=== PATIENT | male | born 1955 | race Caucasian/White ===

== ENCOUNTER 2017-01-25 08:48 | Inpatient (IN) | payer MEDICAID, OTHER ==
[~2017-01-25] VITALS: Ht 177.8 cm; Wt 72.5 kg
[~2017-01-25 08:48] MED LIST: DIVA125T14 PO; OXCA150T3 PO
[2017-01-25] MEDS ORDERED: CEFTRIAXONE 1 GM/50 ML (PMX) 50 ML IVPB STA (09:02)
[2017-01-25] MEDS ORDERED: SOD CHLORIDE 0.9% 500 ML IV STA (09:02)
[2017-01-25] MEDS ORDERED: ALBUTEROL 0.5% (NEB) 2.5 MG/0.5 ML AMP INH STA (09:02)
[2017-01-25] MEDS ORDERED: AZITHROMYCIN 500MG/NS (PMX) 250 ML IV STA (09:02)
[2017-01-25] MEDS ORDERED: METHYLPREDNISOLONE 125 MG INJ IV ONE (09:30)
--- NOTE | 2017-01-25 09:36 | RADRPT ---
PROCEDURE: XR Chest. CLINICAL INDICATION: Shortness of breath TECHNIQUE: Single frontal view of the chest was obtained COMPARISON: None FINDINGS: The heart and mediastinum are within normal limits. There is elevation of the left diaphragm with left lower lobe atelectasis versus consolidation. There is no pleural effusion or pneumothorax. RPTAT: AA IMPRESSION: Moderate elevation of the left diaphragm with left lower lobe atelectasis versus consolidation. .Alex Adair MD, MD Date Time Electronically viewed and signed by .Alex Adair MD, on 01/25/2017 09:35 .S/
[2017-01-25] MEDS ORDERED: NICOTINE (21 MG/24 HR) PATCH TRANSDERM ONE (11:30)
[2017-01-25] MEDS ORDERED: SOD CHLORIDE 0.9% 1,000 ML IV SCH (12:34)
--- NOTE | 2017-01-25 12:39 | ERD ---
ER Documentation Chief Complaint Chief Complaint sob x 2 days, feels tired h/o copd HPI This is 62-year-old male with a history of COPD complaining of cough with productive sputum for 3 days subjective chills does not know if he has had a fever. He said gradually worsening shortness of breath is complaining of COPD exacerbation. No substernal chest pressure no back pain or nausea vomiting diarrhea ROS All systems reviewed and are negative except as per history of present illness. Medications Home Meds Reported Medications Oxcarbazepine* (Trileptal*) 150 Mg Tablet, PO BID, TAB 06/14/14 Divalproex Sodium* (Depakote*) 125 Mg Tablet., PO QID, TAB 06/14/14 Allergies Allergies: Coded Allergies: Unknown: Unable to obtain (Unverified , 06/14/14) PMhx/Soc Hx Respiratory Disorders: Yes (COPD) Hx Cardiac Disorders: Yes (HTN) Hx Miscellaneous Medical Probl: Yes (Schizophrenia, schizoaffective DO) Hx Alcohol Use: No Hx Substance Use: Yes (Marijuana) Hx Tobacco Use: Yes (Pack q day) Smoking Status: Current every day smoker FmHx Family History: No coronary disease Physical Exam Vitals Vital Signs Date Time Temp Pulse Resp B/P Pulse Ox O2 Delivery O2 Flow Rate FiO2 01/25/17 12:42 89 28 128/93 94 Nasal Cannula 3.0 01/25/17 09:37 Nasal Cannula 4.0 01/25/17 09:37 Nasal Cannula 4 01/25/17 09:37 99 20 128/93 94 Nasal Cannula 4.0 01/25/17 09:13 107 28 89 21 01/25/17 08:50 99.8 105 20 123/84 91 Physical Exam Const: Well-developed, well-nourished Head: Atraumatic, normocephalic Eyes: Normal Conjunctiva, PERRLA, EOMI, normal sclera, no nystagmus ENT: Normal External Ears, Nose and Mouth, moist mucus membranes. Neck: Full range of motion. No meningismus, no lymphadenopathy. Resp: Decreased breath sounds bilaterally with diffuse rhonchi Cardio: Regular rate and rhythm, no murmurs, S1 S2 present Abd: Soft, non tender x 4, non distended. Normal bowel sounds, no guarding or rebound, no pulsitile abdominal masses or bruits Skin: No petechiae or rashes, no ecchymosis , no maculopapular rash Back: No midline or flank tenderness Ext: No cyanosis, or edema, FROM x 4, normal inspection, neurovascularly intact x 4 Neur: Awake and alert, STR 5/5 x 4, sensation intact x 4, no focal findings, cerebellum intact Psych: Normal Mood and Affect Result Diagram: 01/25/1791901/25/17919 Results 24 hrs Laboratory Tests Test 01/25/17 09:20 White Blood Count 17.810^3/ul Red Blood Count 4.3510^6/ul Hemoglobin 13.9g/dl Hematocrit 39.3% Mean Corpuscular Volume 90.3fl Mean Corpuscular Hemoglobin 32.0pg Mean Corpuscular Hemoglobin Concent 35.4g/dl Red Cell Distribution Width 14.2% Platelet Count 18725^3/UL Mean Platelet Volume 11.2fl Neutrophils % 84.6% Lymphocytes % 5.4% Monocytes % 8.8% Eosinophils % 0.3% Basophils % 0.2% Nucleated Red Blood Cells % 0.0/100WBC Neutrophils # 15.110^3/ul Lymphocytes # 1.010^3/ul Monocytes # 1.610^3/ul Eosinophils # 0.110^3/ul Basophils # 0.010^3/ul Nucleated Red Blood Cells # 0.010^3/ul Sodium Level 137mmol/L Potassium Level 4.0mmol/L Chloride Level 98mmol/L Carbon Dioxide Level 31mmol/L Anion Gap 12 Blood Urea Nitrogen 14mg/dl Creatinine 0.63mg/dl Glucose Level 96mg/dl Calcium Level 9.0mg/dl Total Bilirubin 0.9mg/dl Direct Bilirubin 0.00mg/dl Indirect Bilirubin 0.9mg/dl Aspartate Amino Transf (AST/SGOT) 62IU/L Alanine Aminotransferase (ALT/SGPT) 34IU/L Alkaline Phosphatase 75IU/L Troponin I 0.031ng/ml Total Protein 7.7g/dl Albumin 3.9g/dl Globulin 3.80g/dl Albumin/Globulin Ratio 1.02 Current Medications Medications (Trade) Dose Ordered Sig/Jennifer Route PRN Reason Start Time Stop Time Status Last Admin Dose Admin Sodium Chloride (NS) 500 ml @ 500 mls/hr Q1H STAT IV 01/25/17 09:02 01/25/17 10:01 DC 01/25/17 09:30 Methylprednisolone Sodium Succinate 125 mg 125 mg ONCE ONCE IV 01/25/17 09:30 01/25/17 09:31 DC 01/25/17 09:29 Azithromycin 250 ml @ 250 mls/hr ONCE STAT IV 01/25/17 09:02 01/25/17 10:01 DC 01/25/17 09:29 Ceftriaxone Sodium (Rocephin) 50 ml @ 100 mls/hr ONCE STAT IVPB 01/25/17 09:02 01/25/17 09:31 DC 01/25/17 09:30 Albuterol (Proventil 0.5% (Neb)) 10 mg ONCE STAT INH 01/25/17 09:02 01/25/17 09:05 DC 01/25/17 09:08 Nicotine 1 patch 1 patch ONCE ONCE TRANSDERM 01/25/17 11:30 01/25/17 11:31 DC 01/25/17 11:55 Sodium Chloride (NS) 1,000 ml @ 80 mls/hr [id number] IV 01/25/17 12:34 01/26/17 01:03 Ondansetron HCl (Zofran Inj) 4 mg BRIDGE ORDER PRN IV NAUSEA AND/OR VOMITING 01/25/17 13:00 01/26/17 12:59 Acetaminophen (Tylenol Tab) 650 mg ER BRIDGE PRN PO MILD PAIN/FEVER 01/25/17 13:00 01/26/17 12:59 Procedures/MDM EKG: Rate/Rhythm: Sinus tachycardia QRS, ST, QT: NORMAL CA, QRS, QT] Impression: Sinus tachycardia PROCEDURE: XR Chest. CLINICAL INDICATION: Shortness of breath TECHNIQUE: Single frontal view of the chest was obtained COMPARISON: None FINDINGS: The heart and mediastinum are within normal limits. There is elevation of the left diaphragm with left lower lobe atelectasis versus consolidation. There is no pleural effusion or pneumothorax. RPTAT: AA IMPRESSION: Moderate elevation of the left diaphragm with left lower lobe atelectasis versus consolidation. .Alex Adair MD, MD Date Time Electronically viewed and signed by .Alex Adair MD, on 01/25/2017 09: 35 .S/ CC: DALILA GEORGES DO Patient received breathing treatments blood cultures and IV antibiotics. We will met the patient for pneumonia left lower lobe with COPD exacerbation Departure Diagnosis: Primary Impression: Left lower lobe pneumonia Pneumonia type: due to unspecified organism Qualified Code: J18.1 - Pneumonia of left lower lobe due to infectious organism Additional Impression: COPD exacerbation Condition: Stable DALILA GEORGES DO Jan 25, 2017 12:39
[2017-01-25] MEDS ORDERED: ACETAMINOPHEN 325 MG TAB PO PRN ×2 (13:00→22:30)
[2017-01-25] MEDS ORDERED: ONDANSETRON 4 MG INJ IV PRN ×2 (13:00→22:30)
[2017-01-25 14:23] VITALS: Ht 177.8 cm; Wt 72.5 kg
[2017-01-25 14:40] VITALS: BP 125/86; PULSE 89; RESP 18
[2017-01-25 20:00] VITALS: BP 138/87; RESP 18
--- NOTE | 2017-01-25 22:13 | HP ---
Date/Time of Note Date/Time of Note DATE: 01/25/17 TIME: 22:10 Assessment/Plan VTE Prophylaxis VTE Prophylaxis Intervention: SCD's Lines/Catheters Urinary Cath still in place: No Assessment/Plan Chief Complaint/Hosp Course Assessment and plan 1. COPD with exacerbation. Alcohol Law Enforcement Agent was consulted. Continue bronchodilators. Continue on O2 and titrate down as tolerated. 2. Sepsis and pneumonia. Patient does have chest radiograph consistent with possible pneumonia. Will place on antibiotics for now. Monitor for clinical improvement. 3. Reported history of myocardial infarction. Follow-up on echocardiogram. We will get spike machine feeder consultation pending her clinical course. 4. Reported psychiatric disorder. Patient does report following up with outpatient mental clinic. Patient to be resumed on his home medications once obtained. Admission process time greater than [address] Singh Problems: HPI/ROS Admit Date/Time Admit Date/Time Jan 25, 2017 at 12:36 Hx of Present Illness This is a 62-year-old male with history of COPD, bipolar disorder, reported psychotic tendencies, manic depression, hypertension, reported myocardial infarction, who came to [facility] due to reports of shortness of breath. Of note patient was recently released from senior living on January 22, 2017. He reportedly went to the street thereafter and started to have some cough with associated shortness of breath and congestion. He reports that this progressively got worse and as such was brought to [facility] for further evaluation. Upon examination patient did have initial chest x-ray did show him to have moderate elevation of left diaphragm with left lower lobe atelectasis versus consolidation. He was slightly tachycardic initially with respiratory rate as high as 28. His pulse ox on room air initially was 89% as well. On labs he had a white count of 17.8 I did have clinical picture of sepsis with pneumonia. He was noted with pneumonia normocytic normochromic. BMP was otherwise unremarkable and troponin I was negative. We will evaluate him for the aformentiond issues. ROS 12 point review of systems obtained and entirely negative except that mentioned in the history of present illness PMH/Family/Social Past Medical History f COPD, bipolar disorder, reported psychotic tendencies, manic depression, hypertension, reported myocardial infarction Past Surgical History Past Surgical Hx: no surgical history Family History Significant Family History: no pertinent family hx Social History Smoking Status: Current some day smoker Drug Use: marijuana Exam/Review of Systems Vital Signs Vitals Vital Signs Date Time Temp Pulse Resp B/P Pulse Ox O2 Delivery O2 Flow Rate FiO2 01/25/17 14:46 Nasal Cannula 3.0 01/25/17 14:40 98.2 89 18 125/86 94 01/25/17 09:13 21 Exam Constitutional: alert, oriented Psych: nl mood/affect Head: normocephalic Neck: non-tender, supple Respiratory: wheezing Cardiovascular: other (Regular rate) Gastrointestinal: non-tender, soft Musculoskeletal: nl extremities to inspection, nl gait and stance Neurological: BOND MANAGER II-XII intact, nl mental status, nl speech Skin: nl turgor Labs Result Diagram: 01/25/1791901/25/17919 Medications Medications Current Medications Influenza Virus Vaccine (Fluzone) 0.5 ml ONCE ONCE IM* ; Start 01/26/17 at 09:00 ; Stop 01/26/17 at 09:01 Ondansetron HCl (Zofran Inj) 4 mg Q6H PRN IV NAUSEA AND/OR VOMITING; Start 01/25/17 at 22:30; Status UNV Acetaminophen (Tylenol Tab) 650 mg Q6H PRN PO PAIN LEVEL 1-3 OR FEVER; Start 01/25/17 at 22:30; Status UNV Acetaminophen (Tylenol Supp) 650 mg Q6H PRN [place] PAIN LEVEL 1-3 OR FEVER; Start 01/25/17 at 22:30; Status UNV Acetaminophen/ Hydrocodone Bitart ([place] (5/325)) 1 tab Q6H PRN PO MODERATE PAIN LEVEL 4-6; Start 01/25/17 at 22:30; Status UNV Acetaminophen/ Hydrocodone Bitart ([place] (5/325)) 2 tab Q6H PRN PO SEVERE PAIN LEVEL 7-10; Start 01/25/17 at 22:30; Status UNV Morphine Sulfate (morphine) 2 mg Q4H PRN IV SEVERE PAIN LEVEL 7-10; Start 01/25 at 22:30; Status UNV Docusate Sodium (Colace) 100 mg Q12H PRN PO CONSTIPATION; Start 01/25/17 at 22: 30; Status UNV Magnesium Hydroxide (Milk Of Mag) 30 ml DAILY PRN PO CONSTIPATION; Start at 22:30; Status UNV Bisacodyl (Dulcolax Supp) 10 mg DAILY PRN [place] CONSTIPATION; Start 01/25/17 at 22 :30; Status UNV Pantoprazole 40 mg 40 mg DAILY@06 IV ; Start 01/26/17 at 06:00; Status UNV Azithromycin 250 ml @ 250 mls/hr Q24H IVPB ; Start 01/25/17 at 22:30; Status UNV Ceftriaxone Sodium (Rocephin) 50 ml @ 100 mls/hr Q24H IVPB ; Start 01/25/17 at 22:30; Status UNV TAL MOSES Jan 25, 2017 22:13
--- NOTE | 2017-01-25 22:13 | HP ---
Date/Time of Note Date/Time of Note DATE: 01/25/17 TIME: 22:10 Assessment/Plan VTE Prophylaxis VTE Prophylaxis Intervention: SCD's Lines/Catheters Urinary Cath still in place: No Assessment/Plan Chief Complaint/Hosp Course Assessment and plan 1. COPD with exacerbation. Vp Human Resources was consulted. Continue bronchodilators. Continue on O2 and titrate down as tolerated. 2. Sepsis and pneumonia. Patient does have chest radiograph consistent with possible pneumonia. Will place on antibiotics for now. Monitor for clinical improvement. 3. Reported history of myocardial infarction. Follow-up on echocardiogram. We will get road packer operator consultation pending her clinical course. 4. Reported psychiatric disorder. Patient does report following up with outpatient mental clinic. Patient to be resumed on his home medications once obtained. Admission process time greater than [address] Singh Problems: HPI/ROS Admit Date/Time Admit Date/Time Jan 25, 2017 at 12:36 Hx of Present Illness This is a 62-year-old male with history of COPD, bipolar disorder, reported psychotic tendencies, manic depression, hypertension, reported myocardial infarction, who came to [facility] due to reports of shortness of breath. Of note patient was recently released from senior care on January 22, 2017. He reportedly went to the street thereafter and started to have some cough with associated shortness of breath and congestion. He reports that this progressively got worse and as such was brought to [facility] for further evaluation. Upon examination patient did have initial chest x-ray did show him to have moderate elevation of left diaphragm with left lower lobe atelectasis versus consolidation. He was slightly tachycardic initially with respiratory rate as high as 28. His pulse ox on room air initially was 89% as well. On labs he had a white count of 17.8 I did have clinical picture of sepsis with pneumonia. He was noted with pneumonia normocytic normochromic. BMP was otherwise unremarkable and troponin I was negative. We will evaluate him for the aformentiond issues. ROS 12 point review of systems obtained and entirely negative except that mentioned in the history of present illness PMH/Family/Social Past Medical History f COPD, bipolar disorder, reported psychotic tendencies, manic depression, hypertension, reported myocardial infarction Past Surgical History Past Surgical Hx: no surgical history Family History Significant Family History: no pertinent family hx Social History Smoking Status: Current some day smoker Drug Use: marijuana Exam/Review of Systems Vital Signs Vitals Vital Signs Date Time Temp Pulse Resp B/P Pulse Ox O2 Delivery O2 Flow Rate FiO2 01/25/17 14:46 Nasal Cannula 3.0 01/25/17 14:40 98.2 89 18 125/86 94 01/25/17 09:13 21 Exam Constitutional: alert, oriented Psych: nl mood/affect Head: normocephalic Neck: non-tender, supple Respiratory: wheezing Cardiovascular: other (Regular rate) Gastrointestinal: non-tender, soft Musculoskeletal: nl extremities to inspection, nl gait and stance Neurological: PAINT SPRAYER SANDBLASTER II-XII intact, nl mental status, nl speech Skin: nl turgor Labs Result Diagram: 01/25/1791901/25/17919 Medications Medications Current Medications Influenza Virus Vaccine (Fluzone) 0.5 ml ONCE ONCE IM* ; Start 01/26/17 at 09:00 ; Stop 01/26/17 at 09:01 Ondansetron HCl (Zofran Inj) 4 mg Q6H PRN IV NAUSEA AND/OR VOMITING; Start 01/25/17 at 22:30; Status UNV Acetaminophen (Tylenol Tab) 650 mg Q6H PRN PO PAIN LEVEL 1-3 OR FEVER; Start 01/25/17 at 22:30; Status UNV Acetaminophen (Tylenol Supp) 650 mg Q6H PRN [place] PAIN LEVEL 1-3 OR FEVER; Start 01/25/17 at 22:30; Status UNV Acetaminophen/ Hydrocodone Bitart ([place] (5/325)) 1 tab Q6H PRN PO MODERATE PAIN LEVEL 4-6; Start 01/25/17 at 22:30; Status UNV Acetaminophen/ Hydrocodone Bitart ([place] (5/325)) 2 tab Q6H PRN PO SEVERE PAIN LEVEL 7-10; Start 01/25/17 at 22:30; Status UNV Morphine Sulfate (morphine) 2 mg Q4H PRN IV SEVERE PAIN LEVEL 7-10; Start 01/25 at 22:30; Status UNV Docusate Sodium (Colace) 100 mg Q12H PRN PO CONSTIPATION; Start 01/25/17 at 22: 30; Status UNV Magnesium Hydroxide (Milk Of Mag) 30 ml DAILY PRN PO CONSTIPATION; Start at 22:30; Status UNV Bisacodyl (Dulcolax Supp) 10 mg DAILY PRN [place] CONSTIPATION; Start 01/25/17 at 22 :30; Status UNV Pantoprazole 40 mg 40 mg DAILY@06 IV ; Start 01/26/17 at 06:00; Status UNV Azithromycin 250 ml @ 250 mls/hr Q24H IVPB ; Start 01/25/17 at 22:30; Status UNV Ceftriaxone Sodium (Rocephin) 50 ml @ 100 mls/hr Q24H IVPB ; Start 01/25/17 at 22:30; Status UNV TAL MOSES Jan 25, 2017 22:13
--- NOTE | 2017-01-25 22:13 | HP ---
Date/Time of Note Date/Time of Note DATE: 01/25/17 TIME: 22:10 Assessment/Plan VTE Prophylaxis VTE Prophylaxis Intervention: SCD's Lines/Catheters Urinary Cath still in place: No Assessment/Plan Chief Complaint/Hosp Course Assessment and plan 1. COPD with exacerbation. Surgical Processor was consulted. Continue bronchodilators. Continue on O2 and titrate down as tolerated. 2. Sepsis and pneumonia. Patient does have chest radiograph consistent with possible pneumonia. Will place on antibiotics for now. Monitor for clinical improvement. 3. Reported history of myocardial infarction. Follow-up on echocardiogram. We will get slag dumper consultation pending her clinical course. 4. Reported psychiatric disorder. Patient does report following up with outpatient mental clinic. Patient to be resumed on his home medications once obtained. Admission process time greater than [address] Singh Problems: HPI/ROS Admit Date/Time Admit Date/Time Jan 25, 2017 at 12:36 Hx of Present Illness This is a 62-year-old male with history of COPD, bipolar disorder, reported psychotic tendencies, manic depression, hypertension, reported myocardial infarction, who came to [facility] due to reports of shortness of breath. Of note patient was recently released from long-term on January 22, 2017. He reportedly went to the street thereafter and started to have some cough with associated shortness of breath and congestion. He reports that this progressively got worse and as such was brought to [facility] for further evaluation. Upon examination patient did have initial chest x-ray did show him to have moderate elevation of left diaphragm with left lower lobe atelectasis versus consolidation. He was slightly tachycardic initially with respiratory rate as high as 28. His pulse ox on room air initially was 89% as well. On labs he had a white count of 17.8 I did have clinical picture of sepsis with pneumonia. He was noted with pneumonia normocytic normochromic. BMP was otherwise unremarkable and troponin I was negative. We will evaluate him for the aformentiond issues. ROS 12 point review of systems obtained and entirely negative except that mentioned in the history of present illness PMH/Family/Social Past Medical History f COPD, bipolar disorder, reported psychotic tendencies, manic depression, hypertension, reported myocardial infarction Past Surgical History Past Surgical Hx: no surgical history Family History Significant Family History: no pertinent family hx Social History Smoking Status: Current some day smoker Drug Use: marijuana Exam/Review of Systems Vital Signs Vitals Vital Signs Date Time Temp Pulse Resp B/P Pulse Ox O2 Delivery O2 Flow Rate FiO2 01/25/17 14:46 Nasal Cannula 3.0 01/25/17 14:40 98.2 89 18 125/86 94 01/25/17 09:13 21 Exam Constitutional: alert, oriented Psych: nl mood/affect Head: normocephalic Neck: non-tender, supple Respiratory: wheezing Cardiovascular: other (Regular rate) Gastrointestinal: non-tender, soft Musculoskeletal: nl extremities to inspection, nl gait and stance Neurological: DROP HAMMER MECHANIC II-XII intact, nl mental status, nl speech Skin: nl turgor Labs Result Diagram: 01/25/1791901/25/17919 Medications Medications Current Medications Influenza Virus Vaccine (Fluzone) 0.5 ml ONCE ONCE IM* ; Start 01/26/17 at 09:00 ; Stop 01/26/17 at 09:01 Ondansetron HCl (Zofran Inj) 4 mg Q6H PRN IV NAUSEA AND/OR VOMITING; Start 01/25/17 at 22:30; Status UNV Acetaminophen (Tylenol Tab) 650 mg Q6H PRN PO PAIN LEVEL 1-3 OR FEVER; Start 01/25/17 at 22:30; Status UNV Acetaminophen (Tylenol Supp) 650 mg Q6H PRN [place] PAIN LEVEL 1-3 OR FEVER; Start 01/25/17 at 22:30; Status UNV Acetaminophen/ Hydrocodone Bitart ([place] (5/325)) 1 tab Q6H PRN PO MODERATE PAIN LEVEL 4-6; Start 01/25/17 at 22:30; Status UNV Acetaminophen/ Hydrocodone Bitart ([place] (5/325)) 2 tab Q6H PRN PO SEVERE PAIN LEVEL 7-10; Start 01/25/17 at 22:30; Status UNV Morphine Sulfate (morphine) 2 mg Q4H PRN IV SEVERE PAIN LEVEL 7-10; Start 01/25 at 22:30; Status UNV Docusate Sodium (Colace) 100 mg Q12H PRN PO CONSTIPATION; Start 01/25/17 at 22: 30; Status UNV Magnesium Hydroxide (Milk Of Mag) 30 ml DAILY PRN PO CONSTIPATION; Start at 22:30; Status UNV Bisacodyl (Dulcolax Supp) 10 mg DAILY PRN [place] CONSTIPATION; Start 01/25/17 at 22 :30; Status UNV Pantoprazole 40 mg 40 mg DAILY@06 IV ; Start 01/26/17 at 06:00; Status UNV Azithromycin 250 ml @ 250 mls/hr Q24H IVPB ; Start 01/25/17 at 22:30; Status UNV Ceftriaxone Sodium (Rocephin) 50 ml @ 100 mls/hr Q24H IVPB ; Start 01/25/17 at 22:30; Status UNV TAL MOSES Jan 25, 2017 22:13
[2017-01-25] MEDS ORDERED: morphine 2 MG INJ IV PRN (22:30)
[2017-01-25] MEDS ORDERED: DOCUSATE SODIUM 100 MG CAP PO PRN (22:30)
[2017-01-25] MEDS ORDERED: NACL 0.9% 3 ML SYG IV SCH (22:30)
[2017-01-25] MEDS ORDERED: HYDROCODONE/APAP (5/325) TAB PO PRN (22:30)
[2017-01-25] MEDS ORDERED: MAGNESIUM HYDROXIDE 30ML CUP PO PRN (22:30)
[2017-01-25] MEDS ORDERED: ACETAMINOPHEN 650 MG SUPP PR PRN (22:30)
[2017-01-25] MEDS ORDERED: BISACODYL 10 MG SUPP PR PRN (22:30)
[2017-01-25] MEDS: SOD CHLORIDE 0.9% 1,000 ML IV SCH (23:30)
--- NOTE | 2017-01-26 01:36 | CONS ---
DATE OF ADMISSION: 01/25/2017 DATE OF CONSULTATION: TYPE OF CONSULTATION: Pulmonary. REASON FOR CONSULTATION: Shortness of breath and cough. Thank you, Dr. Gmoez, for this consultation. HISTORY OF PRESENT ILLNESS: This is a 62-year-old patient with extensive tobacco history, smokes 1 pack per day, continues to smoke, admitted with several-day history of increasing cough, congestion, but no hemoptysis, hematemesis. No nausea, no vomiting. He states he has lost 10 to 15 pounds of weight in the last year or so. PAST MEDICAL HISTORY: Tobacco and marijuana use, essential hypertension and schizoaffective disorde r. MEDICATIONS: Per chart. ALLERGIES: NONE. SOCIAL HISTORY: Positive tobacco and marijuana history, alcohol p.r.n. PHYSICAL EXAMINATION: GENERAL: Thin gentleman, awake, alert, oriented, talking in full and complete sentences. VITAL SIGNS: Currently afebrile. Pulse is 89, blood pressure 125/86, O2 saturation 96% on 3 L nasa l cannula. NECK: Supple. No JVD or lymphadenopathy. CARDIAC: S1, S2, no added sounds or murmurs. CHEST: Diminished air entry bilaterally. ABDOMEN: Soft, nontender. No guarding or rebound. EXTREMITIES: No cyanosis, clubbing, or edema. NEUROLOGIC: Grossly intact. No focal deficits. LABORATORY DATA: White count 17.8, hemoglobin 13.9, platelets of 153. Chemistry within normal limi ts. DIAGNOSTIC DATA: Chest x-ray demonstrates elevation of left hemidiaphragm with left lower lobe atel ectasis versus consolidation. IMPRESSION AND PLAN: 1. Likely community-acquired pneumonia. 2. Probable chronic obstructive pulmonary disease with acute exacerbation. 3. Consent for possible underlying lung mass given extensive tobacco history. The patient will need: 1. Bronchodilators. 2. Antibiotics. 3. Supplemental O2. 4. CT chest, noncontrast. 5. DVT and GI prophylaxis. Dictated By: DENISA SCHMIDT/FOZIA Conf#: [id number] DID#: [id number]
[2017-01-26] MEDS: ALBUTEROL/IPRATROPIUM (NEB) 3 ML AMP HHN SCH ×4 (02:04→21:06)
[2017-01-26 02:54] VITALS: BP 156/94; RESP 24
[2017-01-26] MEDS: SOD CHLORIDE 0.9% 1,000 ML IV SCH (03:17)
--- NOTE | 2017-01-26 04:15 | RADRPT ---
PROCEDURE: CT Chest without contrast. CLINICAL INDICATION: COPD. Pneumonia. TECHNIQUE: CT scan of the chest without contrast was performed on a multidetector high-resolution CT scanner. Coronal and sagittal reformatted images were obtained from the axial source images. The total exam CTDI equals 10.16 mGy and the total exam DLP equals 415.72 mGy-cm. One or more of the following dose reduction techniques were utilized: 1.) Automated exposure control 2.) Adjustment of the mA +/- kV according to patient's size 3.) Use of iterative reconstruction technique. COMPARISON: Plain film chest dated today, earlier in the day. FINDINGS: Elevation left hemidiaphragm. Left lower lobe partial collapse versus dense pneumonia at the lower s egments. Bronchiolitis at the posterior mid segments of the left upper lobe. Fibrotic banding versus atelectasis in the region of the lingula. Mild atelectasis at the posterior right costophrenic angl e. Mild ground-glass opacities at the lingula and the anterior right middle lobe, perhaps representi ng early pneumonia versus bronchiolitis. No evident pleural effusion or pneumothorax. Superior mediastinum bilateral paratracheal lymph nodes are mildly prominent measuring up to about 2 1 x 8 mm on the left. Findings otherwise nonspecific. Small shoddy lymph nodes are seen in the regio n of the left mediastinal AP window. The azygos lymph node measuring 26 x 21 mm, and demonstrates a fatty hilum. Otherwise, the mediastinum is unremarkable without evidence for mass or lymphadenopathy . The vascular structures of the mediastinum are normal in course and caliber. Aortic vascular cindy cifications and coronary artery calcifications are present. The heart size is likely upper limits o f normal, without evidence for pericardial thickening or effusion. The axillary regions, subpectoral regions, and supraclavicular regions are all unremarkable. The harris rrounding chest wall is unremarkable. Imaging obtained through the upper abdomen reveals no acute a bnormality. The surrounding osseous structures are remarkable for likely osteoporotic fracture defo rmities at the T5-T9 levels, with loss of central and anterior height. 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 Disc space narrowing and disc vacuum eff ect seen throughout the thoracic and upper lumbar spine. No osteolytic or osteoblastic lesion is det ected. IMPRESSION: 1. Elevation of left hemidiaphragm with atelectasis versus airspace disease in the posterior lower s egments of the left lower lobe, and differential considerations include pneumonia. 2. Mild atelectasis at the right posterior costophrenic angle. 3. Bronchiolitis in the posterior left upper lobe. 4. Atelectasis versus early airspace disease in the lingula and anterior right middle lobe. 5. Anterior mediastinal mild bilateral paratracheal adenopathy, otherwise nonspecific. RPTAT: [facility]U Physician Kelsi Date Time Electronically viewed and signed by Malcolm Amaral Physician on 01/26/2017 04:14 RS/
[2017-01-26] MEDS: HYDROCODONE/APAP (5/325) TAB PO PRN ×2 (04:53→20:30)
[2017-01-26] MEDS ORDERED: PANTOPRAZOLE 40 MG INJ ONE (04:55)
[2017-01-26] MEDS ORDERED: PANTOPRAZOLE 40 MG INJ IV SCH (06:00)
[2017-01-26 07:57] VITALS: BP 120/82; RESP 18
[2017-01-26] MEDS ORDERED: INFLUENZA VIRUS VACCINE 0.5 ML (DISPENSING) IM* ONE (09:00)
--- NOTE | 2017-01-26 09:08 | PN ---
Date/Time of Note Date/Time of Note DATE: 01/26/17 TIME: 09:05 Assessment/Plan VTE Prophylaxis VTE Prophylaxis Intervention: SCD's Lines/Catheters [facility] ([facility] Peripheral IV Urinary Cath still in place: No Assessment/Plan Chief Complaint/Hosp Course Assessment and plan 1. COPD with exacerbation. 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 Continue bronchodilators. Continue on O2 and titrate down as tolerated. Slowly improving 2. Sepsis and pneumonia. Patient does have chest radiograph consistent with pneumonia. Continue antibiotics. Plan for follow-up radiograph of the chest 3. Reported history of myocardial infarction. Beta-ivana on hold for now due to wheezing. Echocardiogram pending. 4. Reported psychiatric disorder. Patient does report following up with outpatient mental clinic. Patient to be resumed on his home medications once obtained. Disposition plan: Slowly improving. 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 Continue with antibiotics and breathing treatments Discussed plan of care with Dr. Singh Problems: Subjective 24 Hr Interval Summary Free Text/Dictation Reports little better breathing today. Exam/Review of Systems Vital Signs Vitals Vital Signs Date Time Temp Pulse Resp B/P Pulse Ox O2 Delivery O2 Flow Rate FiO2 01/26/17 07:57 97.6 73 18 120/82 92 01/26/17 02:05 2.0 01/26/17 02:05 Nasal Cannula 01/25/17 09:13 21 Intake and Output 01/25/17 01/25/17 01/26/17 15:00 23:00 07:00 Intake Total 400 ml 1625 ml Balance 400 ml 1625 ml Exam Constitutional: alert, oriented Psych: nl mood/affect Head: normocephalic Neck: non-tender, supple Respiratory: wheezing Cardiovascular: other (Regular rate) Gastrointestinal: non-tender, soft Musculoskeletal: nl extremities to inspection, nl gait and stance Neurological: PULP DRIER II-XII intact, nl mental status, nl speech Skin: nl turgor Results Result Diagram: 01/26/17 0444 01/26/17 0448 Results 24 hrs Laboratory Tests Test 01/25/17 09:20 01/26/17 04:44 01/26/17 04:48 White Blood Count 17.8 #H 7.7 # Red Blood Count 4.35 L 4.23 L Hemoglobin 13.9 L 13.1 L Hematocrit 39.3 L 39.4 L Mean Corpuscular Volume 90.3 93.1 Mean Corpuscular Hemoglobin 32.0 31.0 Mean Corpuscular Hemoglobin Concent 35.4 33.2 Red Cell Distribution Width 14.2 14.8 H Platelet Count 153 144 Mean Platelet Volume 11.2 H 11.6 H Neutrophils % 84.6 H 85.0 H Lymphocytes % 5.4 L 9.2 L Monocytes % 8.8 5.2 Eosinophils % 0.3 0.0 Basophils % 0.2 0.1 Nucleated Red Blood Cells % 0.0 0.0 Neutrophils # 15.1 H 6.5 Lymphocytes # 1.0 0.7 L Monocytes # 1.6 H 0.4 Eosinophils # 0.1 0.0 Basophils # 0.0 0.0 Nucleated Red Blood Cells # 0.0 0.0 Sodium Level 137 147 H Potassium Level 4.0 4.3 Chloride Level 98 108 # Carbon Dioxide Level 31 32 H Anion Gap 12 11 Blood Urea Nitrogen 14 14 Creatinine 0.63 0.59 L Glucose Level 96 153 Calcium Level 9.0 9.1 Total Bilirubin 0.9 0.1 L Direct Bilirubin 0.00 0.00 Indirect Bilirubin 0.9 0.1 Aspartate Amino Transf (AST/SGOT) 62 H 39 Alanine Aminotransferase (ALT/SGPT) 34 32 Alkaline Phosphatase 75 72 Troponin I 0.031 Total Protein 7.7 6.9 Albumin 3.9 3.4 Globulin 3.80 H 3.50 H Albumin/Globulin Ratio 1.02 0.97 Hemoglobin A1c 5.4 Phosphorus Level 3.1 Magnesium Level 2.1 Triglycerides Level 52 Cholesterol Level 124 LDL Cholesterol, Calculated 66 HDL Cholesterol 48 Cholesterol/HDL Ratio 2.5 Thyroid Stimulating Hormone (TSH) 0.222 L Free Thyroxine Index 3.05 Thyroxine (T4) 8.1 Triiodothyronine (T3) Uptake 37.6 Medications Medications Current Medications Ondansetron HCl (Zofran Inj) 4 mg Q6H PRN IV NAUSEA AND/OR VOMITING; Start 01/25/17 at 22:30 Acetaminophen (Tylenol Tab) 650 mg Q6H PRN PO PAIN LEVEL 1-3 OR FEVER; Start 01/25/17 at 22:30 Acetaminophen (Tylenol Supp) 650 mg Q6H PRN [place] PAIN LEVEL 1-3 OR FEVER; Start 01/25/17 at 22:30 Acetaminophen/ Hydrocodone Bitart ([place] (5/325)) 1 tab Q6H PRN PO MODERATE PAIN LEVEL 4-6 Last administered on 01/26/17 04:53; Admin Dose 1 TAB; Start at 22:30 Acetaminophen/ Hydrocodone Bitart ([place] (5/325)) 2 tab Q6H PRN PO SEVERE PAIN LEVEL 7-10; Start 01/25/17 at 22:30 Morphine Sulfate (morphine) 2 mg Q4H PRN IV SEVERE PAIN LEVEL 7-10; Start 01/25 at 22:30 Docusate Sodium (Colace) 100 mg Q12H PRN PO CONSTIPATION; Start 01/25/17 at 22: 30 Magnesium Hydroxide (Milk Of Mag) 30 ml DAILY PRN PO CONSTIPATION; Start at 22:30 Bisacodyl (Dulcolax Supp) 10 mg DAILY PRN [place] CONSTIPATION; Start 01/25/17 at 22 :30 Pantoprazole 40 mg 40 mg DAILY@06 IV Last administered on 01/26/17 05:04; Admin Dose 40 MG; Start 01/26/17 at 06:00 Azithromycin 250 ml @ 250 mls/hr Q24H IVPB ; Start 01/26/17 at 09:00 Ceftriaxone Sodium (Rocephin) 50 ml @ 100 mls/hr Q24H IVPB ; Start 01/26/17 at 08:00 TAL MOSES Jan 26, 2017 09:08
--- NOTE | 2017-01-26 09:08 | PN ---
Date/Time of Note Date/Time of Note DATE: 01/26/17 TIME: 09:05 Assessment/Plan VTE Prophylaxis VTE Prophylaxis Intervention: SCD's Lines/C[facility]ters [facility] IV Urinary Cath still in place: No Assessment/Plan Chief Complaint/Hosp Course Assessment and plan 1. COPD with exacerbation. 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 Continue bronchodilators. Continue on O2 and titrate down as tolerated. Slowly improving 2. Sepsis and pneumonia. Patient does have chest radiograph consistent with pneumonia. Continue antibiotics. Plan for follow-up radiograph of the chest 3. Reported history of myocardial infarction. Beta-ivana on hold for now due to wheezing. Echocardiogram pending. 4. Reported psychiatric disorder. Patient does report following up with outpatient mental clinic. Patient to be resumed on his home medications once obtained. Disposition plan: Slowly improving. 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 Continue with antibiotics and breathing treatments Discussed plan of care with Dr. Singh Problems: Subjective 24 Hr Interval Summary Free Text/Dictation Reports little better breathing today. Exam/Review of Systems Vital Signs Vitals Vital Signs Date Time Temp Pulse Resp B/P Pulse Ox O2 Delivery O2 Flow Rate FiO2 01/26/17 07:57 97.6 73 18 120/82 92 01/26/17 02:05 2.0 01/26/17 02:05 Nasal Cannula 01/25/17 09:13 21 Intake and Output 01/25/17 01/25/17 01/26/17 15:00 23:00 07:00 Intake Total 400 ml 1625 ml Balance 400 ml 1625 ml Exam Constitutional: alert, oriented Psych: nl mood/affect Head: normocephalic Neck: non-tender, supple Respiratory: wheezing Cardiovascular: other (Regular rate) Gastrointestinal: non-tender, soft Musculoskeletal: nl extremities to inspection, nl gait and stance Neurological: PHYSICAL SCIENTIST II-XII intact, nl mental status, nl speech Skin: nl turgor Results Result Diagram: 01/26/17 0444 01/26/17 0448 Results 24 hrs Laboratory Tests Test 01/25/17 09:20 01/26/17 04:44 01/26/17 04:48 White Blood Count 17.8 #H 7.7 # Red Blood Count 4.35 L 4.23 L Hemoglobin 13.9 L 13.1 L Hematocrit 39.3 L 39.4 L Mean Corpuscular Volume 90.3 93.1 Mean Corpuscular Hemoglobin 32.0 31.0 Mean Corpuscular Hemoglobin Concent 35.4 33.2 Red Cell Distribution Width 14.2 14.8 H Platelet Count 153 144 Mean Platelet Volume 11.2 H 11.6 H Neutrophils % 84.6 H 85.0 H Lymphocytes % 5.4 L 9.2 L Monocytes % 8.8 5.2 Eosinophils % 0.3 0.0 Basophils % 0.2 0.1 Nucleated Red Blood Cells % 0.0 0.0 Neutrophils # 15.1 H 6.5 Lymphocytes # 1.0 0.7 L Monocytes # 1.6 H 0.4 Eosinophils # 0.1 0.0 Basophils # 0.0 0.0 Nucleated Red Blood Cells # 0.0 0.0 Sodium Level 137 147 H Potassium Level 4.0 4.3 Chloride Level 98 108 # Carbon Dioxide Level 31 32 H Anion Gap 12 11 Blood Urea Nitrogen 14 14 Creatinine 0.63 0.59 L Glucose Level 96 153 Calcium Level 9.0 9.1 Total Bilirubin 0.9 0.1 L Direct Bilirubin 0.00 0.00 Indirect Bilirubin 0.9 0.1 Aspartate Amino Transf (AST/SGOT) 62 H 39 Alanine Aminotransferase (ALT/SGPT) 34 32 Alkaline Phosphatase 75 72 Troponin I 0.031 Total Protein 7.7 6.9 Albumin 3.9 3.4 Globulin 3.80 H 3.50 H Albumin/Globulin Ratio 1.02 0.97 Hemoglobin A1c 5.4 Phosphorus Level 3.1 Magnesium Level 2.1 Triglycerides Level 52 Cholesterol Level 124 LDL Cholesterol, Calculated 66 HDL Cholesterol 48 Cholesterol/HDL Ratio 2.5 Thyroid Stimulating Hormone (TSH) 0.222 L Free Thyroxine Index 3.05 Thyroxine (T4) 8.1 Triiodothyronine (T3) Uptake 37.6 Medications Medications Current Medications Ondansetron HCl (Zofran Inj) 4 mg Q6H PRN IV NAUSEA AND/OR VOMITING; Start 01/25/17 at 22:30 Acetaminophen (Tylenol Tab) 650 mg Q6H PRN PO PAIN LEVEL 1-3 OR FEVER; Start 01/25/17 at 22:30 Acetaminophen (Tylenol Supp) 650 mg Q6H PRN [place] PAIN LEVEL 1-3 OR FEVER; Start 01/25/17 at 22:30 Acetaminophen/ Hydrocodone Bitart ([place] (5/325)) 1 tab Q6H PRN PO MODERATE PAIN LEVEL 4-6 Last administered on 01/26/17 04:53; Admin Dose 1 TAB; Start at 22:30 Acetaminophen/ Hydrocodone Bitart ([place] (5/325)) 2 tab Q6H PRN PO SEVERE PAIN LEVEL 7-10; Start 01/25/17 at 22:30 Morphine Sulfate (morphine) 2 mg Q4H PRN IV SEVERE PAIN LEVEL 7-10; Start 01/25 at 22:30 Docusate Sodium (Colace) 100 mg Q12H PRN PO CONSTIPATION; Start 01/25/17 at 22: 30 Magnesium Hydroxide (Milk Of Mag) 30 ml DAILY PRN PO CONSTIPATION; Start at 22:30 Bisacodyl (Dulcolax Supp) 10 mg DAILY PRN [place] CONSTIPATION; Start 01/25/17 at 22 :30 Pantoprazole 40 mg 40 mg DAILY@06 IV Last administered on 01/26/17 05:04; Admin Dose 40 MG; Start 01/26/17 at 06:00 Azithromycin 250 ml @ 250 mls/hr Q24H IVPB ; Start 01/26/17 at 09:00 Ceftriaxone Sodium (Rocephin) 50 ml @ 100 mls/hr Q24H IVPB ; Start 01/26/17 at 08:00 TAL MOSES Jan 26, 2017 09:08
--- NOTE | 2017-01-26 09:08 | PN ---
Date/Time of Note Date/Time of Note DATE: 01/26/17 TIME: 09:05 Assessment/Plan VTE Prophylaxis VTE Prophylaxis Intervention: SCD's Lines/Catheters [facility]from [facility] Peripheral IV Urinary Cath still in place: No Assessment/Plan Chief Complaint/Hosp Course Assessment and plan 1. COPD with exacerbation. Clinical Lab Scientist is following. Continue bronchodilators. Continue on O2 and titrate down as tolerated. Slowly improving 2. Sepsis and pneumonia. Patient does have chest radiograph consistent with pneumonia. Continue antibiotics. Plan for follow-up radiograph of the chest 3. Reported history of myocardial infarction. Beta-ivana on hold for now due to wheezing. Echocardiogram pending. 4. Reported psychiatric disorder. Patient does report following up with outpatient mental clinic. Patient to be resumed on his home medications once obtained. Disposition plan: Slowly improving. 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 Continue with antibiotics and breathing treatments Discussed plan of care with Dr. Singh Problems: Subjective 24 Hr Interval Summary Free Text/Dictation Reports little better breathing today. Exam/Review of Systems Vital Signs Vitals Vital Signs Date Time Temp Pulse Resp B/P Pulse Ox O2 Delivery O2 Flow Rate FiO2 01/26/17 07:57 97.6 73 18 120/82 92 01/26/17 02:05 2.0 01/26/17 02:05 Nasal Cannula 01/25/17 09:13 21 Intake and Output 01/25/17 01/25/17 01/26/17 15:00 23:00 07:00 Intake Total 400 ml 1625 ml Balance 400 ml 1625 ml Exam Constitutional: alert, oriented Psych: nl mood/affect Head: normocephalic Neck: non-tender, supple Respiratory: wheezing Cardiovascular: other (Regular rate) Gastrointestinal: non-tender, soft Musculoskeletal: nl extremities to inspection, nl gait and stance Neurological: SAS DEVELOPER II-XII intact, nl mental status, nl speech Skin: nl turgor Results Result Diagram: 01/26/17 0444 01/26/17 0448 Results 24 hrs Laboratory Tests Test 01/25/17 09:20 01/26/17 04:44 01/26/17 04:48 White Blood Count 17.8 #H 7.7 # Red Blood Count 4.35 L 4.23 L Hemoglobin 13.9 L 13.1 L Hematocrit 39.3 L 39.4 L Mean Corpuscular Volume 90.3 93.1 Mean Corpuscular Hemoglobin 32.0 31.0 Mean Corpuscular Hemoglobin Concent 35.4 33.2 Red Cell Distribution Width 14.2 14.8 H Platelet Count 153 144 Mean Platelet Volume 11.2 H 11.6 H Neutrophils % 84.6 H 85.0 H Lymphocytes % 5.4 L 9.2 L Monocytes % 8.8 5.2 Eosinophils % 0.3 0.0 Basophils % 0.2 0.1 Nucleated Red Blood Cells % 0.0 0.0 Neutrophils # 15.1 H 6.5 Lymphocytes # 1.0 0.7 L Monocytes # 1.6 H 0.4 Eosinophils # 0.1 0.0 Basophils # 0.0 0.0 Nucleated Red Blood Cells # 0.0 0.0 Sodium Level 137 147 H Potassium Level 4.0 4.3 Chloride Level 98 108 # Carbon Dioxide Level 31 32 H Anion Gap 12 11 Blood Urea Nitrogen 14 14 Creatinine 0.63 0.59 L Glucose Level 96 153 Calcium Level 9.0 9.1 Total Bilirubin 0.9 0.1 L Direct Bilirubin 0.00 0.00 Indirect Bilirubin 0.9 0.1 Aspartate Amino Transf (AST/SGOT) 62 H 39 Alanine Aminotransferase (ALT/SGPT) 34 32 Alkaline Phosphatase 75 72 Troponin I 0.031 Total Protein 7.7 6.9 Albumin 3.9 3.4 Globulin 3.80 H 3.50 H Albumin/Globulin Ratio 1.02 0.97 Hemoglobin A1c 5.4 Phosphorus Level 3.1 Magnesium Level 2.1 Triglycerides Level 52 Cholesterol Level 124 LDL Cholesterol, Calculated 66 HDL Cholesterol 48 Cholesterol/HDL Ratio 2.5 Thyroid Stimulating Hormone (TSH) 0.222 L Free Thyroxine Index 3.05 Thyroxine (T4) 8.1 Triiodothyronine (T3) Uptake 37.6 Medications Medications Current Medications Ondansetron HCl (Zofran Inj) 4 mg Q6H PRN IV NAUSEA AND/OR VOMITING; Start 01/25/17 at 22:30 Acetaminophen (Tylenol Tab) 650 mg Q6H PRN PO PAIN LEVEL 1-3 OR FEVER; Start 01/25/17 at 22:30 Acetaminophen (Tylenol Supp) 650 mg Q6H PRN [place] PAIN LEVEL 1-3 OR FEVER; Start 01/25/17 at 22:30 Acetaminophen/ Hydrocodone Bitart ([place] (5/325)) 1 tab Q6H PRN PO MODERATE PAIN LEVEL 4-6 Last administered on 01/26/17 04:53; Admin Dose 1 TAB; Start at 22:30 Acetaminophen/ Hydrocodone Bitart ([place] (5/325)) 2 tab Q6H PRN PO SEVERE PAIN LEVEL 7-10; Start 01/25/17 at 22:30 Morphine Sulfate (morphine) 2 mg Q4H PRN IV SEVERE PAIN LEVEL 7-10; Start 01/25 at 22:30 Docusate Sodium (Colace) 100 mg Q12H PRN PO CONSTIPATION; Start 01/25/17 at 22: 30 Magnesium Hydroxide (Milk Of Mag) 30 ml DAILY PRN PO CONSTIPATION; Start at 22:30 Bisacodyl (Dulcolax Supp) 10 mg DAILY PRN [place] CONSTIPATION; Start 01/25/17 at 22 :30 Pantoprazole 40 mg 40 mg DAILY@06 IV Last administered on 01/26/17 05:04; Admin Dose 40 MG; Start 01/26/17 at 06:00 Azithromycin 250 ml @ 250 mls/hr Q24H IVPB ; Start 01/26/17 at 09:00 Ceftriaxone Sodium (Rocephin) 50 ml @ 100 mls/hr Q24H IVPB ; Start 01/26/17 at 08:00 TAL MOSES Jan 26, 2017 09:08
[2017-01-26] MEDS: CEFTRIAXONE 2 GM/50 ML (PMX) 50 ML IVPB SCH (09:11)
[2017-01-26] MEDS: AZITHROMYCIN 500MG/NS (PMX) 250 ML IVPB SCH (09:50)
--- NOTE | 2017-01-26 10:57 | RADRPT ---
Echocardiogram Report Patient Name: KHOA KWONG Gender: Male Date: 1955 Study Date: 26-Jan-2017 Ad Setter: Adenike Marte [facility] Location: [facility] Ref. Physician: TAL MOSES Quality: Technically Difficult Study Procedures: Transthoracic echocardiogram with complete 2D, M-Mode, and doppler examination. Indications: Congestive Heart Failure. Dyspnea. 2D/M Mode Doppler Measurement Value Normal Ranges Measurement Value Normal Ranges LVIDd 2D 3.6 3.5 - 5.6 cm AV Peak Sach[place] 1.6 m/sec LVIDs 2D 2.1 2.1 - 4.1 cm AV Peak PG 9.7 mmHg LVPWd 2D 0.9 0.6 - 1.1 cm LVOT Peak Sachin 1.1 m/sec IVSd 2D 1.1 0.6 - 1.1 cm LVOT Peak PG 4.5 mmHg AoR Diam 2D 3.3 2.0 - 3.7 cm MV E Peak Sachin 0.8 m/sec EDV 2D 54.7 cm3 MV A Peak Sachin 0.9 m/sec ESV 2D 9.2 cm3 MV E/A 0.9 LA Dimen 2D 3.0 2.3 - 4.0 cm MV Decel Time 204 msec MV Decel [place] 4 MV E/A 0.9 Findings Left Ventricle: Lower limits of normal systolic function. Normal left ventricular cavity size. Normal left ventricular wall thickness. Ejection fraction is visually estimated at 50 %. Tissue Doppler/Mitral Doppler indices are consistent with impaired relaxation (Stage I diastolic dysfunction). Right Ventricle: Normal right ventricular size. Normal right ventricular systolic function. Left Atrium: The left atrium is normal in size. Right Atrium: The right atrium is normal in size. Mitral Valve: Mitral valve leaflets appear mildly thickened. Mild mitral annular calcification. Trace mitral regurgitation. Aortic Valve: No significant aortic stenosis or insufficiency. Aortic cusps appear mildly calcified. Tricuspid Valve: Normal appearance of the tricuspid valve. Unable to obtain RVSP due to minimal presence of tricuspid regurgitation. Pulmonic Valve: Pulmonic valve not well visualized. Pericardium: Normal pericardium with no significant pericardial effusion. Aorta: Normal aortic root. IVC: Dilated IVC with respiratory collapse consistent with elevated right atrial pressure. Conclusions 1.Lower limits of normal systolic function. Normal left ventricular cavity size. Normal left ventricular wall thickness. Ejection fraction is visually estimated at 50 %. Tissue Doppler/Mitral Doppler indices are consistent with impaired relaxation (Stage I diastolic dysfunction). 2.Mitral valve leaflets appear mildly thickened. Mild mitral annular calcification. Trace mitral regurgitation. 3.No significant aortic stenosis or insufficiency. Aortic cusps appear mildly calcified. 4.Normal appearance of the tricuspid valve. Unable to obtain RVSP due to minimal presence of tricuspid regurgitation. 5.suboptimal study. Electronically Signed By: Saturnino Chi 26-Jan-2017 10:56:54 -0800 Patient Name: KHOA KWONG Study Date: 26-Jan-[id number]
--- NOTE | 2017-01-26 10:57 | RADRPT ---
Echocardiogram Report Patient Name: KHOA KWONG Gender: Male Date: 1955 Study Date: 26-Jan-2017 Health And Safety Representative: Adenike Marte [facility] Location: [facility] Ref. Physician: TAL MOSES Quality: Technically Difficult Study Procedures: Transthoracic echocardiogram with complete 2D, M-Mode, and doppler examination. Indications: Congestive Heart Failure. Dyspnea. 2D/M Mode Doppler Measurement Value Normal Ranges Measurement Value Normal Ranges LVIDd 2D 3.6 3.5 - 5.6 cm AV Peak Sach[place] 1.6 m/sec LVIDs 2D 2.1 2.1 - 4.1 cm AV Peak PG 9.7 mmHg LVPWd 2D 0.9 0.6 - 1.1 cm LVOT Peak [place] 1.1 m/sec IVSd 2D 1.1 0.6 - 1.1 cm LVOT Peak PG 4.5 mmHg AoR Diam 2D 3.3 2.0 - 3.7 cm MV E Peak [place] 0.8 m/sec EDV 2D 54.7 cm3 MV A Peak [place] 0.9 m/sec ESV 2D 9.2 cm3 MV E/A 0.9 LA Dimen 2D 3.0 2.3 - 4.0 cm MV Decel Time 204 msec MV Decel [place] 4 MV E/A 0.9 Findings Left Ventricle: Lower limits of normal systolic function. Normal left ventricular cavity size. Normal left ventricular wall thickness. Ejection fraction is visually estimated at 50 %. Tissue Doppler/Mitral Doppler indices are consistent with impaired relaxation (Stage I diastolic dysfunction). Right Ventricle: Normal right ventricular size. Normal right ventricular systolic function. Left Atrium: The left atrium is normal in size. Right Atrium: The right atrium is normal in size. Mitral Valve: Mitral valve leaflets appear mildly thickened. Mild mitral annular calcification. Trace mitral regurgitation. Aortic Valve: No significant aortic stenosis or insufficiency. Aortic cusps appear mildly calcified. Tricuspid Valve: Normal appearance of the tricuspid valve. Unable to obtain RVSP due to minimal presence of tricuspid regurgitation. Pulmonic Valve: Pulmonic valve not well visualized. Pericardium: Normal pericardium with no significant pericardial effusion. Aorta: Normal aortic root. IVC: Dilated IVC with respiratory collapse consistent with elevated right atrial pressure. Conclusions 1.Lower limits of normal systolic function. Normal left ventricular cavity size. Normal left ventricular wall thickness. Ejection fraction is visually estimated at 50 %. Tissue Doppler/Mitral Doppler indices are consistent with impaired relaxation (Stage I diastolic dysfunction). 2.Mitral valve leaflets appear mildly thickened. Mild mitral annular calcification. Trace mitral regurgitation. 3.No significant aortic stenosis or insufficiency. Aortic cusps appear mildly calcified. 4.Normal appearance of the tricuspid valve. Unable to obtain RVSP due to minimal presence of tricuspid regurgitation. 5.suboptimal study. Electronically Signed By: Saturnino Chi 26-Jan-2017 10:56:54 -0800 Patient Name: KHOA KWONG Study Date: 26-Jan-[id number]
--- NOTE | 2017-01-26 10:57 | RADRPT ---
Echocardiogram Report Patient Name: KHOA KWONG Gender: Male Date: 1955 Study Date: 26-Jan-2017 Copy Worker: Adenike Marte [facility] Location: [facility] Ref. Physician: TAL MOSES Quality: Technically Difficult Study Procedures: Transthoracic echocardiogram with complete 2D, M-Mode, and doppler examination. Indications: Congestive Heart Failure. Dyspnea. 2D/M Mode Doppler Measurement Value Normal Ranges Measurement Value Normal Ranges LVIDd 2D 3.6 3.5 - 5.6 cm AV Peak Sach[place] 1.6 m/sec LVIDs 2D 2.1 2.1 - 4.1 cm AV Peak PG 9.7 mmHg LVPWd 2D 0.9 0.6 - 1.1 cm LVOT Peak Sach[place] 1.1 m/sec IVSd 2D 1.1 0.6 - 1.1 cm LVOT Peak PG 4.5 mmHg AoR Diam 2D 3.3 2.0 - 3.7 cm MV E Peak Sach[place] 0.8 m/sec EDV 2D 54.7 cm3 MV A Peak [place] 0.9 m/sec ESV 2D 9.2 cm3 MV E/A 0.9 LA Dimen 2D 3.0 2.3 - 4.0 cm MV Decel Time 204 msec MV Decel [place] 4 MV E/A 0.9 Findings Left Ventricle: Lower limits of normal systolic function. Normal left ventricular cavity size. Normal left ventricular wall thickness. Ejection fraction is visually estimated at 50 %. Tissue Doppler/Mitral Doppler indices are consistent with impaired relaxation (Stage I diastolic dysfunction). Right Ventricle: Normal right ventricular size. Normal right ventricular systolic function. Left Atrium: The left atrium is normal in size. Right Atrium: The right atrium is normal in size. Mitral Valve: Mitral valve leaflets appear mildly thickened. Mild mitral annular calcification. Trace mitral regurgitation. Aortic Valve: No significant aortic stenosis or insufficiency. Aortic cusps appear mildly calcified. Tricuspid Valve: Normal appearance of the tricuspid valve. Unable to obtain RVSP due to minimal presence of tricuspid regurgitation. Pulmonic Valve: Pulmonic valve not well visualized. Pericardium: Normal pericardium with no significant pericardial effusion. Aorta: Normal aortic root. IVC: Dilated IVC with respiratory collapse consistent with elevated right atrial pressure. Conclusions 1.Lower limits of normal systolic function. Normal left ventricular cavity size. Normal left ventricular wall thickness. Ejection fraction is visually estimated at 50 %. Tissue Doppler/Mitral Doppler indices are consistent with impaired relaxation (Stage I diastolic dysfunction). 2.Mitral valve leaflets appear mildly thickened. Mild mitral annular calcification. Trace mitral regurgitation. 3.No significant aortic stenosis or insufficiency. Aortic cusps appear mildly calcified. 4.Normal appearance of the tricuspid valve. Unable to obtain RVSP due to minimal presence of tricuspid regurgitation. 5.suboptimal study. Electronically Signed By: Saturnino Chi 26-Jan-2017 10:56:54 -0800 Patient Name: KHOA KWONG Study Date: 26-Jan-[id number]
--- NOTE | 2017-01-26 11:27 | CONS ---
Date/Time of Note Date/Time of Note DATE: 01/26/17 TIME: 11:26 Consult Date/Type/Reason Admit Date/Time Jan 25, 2017 at 12:36 Initial Consult Date Type of Consultation: Pulmonary Subjective Feels better today less shortness of breath. Objective Vital Signs Date Time Temp Pulse Resp B/P Pulse Ox O2 Delivery O2 Flow Rate FiO2 01/26/17 11:05 2.0 01/26/17 10:59 93 Room Air 01/26/17 08:55 82 28 28 01/26/17 07:57 97.6 120/82 Intake and Output 01/25/17 01/25/17 01/26/17 15:00 23:00 07:00 Intake Total 400 ml 1625 ml Balance 400 ml 1625 ml Exam PHYSICAL EXAMINATION: GENERAL: Thin gentleman, awake, alert, oriented, talking in full and complete sentences. VITAL SIGNS: As above. NECK: Supple. No JVD or lymphadenopathy. CARDIAC: S1, S2, no added sounds or murmurs. CHEST: Diminished air entry bilaterally. ABDOMEN: Soft, nontender. No guarding or rebound. EXTREMITIES: No cyanosis, clubbing, or edema. NEUROLOGIC: Grossly intact. No focal deficits. Results/Medications Result Diagram: 01/26/174 01/26/17 [address] chest IMPRESSION: 1. Elevation of left hemidiaphragm with atelectasis versus airspace disease in the posterior lower segments of the left lower lobe, and differential considerations include pneumonia. 2. Mild atelectasis at the right posterior costophrenic angle. 3. Bronchiolitis in the posterior left upper lobe. 4. Atelectasis versus early airspace disease in the lingula and anterior right middle lobe. 5. Anterior mediastinal mild bilateral paratracheal adenopathy, otherwise nonspecific. Laboratory Tests Test 01/26/17 04:44 01/26/17 04:48 White Blood Count 7.7 # Red Blood Count 4.23 L Hemoglobin 13.1 L Hematocrit 39.4 L Mean Corpuscular Volume 93.1 Mean Corpuscular Hemoglobin 31.0 Mean Corpuscular Hemoglobin Concent 33.2 Red Cell Distribution Width 14.8 H Platelet Count 144 Mean Platelet Volume 11.6 H Neutrophils % 85.0 H Lymphocytes % 9.2 L Monocytes % 5.2 Eosinophils % 0.0 Basophils % 0.1 Nucleated Red Blood Cells % 0.0 Neutrophils # 6.5 Lymphocytes # 0.7 L Monocytes # 0.4 Eosinophils # 0.0 Basophils # 0.0 Nucleated Red Blood Cells # 0.0 Hemoglobin A1c 5.4 Sodium Level 147 H Potassium Level 4.3 Chloride Level 108 # Carbon Dioxide Level 32 H Anion Gap 11 Blood Urea Nitrogen 14 Creatinine 0.59 L Glucose Level 153 Calcium Level 9.1 Phosphorus Level 3.1 Magnesium Level 2.1 Total Bilirubin 0.1 L Direct Bilirubin 0.00 Indirect Bilirubin 0.1 Aspartate Amino Transf (AST/SGOT) 39 Alanine Aminotransferase (ALT/SGPT) 32 Alkaline Phosphatase 72 Total Protein 6.9 Albumin 3.4 Globulin 3.50 H Albumin/Globulin Ratio 0.97 Triglycerides Level 52 Cholesterol Level 124 LDL Cholesterol, Calculated 66 HDL Cholesterol 48 Cholesterol/HDL Ratio 2.5 Thyroid Stimulating Hormone (TSH) 0.222 L Free Thyroxine Index 3.05 Thyroxine (T4) 8.1 Triiodothyronine (T3) Uptake 37.6 Medications Current Medications Ondansetron HCl (Zofran Inj) 4 mg Q6H PRN IV NAUSEA AND/OR VOMITING; Start 01/25/17 at 22:30 Acetaminophen (Tylenol Tab) 650 mg Q6H PRN PO PAIN LEVEL 1-3 OR FEVER; Start 01/25/17 at 22:30 Acetaminophen (Tylenol Supp) 650 mg Q6H PRN [place] PAIN LEVEL 1-3 OR FEVER; Start 01/25/17 at 22:30 Acetaminophen/ Hydrocodone Bitart ([place] (5/325)) 1 tab Q6H PRN PO MODERATE PAIN LEVEL 4-6 Last administered on 01/26/17t 04:53; Admin Dose 1 TAB; Start at 22:30 Acetaminophen/ Hydrocodone Bitart ([place] (5/325)) 2 tab Q6H PRN PO SEVERE PAIN LEVEL 7-10; Start 01/25/17 at 22:30 Morphine Sulfate (morphine) 2 mg Q4H PRN IV SEVERE PAIN LEVEL 7-10; Start 01/25 at 22:30 Docusate Sodium (Colace) 100 mg Q12H PRN PO CONSTIPATION; Start 01/25/17 at 22: 30 Magnesium Hydroxide (Milk Of Mag) 30 ml DAILY PRN PO CONSTIPATION; Start at 22:30 Bisacodyl (Dulcolax Supp) 10 mg DAILY PRN [place] CONSTIPATION; Start 01/25/17 at 22 :30 Pantoprazole 40 mg 40 mg DAILY@06 IV Last administered on 01/26/17 05:04; Admin Dose 40 MG; Start 01/26/17 at 06:00 Azithromycin 250 ml @ 250 mls/hr Q24H IVPB Last administered on 01/26/17 09: 50; Admin Dose 250 MLS/HR; Start 01/26/17 at 09:00 Ceftriaxone Sodium (Rocephin) 50 ml @ 100 mls/hr Q24H IVPB Last administered on 01/26/17 09:11; Admin Dose 100 MLS/HR; Start 01/26/17 at 08:00 Nicotine (Nicoderm 14 Mg/ 24hr) 1 patch DAILY TRANSDERM ; Start 01/26/17 at 11: 30; Status UNV Assessment/Plan Chief Complaint/Hosp Course IMPRESSION AND PLAN: 1. Likely community-acquired pneumonia. 2. Probable chronic obstructive pulmonary disease with acute exacerbation. 3. Consent for possible underlying lung mass given extensive tobacco history. Recommendations 1. Bronchodilators. 2. Antibiotics. 3. Supplemental O2. 4. CT chest, noncontrast. Findings noted. 5. DVT and GI prophylaxis. Problems: DENISA ARMANDO [facility], [facility] Jan 26, 2017 11:27
--- NOTE | 2017-01-26 11:27 | CONS ---
Date/Time of Note Date/Time of Note DATE: 01/26/17 TIME: 11:26 Consult Date/Type/Reason Admit Date/Time Jan 25, 2017 at 12:36 Initial Consult Date Type of Consultation: Pulmonary Subjective Feels better today less shortness of breath. Objective Vital Signs Date Time Temp Pulse Resp B/P Pulse Ox O2 Delivery O2 Flow Rate FiO2 01/26/17 11:05 2.0 01/26/17 10:59 93 Room Air 01/26/17 08:55 82 28 28 01/26/17 07:57 97.6 120/82 Intake and Output 01/25/17 01/25/17 01/26/17 15:00 23:00 07:00 Intake Total 400 ml 1625 ml Balance 400 ml 1625 ml Exam PHYSICAL EXAMINATION: GENERAL: Thin gentleman, awake, alert, oriented, talking in full and complete sentences. VITAL SIGNS: As above. NECK: Supple. No JVD or lymphadenopathy. CARDIAC: S1, S2, no added sounds or murmurs. CHEST: Diminished air entry bilaterally. ABDOMEN: Soft, nontender. No guarding or rebound. EXTREMITIES: No cyanosis, clubbing, or edema. NEUROLOGIC: Grossly intact. No focal deficits. Results/Medications Result Diagram: 01/26/174 01/26/17 [address] chest IMPRESSION: 1. Elevation of left hemidiaphragm with atelectasis versus airspace disease in the posterior lower segments of the left lower lobe, and differential considerations include pneumonia. 2. Mild atelectasis at the right posterior costophrenic angle. 3. Bronchiolitis in the posterior left upper lobe. 4. Atelectasis versus early airspace disease in the lingula and anterior right middle lobe. 5. Anterior mediastinal mild bilateral paratracheal adenopathy, otherwise nonspecific. Laboratory Tests Test 01/26/17 04:44 01/26/17 04:48 White Blood Count 7.7 # Red Blood Count 4.23 L Hemoglobin 13.1 L Hematocrit 39.4 L Mean Corpuscular Volume 93.1 Mean Corpuscular Hemoglobin 31.0 Mean Corpuscular Hemoglobin Concent 33.2 Red Cell Distribution Width 14.8 H Platelet Count 144 Mean Platelet Volume 11.6 H Neutrophils % 85.0 H Lymphocytes % 9.2 L Monocytes % 5.2 Eosinophils % 0.0 Basophils % 0.1 Nucleated Red Blood Cells % 0.0 Neutrophils # 6.5 Lymphocytes # 0.7 L Monocytes # 0.4 Eosinophils # 0.0 Basophils # 0.0 Nucleated Red Blood Cells # 0.0 Hemoglobin A1c 5.4 Sodium Level 147 H Potassium Level 4.3 Chloride Level 108 # Carbon Dioxide Level 32 H Anion Gap 11 Blood Urea Nitrogen 14 Creatinine 0.59 L Glucose Level 153 Calcium Level 9.1 Phosphorus Level 3.1 Magnesium Level 2.1 Total Bilirubin 0.1 L Direct Bilirubin 0.00 Indirect Bilirubin 0.1 Aspartate Amino Transf (AST/SGOT) 39 Alanine Aminotransferase (ALT/SGPT) 32 Alkaline Phosphatase 72 Total Protein 6.9 Albumin 3.4 Globulin 3.50 H Albumin/Globulin Ratio 0.97 Triglycerides Level 52 Cholesterol Level 124 LDL Cholesterol, Calculated 66 HDL Cholesterol 48 Cholesterol/HDL Ratio 2.5 Thyroid Stimulating Hormone (TSH) 0.222 L Free Thyroxine Index 3.05 Thyroxine (T4) 8.1 Triiodothyronine (T3) Uptake 37.6 Medications Current Medications Ondansetron HCl (Zofran Inj) 4 mg Q6H PRN IV NAUSEA AND/OR VOMITING; Start 01/25/17 at 22:30 Acetaminophen (Tylenol Tab) 650 mg Q6H PRN PO PAIN LEVEL 1-3 OR FEVER; Start 01/25/17 at 22:30 Acetaminophen (Tylenol Supp) 650 mg Q6H PRN [place] PAIN LEVEL 1-3 OR FEVER; Start 01/25/17 at 22:30 Acetaminophen/ Hydrocodone Bitart ([place] (5/325)) 1 tab Q6H PRN PO MODERATE PAIN LEVEL 4-6 Last administered on 01/26/17t 04:53; Admin Dose 1 TAB; Start at 22:30 Acetaminophen/ Hydrocodone Bitart ([place] (5/325)) 2 tab Q6H PRN PO SEVERE PAIN LEVEL 7-10; Start 01/25/17 at 22:30 Morphine Sulfate (morphine) 2 mg Q4H PRN IV SEVERE PAIN LEVEL 7-10; Start 01/25 at 22:30 Docusate Sodium (Colace) 100 mg Q12H PRN PO CONSTIPATION; Start 01/25/17 at 22: 30 Magnesium Hydroxide (Milk Of Mag) 30 ml DAILY PRN PO CONSTIPATION; Start at 22:30 Bisacodyl (Dulcolax Supp) 10 mg DAILY PRN [place] CONSTIPATION; Start 01/25/17 at 22 :30 Pantoprazole 40 mg 40 mg DAILY@06 IV Last administered on 01/26/17 05:04; Admin Dose 40 MG; Start 01/26/17 at 06:00 Azithromycin 250 ml @ 250 mls/hr Q24H IVPB Last administered on 01/26/17 09: 50; Admin Dose 250 MLS/HR; Start 01/26/17 at 09:00 Ceftriaxone Sodium (Rocephin) 50 ml @ 100 mls/hr Q24H IVPB Last administered on 01/26/17 09:11; Admin Dose 100 MLS/HR; Start 01/26/17 at 08:00 Nicotine (Nicoderm 14 Mg/ 24hr) 1 patch DAILY TRANSDERM ; Start 01/26/17 at 11: 30; Status UNV Assessment/Plan Chief Complaint/Hosp Course IMPRESSION AND PLAN: 1. Likely community-acquired pneumonia. 2. Probable chronic obstructive pulmonary disease with acute exacerbation. 3. Consent for possible underlying lung mass given extensive tobacco history. Recommendations 1. Bronchodilators. 2. Antibiotics. 3. Supplemental O2. 4. CT chest, noncontrast. Findings noted. 5. DVT and GI prophylaxis. Problems: DENISA ARMANDO MD, [facility] Jan 26, 2017 11:27
--- NOTE | 2017-01-26 11:27 | CONS ---
Date/Time of Note Date/Time of Note DATE: 01/26/17 TIME: 11:26 Consult Date/Type/Reason Admit Date/Time Jan 25, 2017 at 12:36 Initial Consult Date Type of Consultation: Pulmonary Subjective Feels better today less shortness of breath. Objective Vital Signs Date Time Temp Pulse Resp B/P Pulse Ox O2 Delivery O2 Flow Rate FiO2 01/26/17 11:05 2.0 01/26/17 10:59 93 Room Air 01/26/17 08:55 82 28 28 01/26/17 07:57 97.6 120/82 Intake and Output 01/25/17 01/25/17 01/26/17 15:00 23:00 07:00 Intake Total 400 ml 1625 ml Balance 400 ml 1625 ml Exam PHYSICAL EXAMINATION: GENERAL: Thin gentleman, awake, alert, oriented, talking in full and complete sentences. VITAL SIGNS: As above. NECK: Supple. No JVD or lymphadenopathy. CARDIAC: S1, S2, no added sounds or murmurs. CHEST: Diminished air entry bilaterally. ABDOMEN: Soft, nontender. No guarding or rebound. EXTREMITIES: No cyanosis, clubbing, or edema. NEUROLOGIC: Grossly intact. No focal deficits. Results/Medications Result Diagram: 01/26/174 01/26/[address] chest IMPRESSION: 1. Elevation of left hemidiaphragm with atelectasis versus airspace disease in the posterior lower segments of the left lower lobe, and differential considerations include pneumonia. 2. Mild atelectasis at the right posterior costophrenic angle. 3. Bronchiolitis in the posterior left upper lobe. 4. Atelectasis versus early airspace disease in the lingula and anterior right middle lobe. 5. Anterior mediastinal mild bilateral paratracheal adenopathy, otherwise nonspecific. Laboratory Tests Test 01/26/17 04:44 01/26/17 04:48 White Blood Count 7.7 # Red Blood Count 4.23 L Hemoglobin 13.1 L Hematocrit 39.4 L Mean Corpuscular Volume 93.1 Mean Corpuscular Hemoglobin 31.0 Mean Corpuscular Hemoglobin Concent 33.2 Red Cell Distribution Width 14.8 H Platelet Count 144 Mean Platelet Volume 11.6 H Neutrophils % 85.0 H Lymphocytes % 9.2 L Monocytes % 5.2 Eosinophils % 0.0 Basophils % 0.1 Nucleated Red Blood Cells % 0.0 Neutrophils # 6.5 Lymphocytes # 0.7 L Monocytes # 0.4 Eosinophils # 0.0 Basophils # 0.0 Nucleated Red Blood Cells # 0.0 Hemoglobin A1c 5.4 Sodium Level 147 H Potassium Level 4.3 Chloride Level 108 # Carbon Dioxide Level 32 H Anion Gap 11 Blood Urea Nitrogen 14 Creatinine 0.59 L Glucose Level 153 Calcium Level 9.1 Phosphorus Level 3.1 Magnesium Level 2.1 Total Bilirubin 0.1 L Direct Bilirubin 0.00 Indirect Bilirubin 0.1 Aspartate Amino Transf (AST/SGOT) 39 Alanine Aminotransferase (ALT/SGPT) 32 Alkaline Phosphatase 72 Total Protein 6.9 Albumin 3.4 Globulin 3.50 H Albumin/Globulin Ratio 0.97 Triglycerides Level 52 Cholesterol Level 124 LDL Cholesterol, Calculated 66 HDL Cholesterol 48 Cholesterol/HDL Ratio 2.5 Thyroid Stimulating Hormone (TSH) 0.222 L Free Thyroxine Index 3.05 Thyroxine (T4) 8.1 Triiodothyronine (T3) Uptake 37.6 Medications Current Medications Ondansetron HCl (Zofran Inj) 4 mg Q6H PRN IV NAUSEA AND/OR VOMITING; Start 01/25/17 at 22:30 Acetaminophen (Tylenol Tab) 650 mg Q6H PRN PO PAIN LEVEL 1-3 OR FEVER; Start 01/25/17 at 22:30 Acetaminophen (Tylenol Supp) 650 mg Q6H PRN [place] PAIN LEVEL 1-3 OR FEVER; Start 01/25/17 at 22:30 Acetaminophen/ Hydrocodone Bitart ([place] (5/325)) 1 tab Q6H PRN PO MODERATE PAIN LEVEL 4-6 Last administered on 01/26/17t 04:53; Admin Dose 1 TAB; Start at 22:30 Acetaminophen/ Hydrocodone Bitart ([place] (5/325)) 2 tab Q6H PRN PO SEVERE PAIN LEVEL 7-10; Start 01/25/17 at 22:30 Morphine Sulfate (morphine) 2 mg Q4H PRN IV SEVERE PAIN LEVEL 7-10; Start 01/25 at 22:30 Docusate Sodium (Colace) 100 mg Q12H PRN PO CONSTIPATION; Start 01/25/17 at 22: 30 Magnesium Hydroxide (Milk Of Mag) 30 ml DAILY PRN PO CONSTIPATION; Start at 22:30 Bisacodyl (Dulcolax Supp) 10 mg DAILY PRN [place] CONSTIPATION; Start 01/25/17 at 22 :30 Pantoprazole 40 mg 40 mg DAILY@06 IV Last administered on 01/26/17 05:04; Admin Dose 40 MG; Start 01/26/17 at 06:00 Azithromycin 250 ml @ 250 mls/hr Q24H IVPB Last administered on 01/26/17 09: 50; Admin Dose 250 MLS/HR; Start 01/26/17 at 09:00 Ceftriaxone Sodium (Rocephin) 50 ml @ 100 mls/hr Q24H IVPB Last administered on 01/26/17 09:11; Admin Dose 100 MLS/HR; Start 01/26/17 at 08:00 Nicotine (Nicoderm 14 Mg/ 24hr) 1 patch DAILY TRANSDERM ; Start 01/26/17 at 11: 30; Status UNV Assessment/Plan Chief Complaint/Hosp Course IMPRESSION AND PLAN: 1. Likely community-acquired pneumonia. 2. Probable chronic obstructive pulmonary disease with acute exacerbation. 3. Consent for possible underlying lung mass given extensive tobacco history. Recommendations 1. Bronchodilators. 2. Antibiotics. 3. Supplemental O2. 4. CT chest, noncontrast. Findings noted. 5. DVT and GI prophylaxis. Problems: DENISA ARMANDO MD, [facility] Jan 26, 2017 11:27
[2017-01-26] MEDS: NICOTINE (14 MG/24 HR) PATCH TRANSDERM SCH (11:55)
[2017-01-26 14:17] VITALS: BP 118/72; RESP 20
[2017-01-26 21:10] VITALS: BP 132/85; RESP 16
[2017-01-27] MEDS: ALBUTEROL/IPRATROPIUM (NEB) 3 ML AMP HHN SCH ×3 (02:00→14:00)
[2017-01-27 02:09] VITALS: BP 130/83; RESP 18
[2017-01-27] MEDS ORDERED: PANTOPRAZOLE (EC) 40 MG TAB PO SCH (06:00)
[2017-01-27 07:54] VITALS: BP 132/87; RESP 24
[2017-01-27] MEDS: CEFTRIAXONE 2 GM/50 ML (PMX) 50 ML IVPB SCH (08:30)
[2017-01-27] MEDS: NICOTINE (14 MG/24 HR) PATCH TRANSDERM SCH (08:35)
[2017-01-27] MEDS: AZITHROMYCIN 500MG/NS (PMX) 250 ML IVPB SCH (09:27)
--- NOTE | 2017-01-27 09:33 | PN ---
Date/Time of Note Date/Time of Note DATE: 01/27/17 TIME: 09:31 Assessment/Plan VTE Prophylaxis VTE Prophylaxis Intervention: SCD's Lines/Catheters IV [facility] [place] Urinary Cath still in place: No Assessment/Plan Chief Complaint/Hosp Course Assessment and plan 1. COPD with exacerbation. [employer]iffs is following. Continue bronchodilators. Continue on O2 and titrate down as tolerated. Improving 2. Sepsis and pneumonia. Continue antibiotics. X-ray pending 3. Reported history of myocardial infarction. EF 50% per echocardiogram with stage I diastolic dysfunction. Continue on low-dose beta-ivana 4. Reported psychiatric disorder. Patient does report following up with outpatient mental clinic. Patient to be resumed on his home medications once obtained. Disposition plan: Follow-up on x-ray. Appears to be improving. Titrate off O2 as tolerated. Discharge when medically stable and cleared by consultants Discussed plan of care with Dr. Singh Problems: Subjective 24 Hr Interval Summary Free Text/Dictation Still has notable dyspnea on exertion. Better today however Exam/Review of Systems Vital Signs Vitals Vital Signs Date Time Temp Pulse Resp B/P Pulse Ox O2 Delivery O2 Flow Rate FiO2 01/27/17 07:54 98.5 65 24 132/87 92 01/27/17 07:45 2.0 01/27/17 07:45 Nasal Cannula 01/26/17 14:30 28 Intake and Output 01/26/17 01/26/17 01/27/17 15:00 23:00 07:00 Intake Total 300 ml 1380 ml 500 ml Balance 300 ml 1380 ml 500 ml Exam Constitutional: alert, oriented Psych: nl mood/affect Head: normocephalic Neck: non-tender, supple Respiratory: Very minimal wheezing Cardiovascular: other (Regular rate) Gastrointestinal: non-tender, soft Musculoskeletal: nl extremities to inspection, nl gait and stance Neurological: [employer] II-XII intact, nl mental status, nl speech Skin: nl turgor Results Result Diagram: 01/27/17 0501 01/27/17 0501 Results 24 hrs Laboratory Tests Test 01/27/17 05:01 White Blood Count 10.5 # Red Blood Count 3.79 L Hemoglobin 11.7 L Hematocrit 35.5 L Mean Corpuscular Volume 93.7 Mean Corpuscular Hemoglobin 30.9 Mean Corpuscular Hemoglobin Concent 33.0 Red Cell Distribution Width 14.9 H Platelet Count 165 Mean Platelet Volume 11.8 H Neutrophils % 68.1 Lymphocytes % 21.4 Monocytes % 8.8 Eosinophils % 0.4 Basophils % 0.3 Nucleated Red Blood Cells % 0.0 Neutrophils # 7.2 Lymphocytes # 2.3 Monocytes # 0.9 Eosinophils # 0.0 Basophils # 0.0 Nucleated Red Blood Cells # 0.0 Sodium Level 146 H Potassium Level 3.8 Chloride Level 110 Carbon Dioxide Level 33 H Anion Gap 7 L Blood Urea Nitrogen 18 Creatinine 0.70 Glucose Level 99 # Calcium Level 8.7 Medications Medications Current Medications Ondansetron HCl (Zofran Inj) 4 mg Q6H PRN IV NAUSEA AND/OR VOMITING; Start 01/25/17 at 22:30 Acetaminophen (Tylenol Tab) 650 mg Q6H PRN PO PAIN LEVEL 1-3 OR FEVER; Start 01/25/17 at 22:30 Acetaminophen (Tylenol Supp) 650 mg Q6H PRN [place] PAIN LEVEL 1-3 OR FEVER; Start 01/25/17 at 22:30 Acetaminophen/ Hydrocodone Bitart ([place] (5/325)) 1 tab Q6H PRN PO MODERATE PAIN LEVEL 4-6 Last administered on 01/26/17 20:30; Admin Dose 1 TAB; Start at 22:30 Acetaminophen/ Hydrocodone Bitart ([place] (5/325)) 2 tab Q6H PRN PO SEVERE PAIN LEVEL 7-10; Start 01/25/17 at 22:30 Morphine Sulfate (morphine) 2 mg Q4H PRN IV SEVERE PAIN LEVEL 7-10; Start 01/25 at 22:30 Docusate Sodium (Colace) 100 mg Q12H PRN PO CONSTIPATION; Start 01/25/17 at 22: 30 Magnesium Hydroxide (Milk Of Mag) 30 ml DAILY PRN PO CONSTIPATION; Start at 22:30 Bisacodyl 10 mg 10 mg DAILY PRN [place] CONSTIPATION; Start 01/25/17 at 22:30 Azithromycin 250 ml @ 250 mls/hr Q24H IVPB Last administered on 01/27/17 09: 27; Admin Dose 250 MLS/HR; Start 01/26/17 at 09:00 Ceftriaxone Sodium (Rocephin) 50 ml @ 100 mls/hr Q24H IVPB Last administered on 01/27/17 08:30; Admin Dose 100 MLS/HR; Start 01/26/17 at 08:00 Nicotine (Nicoderm 14 Mg/ 24hr) 1 patch DAILY TRANSDERM Last administered on 08:35; Admin Dose 1 PATCH; Start 01/26/17 at 11:30 Pantoprazole (Protonix Tab) 40 mg DAILY@06 PO Last administered on 01/27/17 05 :18; Admin Dose 40 MG; Start 01/27/17 at 06:00 TAL MOSES Jan 27, 2017 09:33
--- NOTE | 2017-01-27 09:33 | PN ---
Date/Time of Note Date/Time of Note DATE: 01/27/17 TIME: 09:31 Assessment/Plan VTE Prophylaxis VTE Prophylaxis Intervention: SCD's Lines/Catheters IV Catheter Type (from [facility]): Saline Lock Urinary Cath still in place: No Assessment/Plan Chief Complaint/Hosp Course Assessment and plan 1. COPD with exacerbation. Telecommunication Lines Repairer is following. Continue bronchodilators. Continue on O2 and titrate down as tolerated. Improving 2. Sepsis and pneumonia. Continue antibiotics. X-ray pending 3. Reported history of myocardial infarction. EF 50% per echocardiogram with stage I diastolic dysfunction. Continue on low-dose beta-ivana 4. Reported psychiatric disorder. Patient does report following up with outpatient mental clinic. Patient to be resumed on his home medications once obtained. Disposition plan: Follow-up on x-ray. Appears to be improving. Titrate off O2 as tolerated. Discharge when medically stable and cleared by consultants Discussed plan of care with Dr. Singh Problems: Subjective 24 Hr Interval Summary Free Text/Dictation Still has notable dyspnea on exertion. Better today however Exam/Review of Systems Vital Signs Vitals Vital Signs Date Time Temp Pulse Resp B/P Pulse Ox O2 Delivery O2 Flow Rate FiO2 01/27/17 07:54 98.5 65 24 132/87 92 01/27/17 07:45 2.0 01/27/17 07:45 Nasal Cannula 01/26/17 14:30 28 Intake and Output 01/26/17 01/26/17 01/27/17 15:00 23:00 07:00 Intake Total 300 ml 1380 ml 500 ml Balance 300 ml 1380 ml 500 ml Exam Constitutional: alert, oriented Psych: nl mood/affect Head: normocephalic Neck: non-tender, supple Respiratory: Very minimal wheezing Cardiovascular: other (Regular rate) Gastrointestinal: non-tender, soft Musculoskeletal: nl extremities to inspection, nl gait and stance Neurological: LICENSED NUCLEAR CONTROL ROOM OPERATOR II-XII intact, nl mental status, nl speech Skin: nl turgor Results Result Diagram: 01/27/17 0501 01/27/17 0501 Results 24 hrs Laboratory Tests Test 01/27/17 05:01 White Blood Count 10.5 # Red Blood Count 3.79 L Hemoglobin 11.7 L Hematocrit 35.5 L Mean Corpuscular Volume 93.7 Mean Corpuscular Hemoglobin 30.9 Mean Corpuscular Hemoglobin Concent 33.0 Red Cell Distribution Width 14.9 H Platelet Count 165 Mean Platelet Volume 11.8 H Neutrophils % 68.1 Lymphocytes % 21.4 Monocytes % 8.8 Eosinophils % 0.4 Basophils % 0.3 Nucleated Red Blood Cells % 0.0 Neutrophils # 7.2 Lymphocytes # 2.3 Monocytes # 0.9 Eosinophils # 0.0 Basophils # 0.0 Nucleated Red Blood Cells # 0.0 Sodium Level 146 H Potassium Level 3.8 Chloride Level 110 Carbon Dioxide Level 33 H Anion Gap 7 L Blood Urea Nitrogen 18 Creatinine 0.70 Glucose Level 99 # Calcium Level 8.7 Medications Medications Current Medications Ondansetron HCl (Zofran Inj) 4 mg Q6H PRN IV NAUSEA AND/OR VOMITING; Start 01/25/17 at 22:30 Acetaminophen (Tylenol Tab) 650 mg Q6H PRN PO PAIN LEVEL 1-3 OR FEVER; Start 01/25/17 at 22:30 Acetaminophen (Tylenol Supp) 650 mg Q6H PRN [place] PAIN LEVEL 1-3 OR FEVER; Start 01/25/17 at 22:30 Acetaminophen/ Hydrocodone Bitart ([place] (5/325)) 1 tab Q6H PRN PO MODERATE PAIN LEVEL 4-6 Last administered on 01/26/17 20:30; Admin Dose 1 TAB; Start at 22:30 Acetaminophen/ Hydrocodone Bitart ([place] (5/325)) 2 tab Q6H PRN PO SEVERE PAIN LEVEL 7-10; Start 01/25/17 at 22:30 Morphine Sulfate (morphine) 2 mg Q4H PRN IV SEVERE PAIN LEVEL 7-10; Start 01/25 at 22:30 Docusate Sodium (Colace) 100 mg Q12H PRN PO CONSTIPATION; Start 01/25/17 at 22: 30 Magnesium Hydroxide (Milk Of Mag) 30 ml DAILY PRN PO CONSTIPATION; Start at 22:30 Bisacodyl 10 mg 10 mg DAILY PRN [place] CONSTIPATION; Start 01/25/17 at 22:30 Azithromycin 250 ml @ 250 mls/hr Q24H IVPB Last administered on 01/27/17 09: 27; Admin Dose 250 MLS/HR; Start 01/26/17 at 09:00 Ceftriaxone Sodium (Rocephin) 50 ml @ 100 mls/hr Q24H IVPB Last administered on 01/27/17 08:30; Admin Dose 100 MLS/HR; Start 01/26/17 at 08:00 Nicotine (Nicoderm 14 Mg/ 24hr) 1 patch DAILY TRANSDERM Last administered on 08:35; Admin Dose 1 PATCH; Start 01/26/17 at 11:30 Pantoprazole (Protonix Tab) 40 mg DAILY@06 PO Last administered on 01/27/17 05 :18; Admin Dose 40 MG; Start 01/27/17 at 06:00 TAL MOSES Jan 27, 2017 09:33
--- NOTE | 2017-01-27 09:33 | PN ---
Date/Time of Note Date/Time of Note DATE: 01/27/17 TIME: 09:31 Assessment/Plan VTE Prophylaxis VTE Prophylaxis Intervention: SCD's Lines/Catheters IV [facility] Type (from [facility] Saline Lock Urinary Cath still in place: No Assessment/Plan Chief Complaint/Hosp Course Assessment and plan 1. COPD with exacerbation. 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 Continue bronchodilators. Continue on O2 and titrate down as tolerated. Improving 2. Sepsis and pneumonia. Continue antibiotics. X-ray pending 3. Reported history of myocardial infarction. EF 50% per echocardiogram with stage I diastolic dysfunction. Continue on low-dose beta-ivana 4. Reported psychiatric disorder. Patient does report following up with outpatient mental clinic. Patient to be resumed on his home medications once obtained. Disposition plan: Follow-up on x-ray. Appears to be improving. Titrate off O2 as tolerated. Discharge when medically stable and cleared by consultants Discussed plan of care with Dr. Singh Problems: Subjective 24 Hr Interval Summary Free Text/Dictation Still has notable dyspnea on exertion. Better today however Exam/Review of Systems Vital Signs Vitals Vital Signs Date Time Temp Pulse Resp B/P Pulse Ox O2 Delivery O2 Flow Rate FiO2 01/27/17 07:54 98.5 65 24 132/87 92 01/27/17 07:45 2.0 01/27/17 07:45 Nasal Cannula 01/26/17 14:30 28 Intake and Output 01/26/17 01/26/17 01/27/17 15:00 23:00 07:00 Intake Total 300 ml 1380 ml 500 ml Balance 300 ml 1380 ml 500 ml Exam Constitutional: alert, oriented Psych: nl mood/affect Head: normocephalic Neck: non-tender, supple Respiratory: Very minimal wheezing Cardiovascular: other (Regular rate) Gastrointestinal: non-tender, soft Musculoskeletal: nl extremities to inspection, nl gait and stance Neurological: HAND BOOTMAKER II-XII intact, nl mental status, nl speech Skin: nl turgor Results Result Diagram: 01/27/17 0501 01/27/17 0501 Results 24 hrs Laboratory Tests Test 01/27/17 05:01 White Blood Count 10.5 # Red Blood Count 3.79 L Hemoglobin 11.7 L Hematocrit 35.5 L Mean Corpuscular Volume 93.7 Mean Corpuscular Hemoglobin 30.9 Mean Corpuscular Hemoglobin Concent 33.0 Red Cell Distribution Width 14.9 H Platelet Count 165 Mean Platelet Volume 11.8 H Neutrophils % 68.1 Lymphocytes % 21.4 Monocytes % 8.8 Eosinophils % 0.4 Basophils % 0.3 Nucleated Red Blood Cells % 0.0 Neutrophils # 7.2 Lymphocytes # 2.3 Monocytes # 0.9 Eosinophils # 0.0 Basophils # 0.0 Nucleated Red Blood Cells # 0.0 Sodium Level 146 H Potassium Level 3.8 Chloride Level 110 Carbon Dioxide Level 33 H Anion Gap 7 L Blood Urea Nitrogen 18 Creatinine 0.70 Glucose Level 99 # Calcium Level 8.7 Medications Medications Current Medications Ondansetron HCl (Zofran Inj) 4 mg Q6H PRN IV NAUSEA AND/OR VOMITING; Start 01/25/17 at 22:30 Acetaminophen (Tylenol Tab) 650 mg Q6H PRN PO PAIN LEVEL 1-3 OR FEVER; Start 01/25/17 at 22:30 Acetaminophen (Tylenol Supp) 650 mg Q6H PRN [place] PAIN LEVEL 1-3 OR FEVER; Start 01/25/17 at 22:30 Acetaminophen/ Hydrocodone Bitart ([place] (5/325)) 1 tab Q6H PRN PO MODERATE PAIN LEVEL 4-6 Last administered on 01/26/17 20:30; Admin Dose 1 TAB; Start at 22:30 Acetaminophen/ Hydrocodone Bitart ([place] (5/325)) 2 tab Q6H PRN PO SEVERE PAIN LEVEL 7-10; Start 01/25/17 at 22:30 Morphine Sulfate (morphine) 2 mg Q4H PRN IV SEVERE PAIN LEVEL 7-10; Start 01/25 at 22:30 Docusate Sodium (Colace) 100 mg Q12H PRN PO CONSTIPATION; Start 01/25/17 at 22: 30 Magnesium Hydroxide (Milk Of Mag) 30 ml DAILY PRN PO CONSTIPATION; Start at 22:30 Bisacodyl 10 mg 10 mg DAILY PRN OR CONSTIPATION; Start 01/25/17 at 22:30 Azithromycin 250 ml @ 250 mls/hr Q24H IVPB Last administered on 01/27/17 09: 27; Admin Dose 250 MLS/HR; Start 01/26/17 at 09:00 Ceftriaxone Sodium (Rocephin) 50 ml @ 100 mls/hr Q24H IVPB Last administered on 01/27/17 08:30; Admin Dose 100 MLS/HR; Start 01/26/17 at 08:00 Nicotine (Nicoderm 14 Mg/ 24hr) 1 patch DAILY TRANSDERM Last administered on 08:35; Admin Dose 1 PATCH; Start 01/26/17 at 11:30 Pantoprazole (Protonix Tab) 40 mg DAILY@06 PO Last administered on 01/27/17 05 :18; Admin Dose 40 MG; Start 01/27/17 at 06:00 TAL MOSES Jan 27, 2017 09:33
[2017-01-27 14:00] VITALS: BP 130/88; RESP 22
--- NOTE | 2017-01-27 15:23 | CONS ---
Date/Time of Note Date/Time of Note DATE: 01/27/17 TIME: 15:19 Consult Date/Type/Reason Admit Date/Time Jan 25, 2017 at 12:36 Type of Consultation: Pulmonary Subjective Patient comfortable this morning. Mild exertional dyspnea but adequate saturations when ambulating on room air. Objective Vital Signs Date Time Temp Pulse Resp B/P Pulse Ox O2 Delivery O2 Flow Rate FiO2 01/27/17 14:00 98.4 68 22 130/88 95 01/27/17 07:45 2.0 01/27/17 07:45 Nasal Cannula 01/26/17 14:30 28 Intake and Output 01/26/17 01/26/17 01/27/17 15:00 23:00 07:00 Intake Total 300 ml 1380 ml 500 ml Balance 300 ml 1380 ml 500 ml Exam PHYSICAL EXAMINATION: GENERAL: Thin gentleman, awake, alert, oriented, talking in full and complete sentences. VITAL SIGNS: As above. NECK: Supple. No JVD or lymphadenopathy. CARDIAC: S1, S2, no added sounds or murmurs. CHEST: Diminished air entry bilaterally. ABDOMEN: Soft, nontender. No guarding or rebound. EXTREMITIES: No cyanosis, clubbing, or edema. NEUROLOGIC: Grossly intact. No focal deficits. Results/Medications Result Diagram: 01/27/17 0501 01/27/17 0501 Results 24 hrs Laboratory Tests Test 01/27/17 05:01 White Blood Count 10.5 # Red Blood Count 3.79 L Hemoglobin 11.7 L Hematocrit 35.5 L Mean Corpuscular Volume 93.7 Mean Corpuscular Hemoglobin 30.9 Mean Corpuscular Hemoglobin Concent 33.0 Red Cell Distribution Width 14.9 H Platelet Count 165 Mean Platelet Volume 11.8 H Neutrophils % 68.1 Lymphocytes % 21.4 Monocytes % 8.8 Eosinophils % 0.4 Basophils % 0.3 Nucleated Red Blood Cells % 0.0 Neutrophils # 7.2 Lymphocytes # 2.3 Monocytes # 0.9 Eosinophils # 0.0 Basophils # 0.0 Nucleated Red Blood Cells # 0.0 Sodium Level 146 H Potassium Level 3.8 Chloride Level 110 Carbon Dioxide Level 33 H Anion Gap 7 L Blood Urea Nitrogen 18 Creatinine 0.70 Glucose Level 99 # Calcium Level 8.7 Medications Current Medications Ondansetron HCl (Zofran Inj) 4 mg Q6H PRN IV NAUSEA AND/OR VOMITING; Start 01/25/17 at 22:30 Acetaminophen (Tylenol Tab) 650 mg Q6H PRN PO PAIN LEVEL 1-3 OR FEVER; Start 01/25/17 at 22:30 Acetaminophen (Tylenol Supp) 650 mg Q6H PRN [place] PAIN LEVEL 1-3 OR FEVER; Start 01/25/17 at 22:30 Acetaminophen/ Hydrocodone Bitart ([place] (5/325)) 1 tab Q6H PRN PO MODERATE PAIN LEVEL 4-6 Last administered on 01/26/17 20:30; Admin Dose 1 TAB; Start at 22:30 Acetaminophen/ Hydrocodone Bitart ([place] (5/325)) 2 tab Q6H PRN PO SEVERE PAIN LEVEL 7-10; Start 01/25/17 at 22:30 Morphine Sulfate (morphine) 2 mg Q4H PRN IV SEVERE PAIN LEVEL 7-10; Start 01/25 at 22:30 Docusate Sodium (Colace) 100 mg Q12H PRN PO CONSTIPATION; Start 01/25/17 at 22: 30 Magnesium Hydroxide (Milk Of Mag) 30 ml DAILY PRN PO CONSTIPATION; Start at 22:30 Bisacodyl 10 mg 10 mg DAILY PRN [place] CONSTIPATION; Start 01/25/17 at 22:30 Azithromycin 250 ml @ 250 mls/hr Q24H IVPB Last administered on 01/27/17 09: 27; Admin Dose 250 MLS/HR; Start 01/26/17 at 09:00 Ceftriaxone Sodium (Rocephin) 50 ml @ 100 mls/hr Q24H IVPB Last administered on 01/27/17 08:30; Admin Dose 100 MLS/HR; Start 01/26/17 at 08:00 Nicotine (Nicoderm 14 Mg/ 24hr) 1 patch DAILY TRANSDERM Last administered on 08:35; Admin Dose 1 PATCH; Start 01/26/17 at 11:30 Pantoprazole (Protonix Tab) 40 mg DAILY@06 PO Last administered on 01/27/17 05 :18; Admin Dose 40 MG; Start 01/27/17 at 06:00 Carvedilol (Coreg) 3.125 mg BID PO Last administered on 01/27/17 10:58; Admin Dose 3.125 MG; Start 01/27/17 at 10:00 Assessment/Plan Chief Complaint/Hosp Course IMPRESSION AND PLAN: 1. Likely community-acquired pneumonia. 2. Probable chronic obstructive pulmonary disease with acute exacerbation. Recommendations 1. Bronchodilators. 2. Antibiotics. 3. Supplemental O2. 4. CT chest, noncontrast. Findings noted. 5. DVT and GI prophylaxis. demian bryan from pul standpoint, Problems: DENISA ARMANDO MD, [facility] Jan 27, 2017 15:23
--- NOTE | 2017-01-27 15:23 | CONS ---
Date/Time of Note Date/Time of Note DATE: 01/27/17 TIME: 15:19 Consult Date/Type/Reason Admit Date/Time Jan 25, 2017 at 12:36 Type of Consultation: Pulmonary Subjective Patient comfortable this morning. Mild exertional dyspnea but adequate saturations when ambulating on room air. Objective Vital Signs Date Time Temp Pulse Resp B/P Pulse Ox O2 Delivery O2 Flow Rate FiO2 01/27/17 14:00 98.4 68 22 130/88 95 01/27/17 07:45 2.0 01/27/17 07:45 Nasal Cannula 01/26/17 14:30 28 Intake and Output 01/26/17 01/26/17 01/27/17 15:00 23:00 07:00 Intake Total 300 ml 1380 ml 500 ml Balance 300 ml 1380 ml 500 ml Exam PHYSICAL EXAMINATION: GENERAL: Thin gentleman, awake, alert, oriented, talking in full and complete sentences. VITAL SIGNS: As above. NECK: Supple. No JVD or lymphadenopathy. CARDIAC: S1, S2, no added sounds or murmurs. CHEST: Diminished air entry bilaterally. ABDOMEN: Soft, nontender. No guarding or rebound. EXTREMITIES: No cyanosis, clubbing, or edema. NEUROLOGIC: Grossly intact. No focal deficits. Results/Medications Result Diagram: 01/27/17 0501 01/27/17 0501 Results 24 hrs Laboratory Tests Test 01/27/17 05:01 White Blood Count 10.5 # Red Blood Count 3.79 L Hemoglobin 11.7 L Hematocrit 35.5 L Mean Corpuscular Volume 93.7 Mean Corpuscular Hemoglobin 30.9 Mean Corpuscular Hemoglobin Concent 33.0 Red Cell Distribution Width 14.9 H Platelet Count 165 Mean Platelet Volume 11.8 H Neutrophils % 68.1 Lymphocytes % 21.4 Monocytes % 8.8 Eosinophils % 0.4 Basophils % 0.3 Nucleated Red Blood Cells % 0.0 Neutrophils # 7.2 Lymphocytes # 2.3 Monocytes # 0.9 Eosinophils # 0.0 Basophils # 0.0 Nucleated Red Blood Cells # 0.0 Sodium Level 146 H Potassium Level 3.8 Chloride Level 110 Carbon Dioxide Level 33 H Anion Gap 7 L Blood Urea Nitrogen 18 Creatinine 0.70 Glucose Level 99 # Calcium Level 8.7 Medications Current Medications Ondansetron HCl (Zofran Inj) 4 mg Q6H PRN IV NAUSEA AND/OR VOMITING; Start 01/25/17 at 22:30 Acetaminophen (Tylenol Tab) 650 mg Q6H PRN PO PAIN LEVEL 1-3 OR FEVER; Start 01/25/17 at 22:30 Acetaminophen (Tylenol Supp) 650 mg Q6H PRN [place] PAIN LEVEL 1-3 OR FEVER; Start 01/25/17 at 22:30 Acetaminophen/ Hydrocodone Bitart ([place] (5/325)) 1 tab Q6H PRN PO MODERATE PAIN LEVEL 4-6 Last administered on 01/26/17 20:30; Admin Dose 1 TAB; Start at 22:30 Acetaminophen/ Hydrocodone Bitart ([place] (5/325)) 2 tab Q6H PRN PO SEVERE PAIN LEVEL 7-10; Start 01/25/17 at 22:30 Morphine Sulfate (morphine) 2 mg Q4H PRN IV SEVERE PAIN LEVEL 7-10; Start 01/25 at 22:30 Docusate Sodium (Colace) 100 mg Q12H PRN PO CONSTIPATION; Start 01/25/17 at 22: 30 Magnesium Hydroxide (Milk Of Mag) 30 ml DAILY PRN PO CONSTIPATION; Start at 22:30 Bisacodyl 10 mg 10 mg DAILY PRN [place] CONSTIPATION; Start 01/25/17 at 22:30 Azithromycin 250 ml @ 250 mls/hr Q24H IVPB Last administered on 01/27/17 09: 27; Admin Dose 250 MLS/HR; Start 01/26/17 at 09:00 Ceftriaxone Sodium (Rocephin) 50 ml @ 100 mls/hr Q24H IVPB Last administered on 01/27/17 08:30; Admin Dose 100 MLS/HR; Start 01/26/17 at 08:00 Nicotine (Nicoderm 14 Mg/ 24hr) 1 patch DAILY TRANSDERM Last administered on 08:35; Admin Dose 1 PATCH; Start 01/26/17 at 11:30 Pantoprazole (Protonix Tab) 40 mg DAILY@06 PO Last administered on 01/27/17 05 :18; Admin Dose 40 MG; Start 01/27/17 at 06:00 Carvedilol (Coreg) 3.125 mg BID PO Last administered on 01/27/17 10:58; Admin Dose 3.125 MG; Start 01/27/17 at 10:00 Assessment/Plan Chief Complaint/Hosp Course IMPRESSION AND PLAN: 1. Likely community-acquired pneumonia. 2. Probable chronic obstructive pulmonary disease with acute exacerbation. Recommendations 1. Bronchodilators. 2. Antibiotics. 3. Supplemental O2. 4. CT chest, noncontrast. Findings noted. 5. DVT and GI prophylaxis. demian bryan from pul standpoint, Problems: DENISA ARMANDO MD, [facility] Jan 27, 2017 15:23
--- NOTE | 2017-01-27 15:23 | CONS ---
Date/Time of Note Date/Time of Note DATE: 01/27/17 TIME: 15:19 Consult Date/Type/Reason Admit Date/Time Jan 25, 2017 at 12:36 Type of Consultation: Pulmonary Subjective Patient comfortable this morning. Mild exertional dyspnea but adequate saturations when ambulating on room air. Objective Vital Signs Date Time Temp Pulse Resp B/P Pulse Ox O2 Delivery O2 Flow Rate FiO2 01/27/17 14:00 98.4 68 22 130/88 95 01/27/17 07:45 2.0 01/27/17 07:45 Nasal Cannula 01/26/17 14:30 28 Intake and Output 01/26/17 01/26/17 01/27/17 15:00 23:00 07:00 Intake Total 300 ml 1380 ml 500 ml Balance 300 ml 1380 ml 500 ml Exam PHYSICAL EXAMINATION: GENERAL: Thin gentleman, awake, alert, oriented, talking in full and complete sentences. VITAL SIGNS: As above. NECK: Supple. No JVD or lymphadenopathy. CARDIAC: S1, S2, no added sounds or murmurs. CHEST: Diminished air entry bilaterally. ABDOMEN: Soft, nontender. No guarding or rebound. EXTREMITIES: No cyanosis, clubbing, or edema. NEUROLOGIC: Grossly intact. No focal deficits. Results/Medications Result Diagram: 01/27/17 0501 01/27/17 0501 Results 24 hrs Laboratory Tests Test 01/27/17 05:01 White Blood Count 10.5 # Red Blood Count 3.79 L Hemoglobin 11.7 L Hematocrit 35.5 L Mean Corpuscular Volume 93.7 Mean Corpuscular Hemoglobin 30.9 Mean Corpuscular Hemoglobin Concent 33.0 Red Cell Distribution Width 14.9 H Platelet Count 165 Mean Platelet Volume 11.8 H Neutrophils % 68.1 Lymphocytes % 21.4 Monocytes % 8.8 Eosinophils % 0.4 Basophils % 0.3 Nucleated Red Blood Cells % 0.0 Neutrophils # 7.2 Lymphocytes # 2.3 Monocytes # 0.9 Eosinophils # 0.0 Basophils # 0.0 Nucleated Red Blood Cells # 0.0 Sodium Level 146 H Potassium Level 3.8 Chloride Level 110 Carbon Dioxide Level 33 H Anion Gap 7 L Blood Urea Nitrogen 18 Creatinine 0.70 Glucose Level 99 # Calcium Level 8.7 Medications Current Medications Ondansetron HCl (Zofran Inj) 4 mg Q6H PRN IV NAUSEA AND/OR VOMITING; Start 01/25/17 at 22:30 Acetaminophen (Tylenol Tab) 650 mg Q6H PRN PO PAIN LEVEL 1-3 OR FEVER; Start 01/25/17 at 22:30 Acetaminophen (Tylenol Supp) 650 mg Q6H PRN [place] PAIN LEVEL 1-3 OR FEVER; Start 01/25/17 at 22:30 Acetaminophen/ Hydrocodone Bitart ([place] (5/325)) 1 tab Q6H PRN PO MODERATE PAIN LEVEL 4-6 Last administered on 01/26/17 20:30; Admin Dose 1 TAB; Start at 22:30 Acetaminophen/ Hydrocodone Bitart ([place] (5/325)) 2 tab Q6H PRN PO SEVERE PAIN LEVEL 7-10; Start 01/25/17 at 22:30 Morphine Sulfate (morphine) 2 mg Q4H PRN IV SEVERE PAIN LEVEL 7-10; Start 01/25 at 22:30 Docusate Sodium (Colace) 100 mg Q12H PRN PO CONSTIPATION; Start 01/25/17 at 22: 30 Magnesium Hydroxide (Milk Of Mag) 30 ml DAILY PRN PO CONSTIPATION; Start at 22:30 Bisacodyl 10 mg 10 mg DAILY PRN [place] CONSTIPATION; Start 01/25/17 at 22:30 Azithromycin 250 ml @ 250 mls/hr Q24H IVPB Last administered on 01/27/17 09: 27; Admin Dose 250 MLS/HR; Start 01/26/17 at 09:00 Ceftriaxone Sodium (Rocephin) 50 ml @ 100 mls/hr Q24H IVPB Last administered on 01/27/17 08:30; Admin Dose 100 MLS/HR; Start 01/26/17 at 08:00 Nicotine (Nicoderm 14 Mg/ 24hr) 1 patch DAILY TRANSDERM Last administered on 08:35; Admin Dose 1 PATCH; Start 01/26/17 at 11:30 Pantoprazole (Protonix Tab) 40 mg DAILY@06 PO Last administered on 01/27/17 05 :18; Admin Dose 40 MG; Start 01/27/17 at 06:00 Carvedilol (Coreg) 3.125 mg BID PO Last administered on 01/27/17 10:58; Admin Dose 3.125 MG; Start 01/27/17 at 10:00 Assessment/Plan Chief Complaint/Hosp Course IMPRESSION AND PLAN: 1. Likely community-acquired pneumonia. 2. Probable chronic obstructive pulmonary disease with acute exacerbation. Recommendations 1. Bronchodilators. 2. Antibiotics. 3. Supplemental O2. 4. CT chest, noncontrast. Findings noted. 5. DVT and GI prophylaxis. demian bryan from pul standpoint, Problems: DENISA ARMANDO MD, [facility] Jan 27, 2017 15:23
[2017-01-27] MEDS ORDERED: CARV3.1260 PO (15:36)
[2017-01-27] MEDS ORDERED: LEVO500T72 PO (15:36)
[2017-01-27] MEDS ORDERED: ALBU18HF INHALATION (15:36)
--- NOTE | 2017-01-27 15:39 | PDOCDIS ---
Discharge Instructions DIAGNOSIS Discharge Diagnosis 1. COPD with exacerbation. 2. Sepsis and pneumonia. 3. Reported history of myocardial infarction. EF 50% per echocardiogram with stage I diastolic dysfunction. 4. Reported psychiatric disorder. HOME CARE INSTRUCTIONS: Diet Instructions: Regular FOLLOW UP/APPOINTMENTS Follow-up Plan 1. Follow up with your primary care provider in one week TAL MOSES Jan 27, 2017 15:39
== END 2017-01-27 13:30 | disposition home or self-care (01) | DRG 871 ==
LOC: E/R 08:48 → MS3 12:36 → PP2 17:15
PROVIDERS: ADMIT Hospitalist; ATTEND Hospitalist
DX: A41.9 Sepsis, unspecified organism (principal); J18.9 Pneumonia, unspecified organism; J44.1 Chronic obstructive pulmonary disease with (acute) exacerbation; F17.210 Nicotine dependence, cigarettes, uncomplicated; F25.0 Schizoaffective disorder, bipolar type; I10 Essential (primary) hypertension; F12.90 Cannabis use, unspecified, uncomplicated; I25.2 Old myocardial infarction
CPT/HCPCS: 36415; 71010; 71250; 80048; 80053; 80061; 83036; 83735; 84100; 84436; 84443; 84479; 84484; 85025; 87040; 87070; 87081; 90686; 93005; 93306; 94640; 94644; 94664; 96374; 96375; C9113; J0456; J0696; J2930; J7030; J7040

== ENCOUNTER 2017-01-30 14:22 | Inpatient (IN) | payer MEDICAID ==
[~2017-01-30] VITALS: Ht 177.8 cm; Wt 75.0 kg
[~2017-01-30 14:22] MED LIST changes: +ALBU18HF INHALATION; +CARV3.1260 PO; +LEVO500T72 PO
[2017-01-30] MEDS ORDERED: METHYLPREDNISOLONE 125 MG INJ IV STA (14:46)
[2017-01-30] MEDS ORDERED: ALBUTEROL 0.5% (NEB) 2.5 MG/0.5 ML AMP INH STA (14:46)
[2017-01-30] MEDS ORDERED: NITROGLYCERIN (SL) 0.4 MG TAB SL ONE (15:00)
[2017-01-30] MEDS ORDERED: FUROSEMIDE 40 MG INJ IV ONE (15:00)
[2017-01-30] MEDS ORDERED: ASPIRIN 81 MG TAB PO ONE (15:00)
[2017-01-30 15:21] VITALS: TEMP 98.4
[2017-01-30 15:24] LABS: ABNORMAL IP MESSAGE 1; HEMATOCRIT 39.5 % (42.0-52.0); HEMOGLOBIN 13.7 g/dl (14.0-18.0); MEAN CORPUSCULAR HEMOGLOBIN 31.4 pg (29.0-33.0); MEAN CORPUSCULAR HGB CONC 34.7 g/dl (32.0-37.0); MEAN CORPUSCULAR VOLUME 90.6 fl (82.0-101.0); MEAN PLATELET VOLUME 10.8 fl (7.4-10.4); PLATELET COUNT 310 10^3/UL (140-415); POSITIVE DIFF @See below; RED BLOOD COUNT 4.36 10^6/ul (4.70-6.10); RED CELL DISTRIBUTION WIDTH 14.6 % (11.5-14.5); WHITE BLOOD COUNT 10.7 10^3/ul (4.8-10.8)
--- NOTE | 2017-01-30 15:36 | RADRPT ---
PROCEDURE: XR Chest. CLINICAL INDICATION: 62-year-old male with abdominal pain. TECHNIQUE: Single frontal view of the chest was obtained. COMPARISON: Chest x-ray 01/25/2017 09:[address] scan of the chest 01/25/2017. FINDINGS: The left diaphragm is elevated and this is believed secondary to a eventration in the dorsal dome of the left diaphragm. Monitoring electrodes project across the chest. Degenerative osteophytes are p resent in the thoracic spine. The heart is shifted slightly to the right. The cardiomediastinal madeline houette and hilar structures are otherwise normal. The pulmonary vasculature is normal. There is a left-sided aorta. The left pulmonary artery is prominent. There is compressive atelectasis in the li ngula and left lower lobe. The costophrenic angles are poorly visualized in this may be the result of atelectasis. IMPRESSION: 1. Persistent elevation of the left hemidiaphragm with compressive atelectasis in the lingula and le ft lower lobe. 2. Plate-like atelectasis in the medial aspect of the right lower lobe. 3. Spondylosis of the thoracic spine. 4. Old fracture deformity of the lateral left clavicle. RPTAT:AAJJ Physician Ming Date Time Electronically viewed and signed by Alex Medina Physician on 01/30/2017 15:35 RODDY/
--- NOTE | 2017-01-30 15:37 | ERD ---
ER Documentation Chief Complaint Chief Complaint Complains of SOB Hx of Bronchitis HPI 62-year-old man complains of shortness of breath 1 day, he states he was recently treated for pneumonia and finishes antibiotics yesterday. He states he does have a history of COPD as well as CHF. He states his lower extremities have become swollen over the last few days, but denies chest pain, no fevers or chills, no vomiting or diarrhea. ROS All systems reviewed and are negative except as per history of present illness. Medications Home Meds Active Scripts Albuterol Sulfate* (Ventolin HFA*) 18 Gm Hfa.aer.ad, 2 PUFF INHALATION Q4H, #1 INHALER Prov:TAL MOSES 01/27/17 Levofloxacin* (Levaquin*) 500 Mg Tablet, 500 MG PO DAILY, #7 TAB Prov:TAL MOSES 01/27/17 Carvedilol* (Carvedilol*) 3.125 Mg Tablet, 3.125 MG PO BID for 30 Days, #60 TAB Prov:TAL MOSES 01/27/17 Reported Medications Oxcarbazepine* (Trileptal*) 150 Mg Tablet, PO BID, TAB 06/14/14 Divalproex Sodium* (Depakote*) 125 Mg Tablet., PO QID, TAB 06/14/14 Allergies Allergies: Coded Allergies: No Known Allergy (Unverified , 01/30/17) PMhx/Soc Hypertension, COPD/asthma, CHF, previous [place], seizure disorder History of Surgery: Yes (HERNIA 09/2015) Anesthesia Reaction: No Hx Neurological Disorder: No Hx Respiratory Disorders: Yes (COPD, PNA, PLEURACY) Hx Cardiac Disorders: Yes (HTN, HX OF AZ) Hx Psychiatric Problems: Yes (BIPOLAR, PSYCOTIC TENDANCY) Hx Miscellaneous Medical Probl: No Hx Alcohol Use: No (12 YEARS SOBER) Hx Substance Use: Yes (HASNT USED IN 12 YEARS) Hx Tobacco Use: Yes (TRYING TO QUIT) FmHx Family History: No diabetes Physical Exam Vitals Vital Signs Date Time Temp Pulse Resp B/P Pulse Ox O2 Delivery O2 Flow Rate FiO2 01/30/17 15:21 98.4 104 22 120/92 98 High Flow 01/30/17 14:59 98 20 95 21 01/30/17 14:24 113 20 120/78 97 Physical Exam GENERAL: Well-developed, dehydrated, afebrile, dyspneic HEENT: Dry mucous membranes, pink conjunctiva, no cervical spine tenderness or step-off deformities, no goiter, no jaundice or icterus, extraocular movements intact without pain. No submandibular induration, and no pharyngeal erythema NEURO: Alert and oriented 3, cranial nerves II through XII intact bilaterally, pupils equal round reactive to light, no focal deficits or facial asymmetry, sensation intact distally Strength 5/5 in upper and lower extremities bilaterally CARDIAC: Tachycardic and regular, no murmurs rubs or gallops LUNGS: Wheezes and crackles bilaterally, no stridor ABDOMEN: Soft nontender, no guarding, no rigidity, no rebound, no psoas sign no obturator sign. Normoactive bowel sounds SKIN: Warm and dry to touch, no abrasions, contusions, or hematomas, no lacerations, no ecchymosis, no target lesions, and without ulcers EXTREMITIES: No clubbing cyanosis, 2+ pitting edema in the lower extremities bilaterally, calves are bilaterally symmetrical, no Homans sign, no popliteal cord sign. Distal pulses equal and bilateral PSYCH: Normal affect without agitation or irritability Result Diagram: 01/30/17 1500 01/30/17 1500 Results 24 hrs Laboratory Tests Test 01/30/17 15:00 White Blood Count 10.710^3/ul Red Blood Count 4.3610^6/ul Hemoglobin 13.7g/dl Hematocrit 39.5% Mean Corpuscular Volume 90.6fl Mean Corpuscular Hemoglobin 31.4pg Mean Corpuscular Hemoglobin Concent 34.7g/dl Red Cell Distribution Width 14.6% Platelet Count 40178^3/UL Mean Platelet Volume 10.8fl Neutrophils % % Segmented Neutrophils % (Manual) 54% Band Neutrophils % (Manual) 5% Lymphocytes % % Lymphocytes % (Manual) 22% Reactive Lymphocytes % (Manual) 2% Monocytes % % Monocytes % (Manual) 14% Eosinophils % % Eosinophils % (Manual) 1% Basophils % % Metamyelocytes % (manual) 1% Myelocytes % (Manual) 1% Nucleated Red Blood Cells % 0.0/100WBC Neutrophils # 10^3/ul Neutrophils # (Manual) 5.810^3/ul Band Neutrophils # 0.510^3/ul Absolute Lymphocytes (Manual) 2.310^3/ul Lymphocytes # 10^3/ul Reactive Lymphocytes # 0.210^3/ul Monocytes # 10^3/ul Absolute Monocytes (Manual) 1.410^3/ul Eosinophils # 10^3/ul Basophils # 10^3/ul Metamyelocytes # 0.110^3/ul Myelocytes # 0.110^3/ul Nucleated Red Blood Cells # 10^3/ul Platelet Estimate NORMAL Polychromasia 1+ Anisocytosis 1+ Sodium Level 142mmol/L Potassium Level 3.7mmol/L Chloride Level 101mmol/L Carbon Dioxide Level 28mmol/L Anion Gap 17 Blood Urea Nitrogen 17mg/dl Creatinine 0.75mg/dl Glucose Level 103mg/dl Calcium Level 9.0mg/dl Total Bilirubin 0.5mg/dl Direct Bilirubin 0.00mg/dl Indirect Bilirubin 0.5mg/dl Aspartate Amino Transf (AST/SGOT) 31IU/L Alanine Aminotransferase (ALT/SGPT) 29IU/L Alkaline Phosphatase 71IU/L Troponin I 0.041ng/ml B-Type Natriuretic Peptide 7020PG/ML Total Protein 7.7g/dl Albumin 3.9g/dl Globulin 3.80g/dl Albumin/Globulin Ratio 1.02 Lipase 69U/L Free Thyroxine 2.43ng/dl Current Medications Medications (Trade) Dose Ordered Sig/Jennifer Route PRN Reason Start Time Stop Time Status Last Admin Dose Admin Albuterol (Proventil 0.5% (Neb)) 10 mg ONCE STAT INH 01/30/17 14:46 01/30/17 14:49 DC 01/30/17 14:58 Methylprednisolone Sodium Succinate (Solu-Medrol) 125 mg ONCE STAT IV 01/30/17 14:46 01/30/17 14:49 DC 01/30/17 15:15 Aspirin (Aspirin) 324 mg ONCE ONCE PO 01/30/17 15:00 01/30/17 15:01 DC 01/30/17 15:16 Furosemide (Lasix) 60 mg ONCE ONCE IV 01/30/17 15:00 01/30/17 15:01 DC 01/30/17 15:15 Nitroglycerin (Nitroglycerin (Sl Tab) 0.4 Mg) 1 tab ONCE ONCE SL 01/30/17 15:00 01/30/17 15:01 DC 01/30/17 15:14 Procedures/MDM IV line was established patient was placed on cardiac monitor technician rhythm strip revealed a sinus tachycardia at 110 bpm with upright P and T waves. Patient was afebrile EKG performed, read by me revealed a sinus tachycardia at 102 bpm, normal axis, narrow QRS complex, no concerning ST elevations or depressions noted. One view chest x-ray performed, read by me there is atelectatic changes bilaterally and elevation of left hemidiaphragm, no acute infiltrate, no pneumothorax. I administered aspirin 324 mg p.o. for cardioprotective measures, furosemide 60 mg IV 1, nitroglycerin 0.4 mg sublingual, albuterol 10 mg via nebulizer, methylprednisolone 125 mg IV 1. CBC and electrolytes are normal, liver function tests were normal, troponin was negative. Critical Care: Time: 43 minutes, this was time separate from other billable procedures. Treatments/Evaluations: Close monitoring and treatment of unstable vital signs, cardiorespiratory, and neurologic status, while maintaining tight balance of fluid, respiratory, and cardiac interventions. Patient will be admitted to telemetry setting for continued medical management and cardiology consultation. Departure Diagnosis: Primary Impression: CHF (congestive heart failure) Congestive heart failure type: systolic Congestive heart failure chronicity: acute Qualified Code: I50.21 - Acute systolic congestive heart failure Additional Impressions: COPD (chronic obstructive pulmonary disease) COPD type: COPD with acute exacerbation Qualified Code: J44.1 - Chronic obstructive pulmonary disease with acute exacerbation Hypertension Hypertension type: essential hypertension Qualified Code: I10 - Essential hypertension Condition: Good ADRIANA COLON MD Jan 30, 2017 15:37
[2017-01-30 15:47] LABS: ALBUMIN 3.9 g/dl (3.3-4.9); ALBUMIN/GLOBULIN RATIO 1.02; BILIRUBIN,INDIRECT 0.5 mg/dl (0-1.1); BILIRUBIN,TOTAL 0.5 mg/dl (0.2-1.3); CREATININE 0.75 mg/dl (0.61-1.24); POTASSIUM 3.7 mmol/L (3.5-5.1); TOTAL PROTEIN 7.7 g/dl (6.1-8.1)
[2017-01-30 15:59] LABS: TROPONIN-I 0.041 ng/ml (0.00-0.12)
[2017-01-30 16:22] LABS: ANISOCYTOSIS 1+ (0-0); EOSINOPHILS % (M) 1 % (0-7); METAMYELOCYTES %M 1 % (0-0); MONOCYTES % (M) 14 % (0-11); MYELOCYTES % (M) 1 % (0-0); PLATELET ESTIMATE NORMAL; POLYCHROMASIA 1+ (0-0); REACTIVE LYMPHOCYTES% (M) 2 % (0-0)
[2017-01-30] MEDS ORDERED: NICOTINE (21 MG/24 HR) PATCH TRANSDERM ONE (17:30)
[2017-01-30] MEDS ORDERED: ACETAMINOPHEN 325 MG TAB PO PRN (18:00)
[2017-01-30] MEDS ORDERED: hydrALAzine 20 MG INJ IV PRN (18:00)
[2017-01-30] MEDS ORDERED: NA PHOSPHATE/BIPHOS 133 ML ENEMA PR PRN (18:00)
[2017-01-30] MEDS ORDERED: morphine 2 MG INJ IV PRN (18:00)
[2017-01-30] MEDS ORDERED: HYDROCODONE/APAP (5/325) TAB PO PRN (18:00)
[2017-01-30] MEDS ORDERED: LORAZEPAM 2 MG INJ IV PRN (18:00)
[2017-01-30] MEDS ORDERED: DOCUSATE SODIUM 100 MG CAP PO PRN (18:00)
[2017-01-30] MEDS ORDERED: ALBUTEROL/IPRATROPIUM (NEB) 3 ML AMP HHN PRN (18:00)
[2017-01-30] MEDS ORDERED: NITROGLYCERIN (SL) 0.4 MG TAB SL PRN (18:00)
[2017-01-30] MEDS ORDERED: ONDANSETRON 4 MG INJ IV PRN (18:00)
[2017-01-30] MEDS ORDERED: MAGNESIUM HYDROXIDE 30ML CUP PO PRN (18:00)
[2017-01-30] MEDS ORDERED: NACL 0.9% 3 ML SYG IV SCH (18:00)
[2017-01-30 18:47] VITALS: PULSE 102
[2017-01-30 19:07] VITALS: BP 110/82; PULSE 105; RESP 22; Ht 177.8 cm; Wt 75.0 kg
[2017-01-30 19:33] LABS: TROPONIN-I 0.039 ng/ml (0.00-0.12)
[2017-01-30] MEDS: FUROSEMIDE 40 MG INJ IV SCH (19:58)
[2017-01-30] MEDS ORDERED: LEVOFLOXACIN 750MG/D5W (PMX) 150 ML IVPB SCH (20:00)
[2017-01-30 20:05] VITALS: BP 104/77; RESP 18
[2017-01-30 20:07] VITALS: PULSE 100
[2017-01-30] MEDS: OXCARBAZEPINE 150 MG TAB PO SCH (21:06)
[2017-01-30] MEDS: DIVALPROEX (EC) 125 MG TAB PO SCH (21:06)
[2017-01-30] MEDS: HEPARIN 5,000 UNIT/0.5 ML VIAL SC SCH (21:08)
[2017-01-30] MEDS: ALBUTEROL/IPRATROPIUM (NEB) 3 ML AMP HHN SCH (21:17)
--- NOTE | 2017-01-30 21:38 | HP ---
DATE OF ADMISSION: 01/30/2017 CHIEF COMPLAINT: Shortness of breath. HISTORY OF PRESENT ILLNESS: A 62-year-old male with past medical history of bipolar disorder, COPD, pneumonia, prior heart attack, seizure disorder, essential hypertension, former alcohol use, current smoker, who says he has been having shortness of breath for the last 1 to 2 days. He also says he has had some issue after being discharged from the hospital recently 2 days ago finding a place to call home. His friend was supposed to let him live with him, but he was not able to find residence at his friend's place. In any event, he has noticed some more lower extremity swelling, increased shortness of breath symptoms, but no cough or chest pain. No fevers or chills. No diarrhea or constipation. No nausea or vomiting. No headaches or dizziness or loss of consciousness. PAST MEDICAL HISTORY: As stated above. ALLERGIES: NO KNOWN DRUG ALLERGIES. MEDICATIONS: Home medications, Levaquin 500 mg daily, Ventolin HFA 2 puffs inhaled every 4 hours, Coreg 3.125 mg b.i.d., Depakote 125 mg q.i.d. Trileptal 150 mg b.i.d. PAST SURGICAL HISTORY: Hernia repair. SOCIAL HISTORY: Half a pack smoker a day for the last 40 years. Former alcohol use, quit many years ago. Denies any IV drug abuse. PHYSICAL EXAMINATION: VITAL SIGNS: Today, T-max 98.4, pulse 98 to 113, respirations 20, blood pressure 120/78, sating at 95 to 97 percent on 2 L nasal cannula. GENERAL: Patient is lying in bed, answers question appropriately, no acute distress. HEENT: Pupils equal, round, react to light. Extraocular muscles intact. NECK: Supple. No thyromegaly. LUNGS: Positive mild wheezes heard bilateral bases and mild crackles bilaterally. No rhonchi. CARDIOVASCULAR: S1, S2 heard. No rubs, gallops. ABDOMEN: Soft, nontender, nondistended. Normal bowel sounds. There is no rebound or guarding. MUSCULOSKELETAL: Has 2 plus pitting edema bilateral lower extremities to the mid calves. NEUROLOGIC: No focal deficits. LABORATORY DATA: The comprehensive metabolic panel is normal, BNP is 7020, so it is elevated. CBC essentially normal. Chest x-ray shows persistent elevation of left hemidiaphragm with compressive atelectasis in the lingula and left lower lobe, light atelectasis in the medial aspect of the right lower lobe, spondylosis of the thoracic spine, old fracture deformity of the left lateral clavicle. ASSESSMENT AND PLAN: A 62-year-old male coming in with shortness of breath symptoms with a prior history of myocardial infarction, chronic obstructive pulmonary disease, recent pneumonia and questionable congestive heart failure. 1. Shortness of breath, again likely secondary combination of chronic obstructive pulmonary disease and congestive heart failure exacerbation. Will admit the patient, consider breathing treatments around the clock and IV steroids, low dose beta ivana for now, put him on IV Lasix as well, will diurese and keep head of bed greater than 30 degrees, check TSH, A1c, lipid panel, put him on broad spectrum antibiotics as well. 2. Bipolar disorder. Continue to monitor for now, he is on Ativan p.r.n. 3. History of seizure disorder. Continue Depakote and Trileptal. 4. History of prior pneumonia, see number 1. 5. History of prior myocardial infarction. Again, he is on Coreg, continue to monitor for now. 6. Deep vein thrombosis prophylaxis. Heparin subcu. Dictated By: Gómez Singh MD /danis/[email or web address] /Document#: [id number]
[2017-01-31] VITALS (12 sets, daily range): BP systolic 108–123; BP diastolic 73–80; PULSE 82–95; RESP 16–20
[2017-01-31] MEDS: ALBUTEROL/IPRATROPIUM (NEB) 3 ML AMP HHN SCH ×6 (01:07→20:09)
[2017-01-31 01:49] LABS: CK-MB 3.77 ng/ml (0.0-2.4); TROPONIN-I 0.039 ng/ml (0.00-0.12)
[2017-01-31] MEDS: FUROSEMIDE 40 MG INJ IV SCH ×2 (05:36→17:53)
[2017-01-31 06:32] LABS: ABNORMAL IP MESSAGE 1; BASOPHILS % 0.6 % (0.0-2.0); HEMATOCRIT 38.4 % (42.0-52.0); LYMPHOCYTES # 0.9 10^3/ul (0.8-2.9); LYMPHOCYTES % 17.7 % (15.0-51.0); MEAN CORPUSCULAR HEMOGLOBIN 30.4 pg (29.0-33.0); MEAN CORPUSCULAR HGB CONC 33.9 g/dl (32.0-37.0); MEAN CORPUSCULAR VOLUME 89.9 fl (82.0-101.0); MEAN PLATELET VOLUME 10.9 fl (7.4-10.4); MONOCYTE # 0.5 10^3/ul (0.3-0.9); MONOCYTES % 9.6 % (0.0-11.0); NEUTROPHIL # 3.6 10^3/ul (1.6-7.5); PLATELET COUNT 294 10^3/UL (140-415); POSITIVE DIFF @See below; RED BLOOD COUNT 4.27 10^6/ul (4.70-6.10); RED CELL DISTRIBUTION WIDTH 14.7 % (11.5-14.5); WHITE BLOOD COUNT 5.3 10^3/ul (4.8-10.8)
[2017-01-31 07:10] LABS: CALCIUM 8.9 mg/dl (8.4-10.2); CREATININE 0.85 mg/dl (0.61-1.24); MAGNESIUM 1.8 mg/dl (1.7-2.5); PHOSPHORUS 3.8 mg/dl (2.5-4.9); POTASSIUM 3.4 mmol/L (3.5-5.1)
[2017-01-31 07:47] LABS: CHOL/HDL RATIO 3.7 RATIO
[2017-01-31 07:53] LABS: THYROID STIMULATING HORMONE 0.27 MIU/L (0.465-4.680)
[2017-01-31] MEDS ORDERED: LEVOFLOXACIN 750MG/D5W (PMX) 150 ML IVPB SCH (09:00)
[2017-01-31] MEDS: OXCARBAZEPINE 150 MG TAB PO SCH ×2 (09:06→20:31)
[2017-01-31] MEDS: DIVALPROEX (EC) 125 MG TAB PO SCH ×4 (09:06→20:31)
[2017-01-31] MEDS: HEPARIN 5,000 UNIT/0.5 ML VIAL SC SCH ×2 (09:17→20:32)
[2017-01-31] MEDS ORDERED: POTASSIUM CHLORIDE (SR) 20 MEQ TAB PO STA (12:13)
--- NOTE | 2017-01-31 12:23 | PN ---
Date/Time of Note Date/Time of Note DATE: 01/31/17 TIME: 12:19 Assessment/Plan VTE Prophylaxis VTE Prophylaxis Intervention: heparin Lines/Catheters IV [facility] Urinary Cath still in place: No Assessment/Plan Chief Complaint/Hosp Course ASSESSMENT AND PLAN: 62-year-old male coming in with shortness of breath symptoms with a prior history of myocardial infarction, chronic obstructive pulmonary disease, recent pneumonia and questionable congestive heart failure. 1. Shortness of breath- again likely secondary combination of chronic obstructive pulmonary disease and congestive heart failure exacerbation, symptoms slowly improving - breathing treatments, and IV steroids, low dose beta ivana for now, IV Lasix as well, will diurese and keep head of bed greater than 30 degrees, -Follow-up TSH, A1c, lipid - broad spectrum antibiotics as well. 2. Bipolar disorder. Continue to monitor for now, he is on Ativan p.r.n. 3. History of seizure disorder. Continue Depakote and Trileptal. 4. History of prior pneumonia, see number 1. 5. History of prior myocardial infarction. Again, he is on Coreg, continue to monitor for now. 6. Deep vein thrombosis prophylaxis. Heparin subcu. Problems: Subjective 24 Hr Interval Summary Free Text/Dictation Patient has less shortness of breath now. No acute events overnight. Exam/Review of Systems Vital Signs Vitals Vital Signs Date Time Temp Pulse Resp B/P Pulse Ox O2 Delivery O2 Flow Rate FiO2 01/31/17 12:13 94 01/31/17 08:36 92 2.0 01/31/17 08:35 22 Nasal Cannula 01/31/17 07:56 98.0 110/74 01/30/17 14:59 21 Intake and Output 01/30/17 01/30/17 01/31/17 15:00 23:00 07:00 Intake Total 300 ml Output Total 800 ml Balance -500 ml Exam GENERAL: Patient is lying in bed, answers question appropriately, no acute distress. HEENT: Pupils equal, round, react to light. Extraocular muscles intact. NECK: Supple. No thyromegaly. LUNGS: Positive mild wheezes heard bilateral bases and mild crackles bilaterally. No rhonchi. CARDIOVASCULAR: S1, S2 heard. No rubs, gallops. ABDOMEN: Soft, nontender, nondistended. Normal bowel sounds. There is no rebound or guarding. MUSCULOSKELETAL: Has 2 plus pitting edema bilateral lower extremities to the mid calves. NEUROLOGIC: No focal deficits. Results Result Diagram: 01/31/1758 01/31/17 0558 Results 24 hrs Laboratory Tests Test 01/30/17 15:00 01/30/17 19:00 01/31/17 00:23 01/31/17 05:57 White Blood Count 10.7 Red Blood Count 4.36 L Hemoglobin 13.7 L Hematocrit 39.5 L Mean Corpuscular Volume 90.6 Mean Corpuscular Hemoglobin 31.4 Mean Corpuscular Hemoglobin Concent 34.7 Red Cell Distribution Width 14.6 H Platelet Count 310 # Mean Platelet Volume 10.8 H Neutrophils % Segmented Neutrophils % (Manual) 54 Band Neutrophils % (Manual) 5 H Lymphocytes % Lymphocytes % (Manual) 22 Reactive Lymphocytes % (Manual) 2 H Monocytes % Monocytes % (Manual) 14 H Eosinophils % Eosinophils % (Manual) 1 Basophils % Metamyelocytes % (manual) 1 H Myelocytes % (Manual) 1 H Nucleated Red Blood Cells % 0.0 Neutrophils # Neutrophils # (Manual) 5.8 Band Neutrophils # 0.5 Absolute Lymphocytes (Manual) 2.3 Lymphocytes # Reactive Lymphocytes # 0.2 H Monocytes # Absolute Monocytes (Manual) 1.4 H Eosinophils # Basophils # Metamyelocytes # 0.1 H Myelocytes # 0.1 H Nucleated Red Blood Cells # Platelet Estimate NORMAL Polychromasia 1+ Anisocytosis 1+ Sodium Level 142 Potassium Level 3.7 Chloride Level 101 Carbon Dioxide Level 28 Anion Gap 17 H Blood Urea Nitrogen 17 Creatinine 0.75 Glucose Level 103 Calcium Level 9.0 Total Bilirubin 0.5 Direct Bilirubin 0.00 Indirect Bilirubin 0.5 Aspartate Amino Transf (AST/SGOT) 31 Alanine Aminotransferase (ALT/SGPT) 29 Alkaline Phosphatase 71 Troponin I 0.041 0.039 0.039 B-Type Natriuretic Peptide 7020 H Total Protein 7.7 Albumin 3.9 Globulin 3.80 H Albumin/Globulin Ratio 1.02 Lipase 69 Free Thyroxine 2.43 Creatine Kinase 93 80 Creatine Kinase Index 4.3 4.7 Creatinine Kinase MB (Mass) 4.00 H 3.77 H Hemoglobin A1c 5.5 Test 01/31/17 05:58 White Blood Count 5.3 # Red Blood Count 4.27 L Hemoglobin 13.0 L Hematocrit 38.4 L Mean Corpuscular Volume 89.9 Mean Corpuscular Hemoglobin 30.4 Mean Corpuscular Hemoglobin Concent 33.9 Red Cell Distribution Width 14.7 H Platelet Count 294 Mean Platelet Volume 10.9 H Neutrophils % 67.0 Lymphocytes % 17.7 Monocytes % 9.6 Eosinophils % 0.0 Basophils % 0.6 Nucleated Red Blood Cells % 0.0 Neutrophils # 3.6 Lymphocytes # 0.9 Monocytes # 0.5 Eosinophils # 0.0 Basophils # 0.0 Nucleated Red Blood Cells # 0.0 Sodium Level 141 Potassium Level 3.4 L Chloride Level 101 Carbon Dioxide Level 31 Anion Gap 12 Blood Urea Nitrogen 24 H Creatinine 0.85 Glucose Level 199 Calcium Level 8.9 Phosphorus Level 3.8 Magnesium Level 1.8 Triglycerides Level 74 Cholesterol Level 135 LDL Cholesterol, Calculated 84 HDL Cholesterol 36 Cholesterol/HDL Ratio 3.7 Thyroid Stimulating Hormone (TSH) 0.270 L Medications Medications Current Medications Ondansetron HCl (Zofran Inj) 4 mg Q6H PRN IV NAUSEA AND/OR VOMITING; Start 02/05 at 18:00 Acetaminophen (Tylenol Tab) 650 mg Q6H PRN PO PAIN LEVEL 1-3 OR FEVER; Start 01/30/17 at 18:00 Acetaminophen/ Hydrocodone Bitart (Humble (5/325)) 1 tab Q6H PRN PO MODERATE PAIN LEVEL 4-6; Start 01/30/17 at 18:00 Morphine Sulfate (morphine) 2 mg Q4H PRN IV SEVERE PAIN LEVEL 7-10; Start 02/05 at 18:00 Docusate Sodium (Colace) 100 mg Q12H PRN PO CONSTIPATION; Start 01/30/17 at 18 :00 Magnesium Hydroxide (Milk Of Mag) 30 ml DAILY PRN PO CONSTIPATION; Start 01/30 at 18:00 Sodium Biphosphate/ Sodium Phosphate (Fleet Enema) 133 ml DAILY PRN [place] CONSTIPATION; Start 01/30/17 at 18:00 Heparin Sodium (Porcine) (Heparin (5000 Units/0.5 ml)) 5,000 unit Q12 SC Last administered on 01/31/17t 09:17; Admin Dose 5,000 UNIT; Start 01/30/17 at 21: 00 Lorazepam (Ativan) 0.5 mg Q6H PRN IV ANXIETY; Start 01/30/17 at 18:00 Hydralazine HCl (Apresoline) 10 mg Q6H PRN IV SBP GREATER THAN 180; Start 02/05 at 18:00 Clonidine (Catapres) 0.1 mg Q6H PRN PO SBP GREATER THAN 160; Start 01/30/17 at 18:00 Nitroglycerin (Nitroglycerin (Sl Tab) 0.4 Mg) 1 tab Q5M PRN SL ANGINA; Start 01/30/17 at 18:00 Carvedilol (Coreg) 3.125 mg BID PO Last administered on 01/31/17 09:06; Admin Dose 3.125 MG; Start 01/30/17 at 21:00 Oxcarbazepine (Trileptal) 150 mg BID PO Last administered on 01/31/17 09:06; Admin Dose 150 MG; Start 01/30/17 at 21:00 Divalproex Sodium 125 mg 125 mg QID PO Last administered on 01/31/17 09:06; Admin Dose 125 MG; Start 01/30/17 at 21:00 Levofloxacin/ Dextrose (Levaquin 750 Mg/ D5W 150 ml (Pmx)) 150 ml @ 100 mls/hr Q24H IVPB Last administered on 01/31/17 09:07; Admin Dose 100 MLS/HR; Start 01/31/17 at 09:00 Miscellaneous Information (Flu Vaccine Previously Dispensed) FLU VACCINE PREVIOU... NOTE PRN XX NOTE; Start 01/30/17 at 21:00 VENESSA LOMAS 12, 2017 12:23
[2017-01-31] MEDS: NICOTINE (21 MG/24 HR) PATCH TRANSDERM SCH (21:18)
[2017-02-01] MEDS: ALBUTEROL/IPRATROPIUM (NEB) 3 ML AMP HHN SCH ×4 (01:33→13:16)
[2017-02-01] MEDS: FUROSEMIDE 40 MG INJ IV SCH (06:43)
[2017-02-01 07:45] VITALS: BP 118/75; RESP 19
[2017-02-01] MEDS: NICOTINE (21 MG/24 HR) PATCH TRANSDERM SCH (08:37)
[2017-02-01 08:38] LABS: BASOPHILS % 0.4 % (0.0-2.0); EOSINOPHILS # 0.1 10^3/ul (0.0-0.5); EOSINOPHILS % 1.1 % (0.0-7.0); HEMATOCRIT 41.6 % (42.0-52.0); HEMOGLOBIN 13.9 g/dl (14.0-18.0); LYMPHOCYTES # 2.8 10^3/ul (0.8-2.9); MEAN CORPUSCULAR HEMOGLOBIN 30.8 pg (29.0-33.0); MEAN CORPUSCULAR HGB CONC 33.4 g/dl (32.0-37.0); MEAN CORPUSCULAR VOLUME 92.2 fl (82.0-101.0); MEAN PLATELET VOLUME 10.8 fl (7.4-10.4); MONOCYTE # 1.1 10^3/ul (0.3-0.9); MONOCYTES % 11.2 % (0.0-11.0); NEUTROPHIL # 5.2 10^3/ul (1.6-7.5); PLATELET COUNT 340 10^3/UL (140-415); RED BLOOD COUNT 4.51 10^6/ul (4.70-6.10); RED CELL DISTRIBUTION WIDTH 15.2 % (11.5-14.5); WHITE BLOOD COUNT 9.7 10^3/ul (4.8-10.8)
[2017-02-01] MEDS: OXCARBAZEPINE 150 MG TAB PO SCH (08:38)
[2017-02-01] MEDS: HEPARIN 5,000 UNIT/0.5 ML VIAL SC SCH (08:47)
[2017-02-01 08:52] LABS: CALCIUM 9.1 mg/dl (8.4-10.2); CREATININE 0.92 mg/dl (0.61-1.24); POTASSIUM 3.5 mmol/L (3.5-5.1)
[2017-02-01] MEDS: DIVALPROEX (EC) 125 MG TAB PO SCH ×2 (10:25→13:08)
[2017-02-01 15:00] VITALS: BP 121/69; RESP 19
[2017-02-01] MEDS ORDERED: NICO1PAT6 TRANSDERM (15:39)
--- NOTE | 2017-02-01 15:40 | PDOCDIS ---
Discharge Instructions CONDITION Patient Condition: Stable FOLLOW UP/APPOINTMENTS Follow-up Plan Follow up with the [facility] primary care clinic within 7 days [id number] [place] [address] CHAD DRUMMOND MD Feb 01, 2017 15:40
--- NOTE | 2017-02-01 15:43 | DS ---
Date/Time of Note Date/Time of Note DATE: 02/01/17 TIME: 15:42 Discharge Summary Admission/Discharge Info Admit Date/Time Jan 30, 2017 at 16:43 Discharge Date/Time Discharge Diagnosis homelessness, shortness of breath Patient Condition: Stable Consults none Procedures CXR 11. IMPRESSION: 1. Persistent elevation of the left hemidiaphragm with compressive atelectasis in the lingula and left lower lobe. 2. Plate-like atelectasis in the medial aspect of the right lower lobe. 3. Spondylosis of the thoracic spine. 4. Old fracture deformity of the lateral left clavicle. Hx of Present Illness A 62-year-old male with past medical history of bipolar disorder, COPD, pneumonia, prior heart attack, seizure disorder, essential hypertension, former alcohol use, current smoker, who says he has been having shortness of breath for the last 1 to 2 days. He also says he has had some issue after being discharged from the hospital recently 2 days ago finding a place to call home. His friend was supposed to let him live with him, but he was not able to find residence at his friend's place. In any event, he has noticed some more lower extremity swelling, increased shortness of breath symptoms, but no cough or chest pain. No fevers or chills. No diarrhea or constipation. No nausea or vomiting. No headaches or dizziness or loss of consciousness. Hospital Course Pt recently admitted 11.6-11.8 for SOB 2/2 CAP. TTE during that admission with EF low normal (50%). Pt discharged with PO abx which he states he completed. However the friend with whom patient had planned on staying changed his mind and patient returned to the hospital as he did not have a place to stay. CXR without evidence of new lesion/infiltrate. TTE from last week without significant EF depression. Patient is discharged to [facility] and advised to follow up with Sobeida Schmitz within 1 week No changes made from admit meds except that pt completed his levoflox for CAP. Home Meds Active Scripts Nicotine* (Nicotine* Patch) 21 mg/day Patch, 1 PATCH TRANSDERM DAILY for 30 Days , #30 PATCH Prov:CHAD DRUMMOND MD 02/01/17 Albuterol Sulfate* (Ventolin HFA*) 18 Gm Hfa.aer.ad, 2 PUFF INHALATION Q4H, #1 INHALER Prov:TAL MOSES 01/27/17 Levofloxacin* (Levaquin*) 500 Mg Tablet, 500 MG PO DAILY, #7 TAB Prov:TAL MOSES 01/27/17 Carvedilol* (Carvedilol*) 3.125 Mg Tablet, 3.125 MG PO BID for 30 Days, #60 TAB Prov:TAL MOSES 01/27/17 Reported Medications Oxcarbazepine* (Trileptal*) 150 Mg Tablet, PO BID, TAB 06/14/14 Divalproex Sodium* (Depakote*) 125 Mg Tablet., JULIETA QID, TAB 06/14/14 Follow-up Plan Follow up with the [facility] primary care clinic within 7 days [id number] [place] [address] Primary Care Provider Not On Staff Doctor Time spent on discharge: > 30 minutes Pending Labs Laboratory Tests Test 02/01/17 07:57 White Blood Count 9.710^3/ul (4.8-10.8) Red Blood Count 4.5110^6/ul (4.70-6.10) Hemoglobin 13.9g/dl (14.0-18.0) Hematocrit 41.6% (42.0-52.0) Mean Corpuscular Volume 92.2fl (82.0-101.0) Mean Corpuscular Hemoglobin 30.8pg (29.0-33.0) Mean Corpuscular Hemoglobin Concent 33.4g/dl (32.0-37.0) Red Cell Distribution Width 15.2% (11.5-14.5) Platelet Count 53436^3/UL (140-415) Mean Platelet Volume 10.8fl (7.4-10.4) Neutrophils % 54.0% (39.0-77.0) Lymphocytes % 29.0% (15.0-51.0) Monocytes % 11.2% (0.0-11.0) Eosinophils % 1.1% (0.0-7.0) Basophils % 0.4% (0.0-2.0) Nucleated Red Blood Cells % 0.0/100WBC (0.0-0.0) Neutrophils # 5.210^3/ul (1.6-7.5) Lymphocytes # 2.810^3/ul (0.8-2.9) Monocytes # 1.110^3/ul (0.3-0.9) Eosinophils # 0.110^3/ul (0.0-0.5) Basophils # 0.010^3/ul (0.0-0.1) Nucleated Red Blood Cells # 0.010^3/ul (0.0-0.0) Sodium Level 142mmol/L (135-144) Potassium Level 3.5mmol/L (3.5-5.1) Chloride Level 101mmol/L (97-110) Carbon Dioxide Level 33mmol/L (21-31) Anion Gap 12 (8-16) Blood Urea Nitrogen 32mg/dl (7-20) Creatinine 0.92mg/dl (0.61-1.24) Glucose Level 95mg/dl (70-220) Calcium Level 9.1mg/dl (8.4-10.2) CHAD DRUMMOND MD Feb 01, 2017 15:43 Glucose Level 95mg/dl (70-220) Calcium Level 9.1mg/dl (8.4-10.2) CHAD DRUMMOND MD Feb 01, 2017 15:43
== END 2017-02-01 16:30 | disposition home or self-care (01) | DRG 292 ==
LOC: E/R 14:22 → TEL 16:43 → MS1 01-31 23:40
PROVIDERS: ADMIT Hospitalist; ATTEND Hospitalist
DX: I11.0 Hypertensive heart disease with heart failure (principal); J44.1 Chronic obstructive pulmonary disease with (acute) exacerbation; I50.33 Acute on chronic diastolic (congestive) heart failure; I25.2 Old myocardial infarction; G40.909 Epilepsy, unspecified, not intractable, without status epilepticus; F31.9 Bipolar disorder, unspecified; F17.210 Nicotine dependence, cigarettes, uncomplicated; Z59.0 Homelessness; Z87.01 Personal history of pneumonia (recurrent)
CPT/HCPCS: 36415; 71010; 80048; 80053; 80061; 82550; 82553; 83036; 83690; 83735; 83880; 84100; 84439; 84443; 84484; 85025; 87040; 93005; 94640; 94644; 94664; 96374; 96375; J1644; J1940; J1956; J2930

== ENCOUNTER 2017-02-13 20:55 | Inpatient (IN) | payer MEDICAID ==
[~2017-02-13] VITALS: Ht 172.7 cm; Wt 77.0 kg
[~2017-02-13 20:55] MED LIST changes: -LEVO500T72 PO; +NICO1PAT6 TRANSDERM
[2017-02-13 20:57] VITALS: Ht 172.7 cm; Wt 77.0 kg
[2017-02-13] MEDS ORDERED: ALBUTEROL 0.083% (NEB) 2.5 MG/3 ML AMP HHN STA ×2 (20:59→23:49)
[2017-02-13] MEDS ORDERED: IPRATROPIUM (NEB) 0.5 MG/2.5 ML AMP HHN ONE (21:00)
[2017-02-13] MEDS ORDERED: METHYLPREDNISOLONE 125 MG INJ IV ONE (21:30)
[2017-02-13 21:39] LABS: BASOPHIL # 0.1 10^3/ul (0.0-0.1); BASOPHILS % 0.8 % (0.0-2.0); EOSINOPHILS # 0.2 10^3/ul (0.0-0.5); EOSINOPHILS % 1.6 % (0.0-7.0); HEMATOCRIT 35.9 % (42.0-52.0); HEMOGLOBIN 12.1 g/dl (14.0-18.0); LYMPHOCYTES # 1.5 10^3/ul (0.8-2.9); LYMPHOCYTES % 13.6 % (15.0-51.0); MEAN CORPUSCULAR HEMOGLOBIN 31.6 pg (29.0-33.0); MEAN CORPUSCULAR HGB CONC 33.7 g/dl (32.0-37.0); MEAN CORPUSCULAR VOLUME 93.7 fl (82.0-101.0); MEAN PLATELET VOLUME 11.2 fl (7.4-10.4); MONOCYTE # 1.5 10^3/ul (0.3-0.9); MONOCYTES % 13.6 % (0.0-11.0); NEUTROPHIL # 7.6 10^3/ul (1.6-7.5); NEUTROPHILS % 70.1 % (39.0-77.0); PLATELET COUNT 258 10^3/UL (140-415); RED BLOOD COUNT 3.83 10^6/ul (4.70-6.10); RED CELL DISTRIBUTION WIDTH 16.2 % (11.5-14.5); WHITE BLOOD COUNT 10.9 10^3/ul (4.8-10.8)
--- NOTE | 2017-02-13 21:54 | RADRPT ---
PROCEDURE: Chest xray. CLINICAL INDICATION: Chest pain TECHNIQUE: A portable semiupright AP view of the chest was obtained. COMPARISON: 01/30/2017 FINDINGS: The cardiomediastinal silhouette is within normal limits. There is persistent elevation of the left hemidiaphragm. Pulmonary vascularity is within normal limits. No focal consolidation, pleural effusi on, or pneumothorax is identified. The skeletal structures and soft tissues are unremarkable. IMPRESSION: No acute intrathoracic abnormality. Stable elevation of the left hemidiaphragm. RPTAT:HKMK .Cindi Marroquin MD, MD Date Time Electronically viewed and signed by .Cindi Marroquin MD, on 02/13/2017 21:54 .K/
[2017-02-13 21:57] LABS: ANION GAP 9 (8-16); BLOOD UREA NITROGEN 14 mg/dl (7-20); CALCIUM 9.3 mg/dl (8.4-10.2); CARBON DIOXIDE 35 mmol/L (21-31); CHLORIDE 100 mmol/L (97-110); CREATININE 0.77 mg/dl (0.61-1.24); GLUCOSE 121 mg/dl (70-220); POTASSIUM 3.9 mmol/L (3.5-5.1); SODIUM 140 mmol/L (135-144)
[2017-02-13 22:00] VITALS: TEMP 98.1
[2017-02-13 22:10] LABS: B-TYPE NATRIURETIC PEPTIDE 496 PG/ML (0-125)
[2017-02-13 22:13] LABS: TROPONIN-I < 0.012 ng/ml (0.00-0.12)
[2017-02-13 23:45] LABS: AADO2 Arterial 68.7 mmHg (7.0-24.0); Arterial Base Excess 4.7 mmol/L (-3.0-3); Arterial COHb 4.1 % (0.0-3.0); Arterial Fraction of Oxyhgb 91.4 % (93.0-99.0); Arterial HCO3 31.7 mmol/L (22.0-26.0); Arterial MetHb 0.1 % (0.0-1.5); Arterial Total Hemglobin 13.7 g/dl (12.0-18.0); Blood Gas IEPAP 15 / 5; Blood Gas PS 10; MODE BCPAP
[2017-02-14] VITALS (14 sets, daily range): BP systolic 119–161; BP diastolic 79–158; PULSE 72–100; RESP 18; BMI 25.8
[2017-02-14] MEDS ORDERED: LACTATED RINGER'S 500 ML IV ONE
--- NOTE | 2017-02-14 00:03 | ERD ---
ER Documentation Chief Complaint Chief Complaint shortness of breath, sharp pain mid back pain 8 HPI This 62-year-old male presents with increasing shortness of breath for the last day. He has sharp pain in the middle of his back as well as chest tightness with no chest pain. Is also had a cough. States he was recently discharged for pneumonia a week and a half ago. Denies any fevers or chills currently. Have a history of COPD and smoking. ROS All systems reviewed and are negative except as per history of present illness. Medications Home Meds Active Scripts Nicotine* (Nicotine* Patch) 21 mg/day Patch, 1 PATCH TRANSDERM DAILY for 30 Days , #30 PATCH Prov:CHAD DRUMMOND MD 02/01/17 Albuterol Sulfate* (Ventolin HFA*) 18 Gm Hfa.aer.ad, 2 PUFF INHALATION Q4H, #1 INHALER Prov:TAL MOSES 01/27/17 Carvedilol* (Carvedilol*) 3.125 Mg Tablet, 3.125 MG PO BID for 30 Days, #60 TAB Prov:TAL MOSES 01/27/17 Reported Medications Oxcarbazepine* (Trileptal*) 150 Mg Tablet, PO BID, TAB 06/14/14 Divalproex Sodium* (Depakote*) 125 Mg Tablet., JULIETA ESTRELLA, TAB 06/14/14 Allergies Allergies: Coded Allergies: No Known Allergy (Unverified , 01/30/17) PMhx/Soc History of Surgery: Yes (hernia surgery 2016) Anesthesia Reaction: No Hx Neurological Disorder: No Hx Respiratory Disorders: Yes (COPD, PNA, Pleurisy) Hx Cardiac Disorders: Yes (LA (90's), HTN, CHF) Hx Psychiatric Problems: Yes (bipolar, psychotic tendencies) Hx Miscellaneous Medical Probl: No 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 Neck: Full range of motion..~ No meningismus. Resp: Rounds bilateral inspiratory and expiratory wheezes with decreased breath sounds. Cardio: Regular rate and rhythm, no murmurs Abd: Soft, non tender, non distended. Normal bowel sounds Skin: No petechiae or rashes Back: No midline or flank tenderness Ext: No cyanosis, or edema Neur: Awake and alert and oriented 3, no focal deficits Psych: Anxious Result Diagram: 02/13/17212502/13/172125 Results 24 hrs Laboratory Tests Test 02/13/17 21:26 02/13/17 23:11 White Blood Count 10.910^3/ul Red Blood Count 3.8310^6/ul Hemoglobin 12.1g/dl Hematocrit 35.9% Mean Corpuscular Volume 93.7fl Mean Corpuscular Hemoglobin 31.6pg Mean Corpuscular Hemoglobin Concent 33.7g/dl Red Cell Distribution Width 16.2% Platelet Count 02529^3/UL Mean Platelet Volume 11.2fl Neutrophils % 70.1% Lymphocytes % 13.6% Monocytes % 13.6% Eosinophils % 1.6% Basophils % 0.8% Nucleated Red Blood Cells % 0.0/100WBC Neutrophils # 7.610^3/ul Lymphocytes # 1.510^3/ul Monocytes # 1.510^3/ul Eosinophils # 0.210^3/ul Basophils # 0.110^3/ul Nucleated Red Blood Cells # 0.010^3/ul Sodium Level 140mmol/L Potassium Level 3.9mmol/L Chloride Level 100mmol/L Carbon Dioxide Level 35mmol/L Anion Gap 9 Blood Urea Nitrogen 14mg/dl Creatinine 0.77mg/dl Glucose Level 121mg/dl Calcium Level 9.3mg/dl Troponin I < 0.012ng/ml B-Type Natriuretic Peptide 496PG/ML Blood Gas Specimen Source Blood arterial Arterial Blood Date Drawn 02/13/2017 11:35:21 PM Arterial Blood pH (Temp corrected) 7.360 Arterial Blood pCO2 (Temp correct) 57.4mmhg Arterial Blood pO2 (Temp corrected) 77.8mmHG Arterial Blood HCO3 31.7mmol/L Arterial Blood Base Excess 4.7mmol/L Arterial Blood Oxygen Saturation 95.4mmHG Matthew Test N/A Arterial Blood Gas Puncture Site Right Brachial Arterial Blood Carboxyhemoglobin 4.1% Arterial Blood Methemoglobin 0.1% Blood Gas A-a O2 Differential 68.7mmHg Oxyhemoglobin Percent 91.4% Total Hemoglobin 13.7g/dl Blood Gas Temperature 37.0C Blood Gas Respiration Rate 20.0 Blood Gas Actual Respiration Rate 24 Blood Gas Modality BCPAP FiO2 30.0% Blood Gas Pressure Support 10 Blood Gas IPAP/EPAP Ratio 15 / 5 Blood Gas Critical Value Read Back Melody CEDENO Blood Gas Notified Whom BL Blood Gas Notified Time 02/13/2017 11:44:57 PM Current Medications Medications (Trade) Dose Ordered Sig/Jennifer Route PRN Reason Start Time Stop Time Status Last Admin Dose Admin Albuterol (Proventil 0.083% (Neb)) 15 mg ONCE STAT N 02/13/17 20:59 02/13/17 21:00 DC 02/13/17 21:08 Ipratropium [place] (Atrovent 0.02% (Neb)) 1 mg ONCE ONCE HHN 02/13/17 21:00 02/13/17 21:01 DC 02/13/17 21:08 Methylprednisolone Sodium Succinate (Solu-Medrol) 125 mg ONCE ONCE IV 02/13/17 21:30 02/13/17 21:31 DC 02/13/17 21:22 Albuterol (Proventil 0.083% (Neb)) 7.5 mg ONCE STAT N 02/13/17 23:49 02/13/17 23:51 DC Ondansetron HCl (Zofran Inj) 4 mg ER BRIDGE PRN IV NAUSEA AND/OR VOMITING 02/14/17 00:00 02/14/17 23:59 Acetaminophen (Tylenol Tab) 650 mg ER BRIDGE PRN PO MILD PAIN/FEVER 02/14/17 00:00 02/14/17 23:59 Procedures/MDM Severe COPD exacerbation. Patient been given a breathing treatment in the ambulance was significantly wheezing and working hard to breathe in the emergency room. He was given 15 mg albuterol and 1 mg Atrovent breathing treatment after which the aeration his lungs improved but he still had significant wheezing was still tachypneic. He was placed on BiPAP which he said he had had before and would welcome. This led to feeling less short of breath however he is still tachypneic. Another breathing treatment 7.5 mg was given. Is also given Solu-Medrol. ABG after 2 hours on BiPAP showed some CO2 retention with low pulmonary aeration. No signs of pneumonia on chest x-ray currently. EKG is nonischemic and he has a negative troponin and I have low suspicion for acute coronary syndrome while his troponins will be trended.. Although he had back pain have low suspicion for aortic dissection given the amount of wheezing with his COPD history. Stable blood pressure. Troponins will be trended nearly closely monitored. Patient has improved to the point I do not think he needs ICU admission he is being admitted by Dr. Michaels Chest x-ray interpretation: I see no acute process. I see no pulmonary edema, no pneumothorax, no infiltrates, no fractures EKG interpretation: Normal sinus rhythm rate of 94, normal axis, no ST or T- wave changes concerning for acute ischemia. Abnormal QRS angle is nonspecific, normal intervals. Normal EKG charge out clerk interpretation: Initial sinus tachycardia followed by normal sinus rhythm. Care time greater than 35 minutes: This includes treatment of severe respiratory distress, use of noninvasive positive pressure ventilation, multiple visits patient's bedside to reassess status, chart reviewed, use of multiple nebulized treatments, treatment of unstable vital signs, discussion with patient and admitting doctor. This does not include any billable procedures. Departure Diagnosis: Primary Impression: Hypercapnic respiratory failure Additional Impression: COPD, severe Condition: Serious SENDYMARYCRUZNATI DO Feb 14, 2017 00:03
[2017-02-14] MEDS ORDERED: ONDANSETRON 4 MG INJ IV PRN ×2 (05:00)
[2017-02-14] MEDS ORDERED: ACETAMINOPHEN 325 MG TAB PO PRN ×2 (05:00)
[2017-02-14] MEDS ORDERED: LORAZEPAM 2 MG INJ IV PRN (05:00)
[2017-02-14] MEDS ORDERED: NACL 0.9% 3 ML SYG IV SCH (05:00)
[2017-02-14] MEDS ORDERED: ALBUTEROL/IPRATROPIUM (NEB) 3 ML AMP HHN PRN (05:00)
[2017-02-14] MEDS: NICOTINE (21 MG/24 HR) PATCH TRANSDERM SCH (08:09)
[2017-02-14] MEDS: ENOXAPARIN 40 MG/0.4 ML SYG SC SCH (08:10)
[2017-02-14 08:31] LABS: ABNORMAL IP MESSAGE 1; HEMATOCRIT 35.6 % (42.0-52.0); HEMOGLOBIN 11.8 g/dl (14.0-18.0); LYMPHOCYTES # 0.4 10^3/ul (0.8-2.9); LYMPHOCYTES % 8.3 % (15.0-51.0); MEAN CORPUSCULAR HEMOGLOBIN 31.1 pg (29.0-33.0); MEAN CORPUSCULAR HGB CONC 33.1 g/dl (32.0-37.0); MEAN CORPUSCULAR VOLUME 93.7 fl (82.0-101.0); MEAN PLATELET VOLUME 11.1 fl (7.4-10.4); MONOCYTE # 0.1 10^3/ul (0.3-0.9); MONOCYTES % 1.2 % (0.0-11.0); NEUTROPHIL # 3.8 10^3/ul (1.6-7.5); NEUTROPHILS % 90.3 % (39.0-77.0); PLATELET COUNT 259 10^3/UL (140-415); POSITIVE DIFF @See below; RED CELL DISTRIBUTION WIDTH 16.1 % (11.5-14.5); WHITE BLOOD COUNT 4.2 10^3/ul (4.8-10.8)
[2017-02-14 08:52] LABS: ALBUMIN 3.4 g/dl (3.3-4.9); ALBUMIN/GLOBULIN RATIO 1.17; BILIRUBIN,INDIRECT 0.5 mg/dl (0-1.1); BILIRUBIN,TOTAL 0.5 mg/dl (0.2-1.3); CALCIUM 8.9 mg/dl (8.4-10.2); CREATININE 0.51 mg/dl (0.61-1.24); MAGNESIUM 1.8 mg/dl (1.7-2.5); POTASSIUM 4.2 mmol/L (3.5-5.1); TOTAL PROTEIN 6.3 g/dl (6.1-8.1)
[2017-02-14 08:54] LABS: CREATINE KINASE 45 IU/L (23-200)
[2017-02-14] MEDS ORDERED: METHYLPREDNISOLONE 40 MG INJ IV SCH (09:00)
[2017-02-14 09:05] LABS: CK-MB 2.24 ng/ml (0.0-2.4); TROPONIN-I < 0.012 ng/ml (0.00-0.12)
--- NOTE | 2017-02-14 09:15 | HP ---
Date/Time of Note Date/Time of Note DATE: 02/14/17 TIME: 09:06 Assessment/Plan VTE Prophylaxis VTE Prophylaxis Intervention: heparin Lines/Catheters IV Catheter Type (from Nrs): Saline Lock Assessment/Plan Assessment/Plan 1. COPD exacerbation -Supplemental oxygen, breathing treatments, steroid -Positive pressure ventilation as needed 2. History of bipolar -Continue medications 3. History of seizure Continue outpatient medication HPI/ROS Admit Date/Time Admit Date/Time Feb 13, 2017 at 23:51 Hx of Present Illness This is a 62-year-old male with a history of COPD, bipolar, seizure, CT and recent pneumonia who was sent from [facility] for shortness of breath and wheezing. Patient was admitted here and treated for a COPD exacerbation and pneumonia and actually was just discharged about 3 weeks ago. Symptoms started a few days ago and has been progressively getting worse. He said he has been compliant with his medications. When he presented to the ER, ABG showed a PCO2 of 57 and PO2 of 77 on 30% FiO2. He was placed on BiPAP with improvement of his symptoms. Chest x-ray showed stable elevation of the left hemidiaphragm. On physical exam patient has a significant diffuse wheezing. PMH/Family/Social Past Surgical History Past Surgical Hx: no surgical history Social History Smoking Status: Current every day smoker Exam/Review of Systems Vital Signs Vitals Vital Signs Date Time Temp Pulse Resp B/P Pulse Ox O2 Delivery O2 Flow Rate FiO2 02/14/17 08:34 81 94 30 02/14/17 08:01 98.0 18 119/83 02/14/17 03:00 BIPAP Intake and Output 02/13/17 02/13/17 02/14/17 15:00 23:00 07:00 Intake Total 0 ml Balance 0 ml Exam Constitutional: alert, oriented, other (Appears a slightly uncomfortable when taken off of the BiPAP.) Head: atraumatic, normocephalic Eyes: EOMI, PERRL Respiratory: diminished breath sounds, other (Significant diffuse wheezing) Cardiovascular: nl pulses, regular rate and rhythm Gastrointestinal: non-tender, soft Extremities: normal pulses Labs Result Diagram: 02/14/17 0758 02/14/17 0758 Medications Medications Current Medications Lorazepam (Ativan) 0.5 mg Q6H PRN IV ANXIETY; Start 02/14/17 at 05:00 Ondansetron HCl (Zofran Inj) 4 mg Q6H PRN IV NAUSEA AND/OR VOMITING; Start at 05:00 Acetaminophen (Tylenol Tab) 650 mg Q6H PRN PO PAIN LEVEL 1-3 OR FEVER; Start 02/14/17 at 05:00 Morphine Sulfate (morphine) 2 mg Q4H PRN IV PAIN LEVEL 7-10; Start 02/14/17 at 05:00 Enoxaparin Sodium (Lovenox) 40 mg DAILY SC Last administered on 02/14/17 08: 10; Admin Dose 40 MG; Start 02/14/17 at 09:00 Methylprednisolone Sodium Succinate (Solu-Medrol) 40 mg Q12 IV Last administered on 02/14/17 08:09; Admin Dose 40 MG; Start 02/14/17 at 09:00 Nicotine (Nicoderm 21 Mg/ 24hr) 1 patch DAILY TRANSDERM Last administered on 08:09; Admin Dose 1 PATCH; Start 02/14/17 at 09:00 Influenza Virus Vaccine (Fluzone) 0.5 ml ONCE ONCE IM* ; Start 02/15/17 at 09: 00; Stop 02/15/17 at 09:01 MARISABEL RIVERS MD Feb 14, 2017 09:15
[2017-02-14 10:22] LABS: Allen Test ACCEPTAB; Arterial Base Excess 4.4 mmol/L (-3.0-3); Arterial COHb 1.4 % (0.0-3.0); Arterial Fraction of Oxyhgb 94.3 % (93.0-99.0); Arterial HCO3 29.6 mmol/L (22.0-26.0); Arterial MetHb 0.2 % (0.0-1.5); Arterial Total Hemglobin 13.7 g/dl (12.0-18.0); MODE NASAL CANNULA
[2017-02-14 10:44] LABS: CREATINE KINASE 46 IU/L (23-200)
[2017-02-14 10:59] LABS: CK-MB 2.24 ng/ml (0.0-2.4); TROPONIN-I < 0.012 ng/ml (0.00-0.12)
[2017-02-14] MEDS: SALMETEROL/FLUTICASONE 250/50 INHA INH SCH ×2 (12:28→21:18)
[2017-02-14] MEDS: AZITHROMYCIN 500MG/NS (PMX) 250 ML IVPB SCH (12:29)
--- NOTE | 2017-02-14 13:18 | PN ---
Date/Time of Note Date/Time of Note DATE: 02/14/17 TIME: 13:17 Assessment/Plan VTE Prophylaxis VTE Prophylaxis Intervention: SCD's Lines/Catheters IV [facility] Saline Lock Assessment/Plan Chief Complaint/Hosp Course Assessment and plan 1. COPD exacerbation. Continue bronchodilators. Continue with IV steroid. Will place on Advair as well. Titrate off O2 as tolerated. BiPAP as needed. 2. History of bipolar. Continue home antipsychotic medications. 3. History of seizures. No active issues noted at this time. We will follow- up with patient's on medication and resume 4. Suspect bronchitis. Chest x-ray with no evidence of possible pneumonia. Patient with congested cough. With sputum culture. Continue with antibiotic now. Disposition plan: Continue bronchodilators and pulmonary treatment. Monitor for clinical improvement. Continue in-house monitoring for now. Discussed plan of care with Dr. Singh Problems: Subjective 24 Hr Interval Summary Free Text/Dictation Reports better breathing at this time. Exam/Review of Systems Vital Signs Vitals Vital Signs Date Time Temp Pulse Resp B/P Pulse Ox O2 Delivery O2 Flow Rate FiO2 02/14/17 12:35 93 02/14/17 12:00 3.0 02/14/17 11:58 98.0 18 161/92 98 02/14/17 08:34 30 02/14/17 03:00 BIPAP Intake and Output 02/13/17 02/13/17 02/14/17 15:00 23:00 07:00 Intake Total 0 ml Balance 0 ml Exam Constitutional: alert, oriented Psych: nl mood/affect Head: normocephalic Eyes: nl conjunctiva Neck: non-tender, supple Respiratory: congested cough, wheezing Cardiovascular: other (Regular rate) Gastrointestinal: non-tender, soft Extremities: normal pulses Neurological: BICYCLE RACER II-XII intact, nl mental status, nl speech Skin: nl turgor Results Result Diagram: 02/14/17 0758 02/14/17 0758 Results 24 hrs Laboratory Tests Test 02/13/17 21:26 02/13/17 23:11 02/14/17 07:58 02/14/17 09:55 White Blood Count 10.9 H 4.2 #L Red Blood Count 3.83 L 3.80 L Hemoglobin 12.1 L 11.8 L Hematocrit 35.9 L 35.6 L Mean Corpuscular Volume 93.7 93.7 Mean Corpuscular Hemoglobin 31.6 31.1 Mean Corpuscular Hemoglobin Concent 33.7 33.1 Red Cell Distribution Width 16.2 H 16.1 H Platelet Count 258 # 259 Mean Platelet Volume 11.2 H 11.1 H Neutrophils % 70.1 90.3 H Lymphocytes % 13.6 L 8.3 L Monocytes % 13.6 H 1.2 Eosinophils % 1.6 0.0 Basophils % 0.8 0.0 Nucleated Red Blood Cells % 0.0 0.0 Neutrophils # 7.6 H 3.8 Lymphocytes # 1.5 0.4 L Monocytes # 1.5 H 0.1 L Eosinophils # 0.2 0.0 Basophils # 0.1 0.0 Nucleated Red Blood Cells # 0.0 0.0 Sodium Level 140 140 Potassium Level 3.9 4.2 Chloride Level 100 101 Carbon Dioxide Level 35 H 30 Anion Gap 9 13 Blood Urea Nitrogen 14 9 Creatinine 0.77 0.51 L Glucose Level 121 153 Calcium Level 9.3 8.9 Troponin I < 0.012 < 0.012 B-Type Natriuretic Peptide 496 H Blood Gas Specimen Source Blood arterial Blood arterial Arterial Blood Date Drawn 02/13/2017 11:35:21 PM 02/14/2017 10:09:18 AM Arterial Blood pH (Temp corrected) 7.360 7.421 Arterial Blood pCO2 (Temp correct) 57.4 H 46.6 H Arterial Blood pO2 (Temp corrected) 77.8 L 76.1 L Arterial Blood HCO3 31.7 H 29.6 H Arterial Blood Base Excess 4.7 H 4.4 H Arterial Blood Oxygen Saturation 95.4 95.8 Matthew Test N/A ACCEPTAB Arterial Blood Gas Puncture Site Right Brachial Right Radial Arterial Blood Carboxyhemoglobin 4.1 H 1.4 Arterial Blood Methemoglobin 0.1 0.2 Blood Gas A-a O2 Differential 68.7 H 83.0 H Oxyhemoglobin Percent 91.4 L 94.3 Total Hemoglobin 13.7 13.7 Blood Gas Temperature 37.0 37.0 Blood Gas Respiration Rate 20.0 Blood Gas Actual Respiration Rate 24 24 Blood Gas Modality BCPAP NASAL CANNULA FiO2 30.0 30.0 Blood Gas Pressure Support 10 Blood Gas IPAP/EPAP Ratio 15 / 5 Blood Gas Critical Value Read Back Melody CEDENO Blood Gas Notified Whom TIERA MANRIQUEZ RT Blood Gas Notified Time 02/13/2017 11:44:57 PM 02/14/2017 10:22:35 AM Magnesium Level 1.8 Total Bilirubin 0.5 Direct Bilirubin 0.00 Indirect Bilirubin 0.5 Aspartate Amino Transf (AST/SGOT) 21 Alanine Aminotransferase (ALT/SGPT) 28 Alkaline Phosphatase 72 Creatine Kinase 45 Creatine Kinase Index 5.0 Creatinine Kinase MB (Mass) 2.24 Total Protein 6.3 Albumin 3.4 Globulin 2.90 Albumin/Globulin Ratio 1.17 Test 02/14/17 10:13 Creatine Kinase 46 Creatine Kinase Index 4.9 Creatinine Kinase MB (Mass) 2.24 Troponin I < 0.012 Medications Medications Current Medications Lorazepam (Ativan) 0.5 mg Q6H PRN IV ANXIETY; Start 02/14/17 at 05:00 Ondansetron HCl (Zofran Inj) 4 mg Q6H PRN IV NAUSEA AND/OR VOMITING; Start at 05:00 Acetaminophen (Tylenol Tab) 650 mg Q6H PRN PO PAIN LEVEL 1-3 OR FEVER; Start 02/14/17 at 05:00 Morphine Sulfate (morphine) 2 mg Q4H PRN IV PAIN LEVEL 7-10; Start 02/14/17 at 05:00 Enoxaparin Sodium (Lovenox) 40 mg DAILY SC Last administered on 02/14/17 08: 10; Admin Dose 40 MG; Start 02/14/17 at 09:00 Nicotine (Nicoderm 21 Mg/ 24hr) 1 patch DAILY TRANSDERM Last administered on 08:09; Admin Dose 1 PATCH; Start 02/14/17 at 09:00 Influenza Virus Vaccine (Fluzone) 0.5 ml ONCE ONCE IM* ; Start 02/15/17 at 09: 00; Stop 02/15/17 at 09:01 Methylprednisolone Sodium Succinate (Solu-Medrol) 60 mg Q12 IV ; Start at 21:00 Salmeterol Xinafoate/ Fluticasone 1 inh 1 inh BID INH Last administered on 12:28; Admin Dose 1 INH; Start 02/14/17 at 13:00 Azithromycin (Zithromax 500mg/ NS (Pmx)) 250 ml @ 250 mls/hr Q24H IVPB Last administered on 02/14/17t 12:29; Admin Dose 250 MLS/HR; Start 02/14/17 at 13: 00 TAL MOSES Feb 14, 2017 13:18
[2017-02-14] MEDS: ALBUTEROL/IPRATROPIUM (NEB) 3 ML AMP HHN SCH ×3 (14:21→20:17)
[2017-02-14] MEDS: METHYLPREDNISOLONE 125 MG INJ IV SCH (21:18)
[2017-02-15] VITALS (12 sets, daily range): BP systolic 121–160; BP diastolic 78–96; PULSE 75–107; RESP 16–20
[2017-02-15 07:27] LABS: ABNORMAL IP MESSAGE 1; HEMATOCRIT 34.7 % (42.0-52.0); HEMOGLOBIN 11.5 g/dl (14.0-18.0); LYMPHOCYTES # 0.5 10^3/ul (0.8-2.9); LYMPHOCYTES % 5.3 % (15.0-51.0); MEAN CORPUSCULAR HEMOGLOBIN 31.2 pg (29.0-33.0); MEAN CORPUSCULAR HGB CONC 33.1 g/dl (32.0-37.0); MEAN PLATELET VOLUME 11.3 fl (7.4-10.4); MONOCYTE # 0.3 10^3/ul (0.3-0.9); MONOCYTES % 3.3 % (0.0-11.0); NEUTROPHILS % 90.8 % (39.0-77.0); PLATELET COUNT 230 10^3/UL (140-415); POSITIVE DIFF @See below; RED BLOOD COUNT 3.69 10^6/ul (4.70-6.10); RED CELL DISTRIBUTION WIDTH 16.4 % (11.5-14.5); WHITE BLOOD COUNT 9.9 10^3/ul (4.8-10.8)
[2017-02-15] MEDS: ALBUTEROL/IPRATROPIUM (NEB) 3 ML AMP HHN SCH ×4 (07:40→20:01)
[2017-02-15 07:56] LABS: CALCIUM 9.1 mg/dl (8.4-10.2); CREATININE 0.56 mg/dl (0.61-1.24); MAGNESIUM 1.9 mg/dl (1.7-2.5); PHOSPHORUS 3.3 mg/dl (2.5-4.9); POTASSIUM 4.3 mmol/L (3.5-5.1)
[2017-02-15] MEDS ORDERED: INFLUENZA VIRUS VACCINE 0.5 ML (DISPENSING) IM* ONE (09:00)
[2017-02-15] MEDS: SALMETEROL/FLUTICASONE 250/50 INHA INH SCH ×2 (09:06→20:57)
[2017-02-15] MEDS: NICOTINE (21 MG/24 HR) PATCH TRANSDERM SCH (09:07)
[2017-02-15] MEDS: METHYLPREDNISOLONE 125 MG INJ IV SCH ×2 (09:07→20:57)
[2017-02-15] MEDS: ENOXAPARIN 40 MG/0.4 ML SYG SC SCH (09:18)
--- NOTE | 2017-02-15 10:57 | PN ---
Date/Time of Note Date/Time of Note DATE: 02/15/17 TIME: 10:54 Assessment/Plan VTE Prophylaxis VTE Prophylaxis Intervention: LMWH Lines/Catheters IV [facility] ([facility] Saline Lock Assessment/Plan Chief Complaint/Hosp Course 1. Acute hypoxic and hypercapnic respiratory failure. Secondary to COPD exacerbation. Continue inhaled bronchodilators. Continue supplemental oxygen. 2. COPD exacerbation. Continue inhaled bronchodilators. Continue tapering dose of steroids. 3. Nicotine use. Cessation advised. Continue nicotine patch. 4. Normocytic, normochromic anemia. Etiology unclear. Will obtain an iron panel. 5. Fluids, electrolytes, and nutrition. Regular diet. 6. DVT prophylaxis with subcutaneous Lovenox. 7. Gastrointestinal prophylaxis. Histamine 2 receptor ivana since the patient is getting IV steroids. 8. Plan. Continue tapering dose of steroids. Continue inhaled bronchodilators. Case discussed with Dr. Barnes. Problems: Subjective 24 Hr Interval Summary Free Text/Dictation Continues to have dyspnea. Exam/Review of Systems Vital Signs Vitals Vital Signs Date Time Temp Pulse Resp B/P Pulse Ox O2 Delivery O2 Flow Rate FiO2 02/15/17 08:13 75 02/15/17 07:57 98.1 18 141/95 95 02/15/17 07:41 Nasal Cannula 2.0 02/14/17 08:34 30 Intake and Output 02/14/17 02/14/17 02/15/17 15:00 23:00 07:00 Intake Total 250 ml 800 ml 500 ml Output Total 500 ml 1000 ml Balance -250 ml -200 ml 500 ml Exam General: Adequately build 62 year-old male lying in bed in mild to moderate respiratory distress. HEENT: Normocephalic, atraumatic. Eyes: Anicteric sclerae, conjunctivae clear. ENT: Nasal septum midline, oral mucosa moist. Neck supple, no JVD noticed. Respiratory: Bilaterally diminished breath sounds. Use of accessory muscles of respiration. Bilateral expiratory wheezing. Cardiovascular: S1, S2 heard. Regular rate and rhythm. Abdomen: Soft, nontender, and nondistended. Bowel sounds positive in all 4 quadrants. Genitourinary: Deferred. Extremities: No cyanosis, no edema. Peripheral pulses palpable. Neurologic: Cranial nerves II through XII grossly intact. The patient is awake, alert, and oriented. Skin: Normal skin turgor. No skin rashes. Results Result Diagram: 02/15/1770302/15/17703 Results 24 hrs Laboratory Tests Test 02/15/17 07:04 White Blood Count 9.9 # Red Blood Count 3.69 L Hemoglobin 11.5 L Hematocrit 34.7 L Mean Corpuscular Volume 94.0 Mean Corpuscular Hemoglobin 31.2 Mean Corpuscular Hemoglobin Concent 33.1 Red Cell Distribution Width 16.4 H Platelet Count 230 Mean Platelet Volume 11.3 H Neutrophils % 90.8 H Lymphocytes % 5.3 L Monocytes % 3.3 Eosinophils % 0.0 Basophils % 0.0 Nucleated Red Blood Cells % 0.0 Neutrophils # 9.0 H Lymphocytes # 0.5 L Monocytes # 0.3 Eosinophils # 0.0 Basophils # 0.0 Nucleated Red Blood Cells # 0.0 Sodium Level 142 Potassium Level 4.3 Chloride Level 103 Carbon Dioxide Level 33 H Anion Gap 10 Blood Urea Nitrogen 14 Creatinine 0.56 L Glucose Level 131 Calcium Level 9.1 Phosphorus Level 3.3 Magnesium Level 1.9 Medications Medications Current Medications Lorazepam (Ativan) 0.5 mg Q6H PRN IV ANXIETY; Start 02/14/17 at 05:00 Ondansetron HCl (Zofran Inj) 4 mg Q6H PRN IV NAUSEA AND/OR VOMITING; Start at 05:00 Acetaminophen (Tylenol Tab) 650 mg Q6H PRN PO PAIN LEVEL 1-3 OR FEVER; Start 02/14/17 at 05:00 Morphine Sulfate (morphine) 2 mg Q4H PRN IV PAIN LEVEL 7-10; Start 02/14/17 at 05:00 Enoxaparin Sodium (Lovenox) 40 mg DAILY SC Last administered on 02/15/17 09: 18; Admin Dose 40 MG; Start 02/14/17 at 09:00 Nicotine (Nicoderm 21 Mg/ 24hr) 1 patch DAILY TRANSDERM Last administered on 09:07; Admin Dose 1 PATCH; Start 02/14/17 at 09:00 Methylprednisolone Sodium Succinate (Solu-Medrol) 60 mg Q12 IV Last administered on 02/15/17 09:07; Admin Dose 60 MG; Start 02/14/17 at 21:00 Salmeterol Xinafoate/ Fluticasone 1 inh 1 inh BID INH Last administered on 09:06; Admin Dose 1 INH; Start 02/14/17 at 13:00 Azithromycin (Zithromax 500mg/ NS (Pmx)) 250 ml @ 250 mls/hr Q24H IVPB Last administered on 02/14/17 12:29; Admin Dose 250 MLS/HR; Start 02/14/17 at 13: 00 KIKI BOYCE NP Feb 15, 2017 10:57
[2017-02-15 11:19] LABS: IRON 41 ug/dl (35-150)
[2017-02-15 11:28] LABS: TOTAL IRON BINDING CAPACITY 291 ug/dl (241-421)
[2017-02-15] MEDS: AZITHROMYCIN 500MG/NS (PMX) 250 ML IVPB SCH (13:03)
[2017-02-15] MEDS: FAMOTIDINE 20 MG TAB PO SCH (20:57)
[2017-02-16] VITALS (12 sets, daily range): BP systolic 131–154; BP diastolic 72–95; PULSE 69–109; RESP 18–22
--- NOTE | 2017-02-16 07:59 | PN ---
Date/Time of Note Date/Time of Note DATE: 02/16/17 TIME: 07:59 Assessment/Plan VTE Prophylaxis VTE Prophylaxis Intervention: LMWH Lines[facility] Assessment/Plan Chief Complaint/Hosp Course 1. Acute hypoxic and hypercapnic respiratory failure. Secondary to COPD exacerbation. Continue inhaled bronchodilators. Continue supplemental oxygen. 2. COPD exacerbation. Continue inhaled bronchodilators. Continue tapering dose of steroids. 3. Nicotine use. Cessation advised. Continue nicotine patch. 4. Normocytic, normochromic anemia. Etiology unclear. Iron panel showing low iron saturation. Monitor H&H closely. 5. Fluids, electrolytes, and nutrition. Regular diet. 6. DVT prophylaxis with subcutaneous Lovenox. 7. Gastrointestinal prophylaxis. Histamine 2 receptor ivana since the patient is getting IV steroids. 8. Plan. Continue tapering dose of steroids. Continue inhaled bronchodilators. Transfer the patient to Med/Surg. Case discussed with Dr. Barnes. Problems: Subjective 24 Hr Interval Summary Free Text/Dictation "Feeling better." Exam/Review of Systems Vital Signs Vitals Vital Signs Date Time Temp Pulse Resp B/P Pulse Ox O2 Delivery O2 Flow Rate FiO2 02/16/17 07:31 97.3 74 20 139/88 99 02/16/17 04:11 Nasal Cannula 3.0 02/14/17 08:34 30 Intake and Output 02/15/17 02/15/17 02/16/17 14:59 22:59 06:59 Intake Total 980 ml 600 ml Balance 980 ml 600 ml Exam General: Adequately build 62 year-old male lying in bed in mild to moderate respiratory distress. HEENT: Normocephalic, atraumatic. Eyes: Anicteric sclerae, conjunctivae clear. ENT: Nasal septum midline, oral mucosa moist. Neck supple, no JVD noticed. Respiratory: Bilaterally diminished breath sounds. Use of accessory muscles of respiration. Bilateral expiratory wheezing. Cardiovascular: S1, S2 heard. Regular rate and rhythm. Abdomen: Soft, nontender, and nondistended. Bowel sounds positive in all 4 quadrants. Genitourinary: Deferred. Extremities: No cyanosis, no edema. Peripheral pulses palpable. Neurologic: Cranial nerves II through XII grossly intact. The patient is awake, alert, and oriented. Skin: Normal skin turgor. No skin rashes. Results Result Diagram: 02/15/17 0704 02/15/17 0704 Medications Medications Current Medications Lorazepam (Ativan) 0.5 mg Q6H PRN IV ANXIETY; Start 02/14/17 at 05:00 Ondansetron HCl (Zofran Inj) 4 mg Q6H PRN IV NAUSEA AND/OR VOMITING; Start at 05:00 Acetaminophen (Tylenol Tab) 650 mg Q6H PRN PO PAIN LEVEL 1-3 OR FEVER Last administered on 02/15/17 20:59; Admin Dose 650 MG; Start 02/14/17 at 05:00 Morphine Sulfate (morphine) 2 mg Q4H PRN IV PAIN LEVEL 7-10; Start 02/14/17 at 05:00 Enoxaparin Sodium (Lovenox) 40 mg DAILY SC Last administered on 02/15/17 09: 18; Admin Dose 40 MG; Start 02/14/17 at 09:00 Nicotine (Nicoderm 21 Mg/ 24hr) 1 patch DAILY TRANSDERM Last administered on 09:07; Admin Dose 1 PATCH; Start 02/14/17 at 09:00 Methylprednisolone Sodium Succinate (Solu-Medrol) 60 mg Q12 IV Last administered on 02/15/17 20:57; Admin Dose 60 MG; Start 02/14/17 at 21:00 Salmeterol Xinafoate/ Fluticasone 1 inh 1 inh BID INH Last administered on 20:57; Admin Dose 1 INH; Start 02/14/17 at 13:00 Azithromycin (Zithromax 500mg/ NS (Pmx)) 250 ml @ 250 mls/hr Q24H IVPB Last administered on 02/15/17 13:03; Admin Dose 250 MLS/HR; Start 02/14/17 at 13: 00 Famotidine (Pepcid) 20 mg BID PO Last administered on 02/15/17 20:57; Admin Dose 20 MG; Start 02/15/17 at 21:00 KIKI BOYCE NP Feb 16, 2017 07:59
[2017-02-16] MEDS: NICOTINE (21 MG/24 HR) PATCH TRANSDERM SCH (08:31)
[2017-02-16] MEDS: FAMOTIDINE 20 MG TAB PO SCH ×2 (08:31→20:24)
[2017-02-16] MEDS: SALMETEROL/FLUTICASONE 250/50 INHA INH SCH ×2 (08:32→21:54)
[2017-02-16] MEDS: METHYLPREDNISOLONE 125 MG INJ IV SCH (08:32)
[2017-02-16] MEDS: morphine 2 MG INJ IV PRN ×3 (08:33→18:38)
[2017-02-16] MEDS: ENOXAPARIN 40 MG/0.4 ML SYG SC SCH (08:45)
[2017-02-16] MEDS: ALBUTEROL/IPRATROPIUM (NEB) 3 ML AMP HHN SCH ×4 (09:13→20:54)
[2017-02-16 09:14] LABS: HEMATOCRIT 36.4 % (42.0-52.0); HEMOGLOBIN 12.1 g/dl (14.0-18.0); LYMPHOCYTES # 0.7 10^3/ul (0.8-2.9); LYMPHOCYTES % 7.3 % (15.0-51.0); MEAN CORPUSCULAR HEMOGLOBIN 31.2 pg (29.0-33.0); MEAN CORPUSCULAR HGB CONC 33.2 g/dl (32.0-37.0); MEAN CORPUSCULAR VOLUME 93.8 fl (82.0-101.0); MEAN PLATELET VOLUME 11.5 fl (7.4-10.4); MONOCYTE # 0.5 10^3/ul (0.3-0.9); NEUTROPHIL # 8.6 10^3/ul (1.6-7.5); NEUTROPHILS % 87.1 % (39.0-77.0); PLATELET COUNT 241 10^3/UL (140-415); RED BLOOD COUNT 3.88 10^6/ul (4.70-6.10); RED CELL DISTRIBUTION WIDTH 16.3 % (11.5-14.5); WHITE BLOOD COUNT 9.9 10^3/ul (4.8-10.8)
[2017-02-16 09:28] LABS: MAGNESIUM 1.9 mg/dl (1.7-2.5); PHOSPHORUS 2.7 mg/dl (2.5-4.9)
[2017-02-16 09:30] LABS: CALCIUM 9.4 mg/dl (8.4-10.2); CREATININE 0.59 mg/dl (0.61-1.24); POTASSIUM 4.3 mmol/L (3.5-5.1)
[2017-02-16] MEDS: AZITHROMYCIN 500MG/NS (PMX) 250 ML IVPB SCH (13:29)
[2017-02-16] MEDS: METHYLPREDNISOLONE 40 MG INJ IV SCH (20:24)
[2017-02-17 02:00] VITALS: BP 128/83; RESP 19
[2017-02-17 05:50] LABS: ABNORMAL IP MESSAGE 1; BASOPHILS % 0.1 % (0.0-2.0); HEMOGLOBIN 11.2 g/dl (14.0-18.0); LYMPHOCYTES # 0.5 10^3/ul (0.8-2.9); LYMPHOCYTES % 6.8 % (15.0-51.0); MEAN CORPUSCULAR HEMOGLOBIN 31.3 pg (29.0-33.0); MEAN CORPUSCULAR HGB CONC 32.9 g/dl (32.0-37.0); MEAN PLATELET VOLUME 10.9 fl (7.4-10.4); MONOCYTE # 0.4 10^3/ul (0.3-0.9); MONOCYTES % 5.2 % (0.0-11.0); NEUTROPHIL # 6.9 10^3/ul (1.6-7.5); NEUTROPHILS % 87.5 % (39.0-77.0); PLATELET COUNT 208 10^3/UL (140-415); POSITIVE DIFF @See below; RED BLOOD COUNT 3.58 10^6/ul (4.70-6.10); RED CELL DISTRIBUTION WIDTH 16.4 % (11.5-14.5); WHITE BLOOD COUNT 7.9 10^3/ul (4.8-10.8)
[2017-02-17 06:42] LABS: CALCIUM 9.1 mg/dl (8.4-10.2); CREATININE 0.71 mg/dl (0.61-1.24); POTASSIUM 4.9 mmol/L (3.5-5.1)
[2017-02-17 06:43] LABS: PHOSPHORUS 3.3 mg/dl (2.5-4.9)
[2017-02-17 08:17] VITALS: BP 146/92; RESP 16
[2017-02-17] MEDS: AZITHROMYCIN 250 MG TAB PO SCH (08:55)
[2017-02-17] MEDS: NICOTINE (21 MG/24 HR) PATCH TRANSDERM SCH (08:55)
[2017-02-17] MEDS: FAMOTIDINE 20 MG TAB PO SCH ×2 (08:55→20:10)
[2017-02-17] MEDS: SALMETEROL/FLUTICASONE 250/50 INHA INH SCH ×2 (08:55→20:10)
[2017-02-17] MEDS: METHYLPREDNISOLONE 40 MG INJ IV SCH ×2 (08:55→20:10)
[2017-02-17] MEDS: ALBUTEROL/IPRATROPIUM (NEB) 3 ML AMP HHN SCH ×4 (08:58→21:40)
[2017-02-17] MEDS: ENOXAPARIN 40 MG/0.4 ML SYG SC SCH (08:58)
[2017-02-17] MEDS: morphine 2 MG INJ IV PRN ×4 (09:29→23:03)
--- NOTE | 2017-02-17 14:07 | PN ---
Date/Time of Note Date/Time of Note DATE: 02/17/17 TIME: 14:05 Assessment/Plan VTE Prophylaxis VTE Prophylaxis Intervention: LMWH Lines/Catheters IV Catheter Type (from [facility] Saline Lock Assessment/Plan Chief Complaint/Hosp Course 1. Acute hypoxic and hypercapnic respiratory failure. Secondary to COPD exacerbation. Continue inhaled bronchodilators. Continue supplemental oxygen. 2. COPD exacerbation. Continue inhaled bronchodilators. Continue tapering dose of steroids. 3. Essential hypertension. Beta-blockers on hold because of underlying bronchospasms. Blood pressure stable. 4. Bipolar disorder. 5. Nicotine use. Cessation advised. Continue nicotine patch. 6. Normocytic, normochromic anemia. Etiology unclear. Iron panel showing low iron saturation. Monitor H&H closely. 7. Fluids, electrolytes, and nutrition. Regular diet. 8. DVT prophylaxis with subcutaneous Lovenox. 9. Gastrointestinal prophylaxis. Histamine 2 receptor ivana since the patient is getting steroids. 10. Plan. Continue tapering dose of steroids. Continue inhaled bronchodilators. ABG on room air to evaluate for home oxygen. Case discussed with Dr. Barnes. Problems: Subjective 24 Hr Interval Summary Free Text/Dictation Breathing better. Exam/Review of Systems Vital Signs Vitals Vital Signs Date Time Temp Pulse Resp B/P Pulse Ox O2 Delivery O2 Flow Rate FiO2 02/17/17 12:38 84 16 95 Nasal Cannula 2.0 02/17/17 08:17 98.5 146/92 02/14/17 08:34 30 Intake and Output 02/16/17 02/16/17 02/17/17 15:00 23:00 07:00 Intake Total 250 ml 1200 ml 300 ml Balance 250 ml 1200 ml 300 ml Exam General: Adequately build 62 year-old male lying in bed in no apparent distress. HEENT: Normocephalic, atraumatic. Eyes: Anicteric sclerae, conjunctivae clear. ENT: Nasal septum midline, oral mucosa moist. Neck supple, no JVD noticed. Respiratory: Bilaterally diminished breath sounds. No use of accessory muscles of respiration. Bilateral expiratory wheezing. Cardiovascular: S1, S2 heard. Regular rate and rhythm. Abdomen: Soft, nontender, and nondistended. Bowel sounds positive in all 4 quadrants. Genitourinary: Deferred. Extremities: No cyanosis, no edema. Peripheral pulses palpable. Neurologic: Cranial nerves II through XII grossly intact. The patient is awake, alert, and oriented. Skin: Normal skin turgor. No skin rashes. Results Result Diagram: 02/17/1752502/17/17525 Results 24 hrs Laboratory Tests Test 02/16/17 20:22 02/17/17 05:26 Bedside Glucose 140 White Blood Count 7.9 # Red Blood Count 3.58 L Hemoglobin 11.2 L Hematocrit 34.0 L Mean Corpuscular Volume 95.0 Mean Corpuscular Hemoglobin 31.3 Mean Corpuscular Hemoglobin Concent 32.9 Red Cell Distribution Width 16.4 H Platelet Count 208 Mean Platelet Volume 10.9 H Neutrophils % 87.5 H Lymphocytes % 6.8 L Monocytes % 5.2 Eosinophils % 0.0 Basophils % 0.1 Nucleated Red Blood Cells % 0.0 Neutrophils # 6.9 Lymphocytes # 0.5 L Monocytes # 0.4 Eosinophils # 0.0 Basophils # 0.0 Nucleated Red Blood Cells # 0.0 Sodium Level 141 Potassium Level 4.9 Chloride Level 103 Carbon Dioxide Level 34 H Anion Gap 9 Blood Urea Nitrogen 20 Creatinine 0.71 Glucose Level 113 Calcium Level 9.1 Phosphorus Level 3.3 Magnesium Level 2.0 Medications Medications Current Medications Lorazepam (Ativan) 0.5 mg Q6H PRN IV ANXIETY; Start 02/14/17 at 05:00 Ondansetron HCl (Zofran Inj) 4 mg Q6H PRN IV NAUSEA AND/OR VOMITING; Start at 05:00 Acetaminophen (Tylenol Tab) 650 mg Q6H PRN PO PAIN LEVEL 1-3 OR FEVER Last administered on 02/15/17 20:59; Admin Dose 650 MG; Start 02/14/17 at 05:00 Morphine Sulfate (morphine) 2 mg Q4H PRN IV PAIN LEVEL 7-10 Last administered on 02/17/17 09:29; Admin Dose 2 MG; Start 02/14/17 at 05:00 Enoxaparin Sodium (Lovenox) 40 mg DAILY SC Last administered on 02/17/17 08: 58; Admin Dose 40 MG; Start 02/14/17 at 09:00 Nicotine (Nicoderm 21 Mg/ 24hr) 1 patch DAILY TRANSDERM Last administered on 08:55; Admin Dose 1 PATCH; Start 02/14/17 at 09:00 Salmeterol Xinafoate/ Fluticasone (Advair 250/50 Diskus) 1 inh BID INH Last administered on 02/17/17 08:55; Admin Dose 1 INH; Start 02/14/17 at 13:00 Famotidine (Pepcid) 20 mg BID PO Last administered on 02/17/17 08:55; Admin Dose 20 MG; Start 02/15/17 at 21:00 Methylprednisolone Sodium Succinate (Solu-Medrol) 40 mg Q12 IV Last administered on 02/17/17 08:55; Admin Dose 40 MG; Start 02/16/17 at 21:00 Azithromycin (Zithromax) 500 mg DAILY PO Last administered on 02/17/17 08:55 ; Admin Dose 500 MG; Start 02/17/17 at 09:00 KIKI BOYCE NP Feb 17, 2017 14:07
[2017-02-17 15:17] LABS: AADO2 Arterial 31.7 mmHg (7.0-24.0); Allen Test ACCEPTAB; Arterial Base Excess 5.1 mmol/L (-3.0-3); Arterial COHb 0.5 % (0.0-3.0); Arterial Fraction of Oxyhgb 91.3 % (93.0-99.0); Arterial HCO3 30.4 mmol/L (22.0-26.0); Arterial MetHb 0.1 % (0.0-1.5); Arterial Total Hemglobin 13.3 g/dl (12.0-18.0); MODE ROOM AIR
[2017-02-17 19:47] VITALS: BP 134/86; RESP 20
[2017-02-18 02:07] VITALS: BP 133/86; RESP 18
[2017-02-18 07:25] VITALS: BP 141/98; RESP 18
[2017-02-18] MEDS: morphine 2 MG INJ IV PRN ×3 (09:04→19:25)
[2017-02-18] MEDS: NICOTINE (21 MG/24 HR) PATCH TRANSDERM SCH (09:07)
[2017-02-18] MEDS: METHYLPREDNISOLONE 40 MG INJ IV SCH (09:07)
[2017-02-18] MEDS: FAMOTIDINE 20 MG TAB PO SCH ×2 (09:07→21:18)
[2017-02-18] MEDS: AZITHROMYCIN 250 MG TAB PO SCH (09:07)
[2017-02-18] MEDS: SALMETEROL/FLUTICASONE 250/50 INHA INH SCH ×2 (09:07→21:17)
[2017-02-18] MEDS: ENOXAPARIN 40 MG/0.4 ML SYG SC SCH (09:08)
[2017-02-18] MEDS: ALBUTEROL/IPRATROPIUM (NEB) 3 ML AMP HHN SCH ×4 (09:30→21:04)
[2017-02-18 14:13] VITALS: BP 149/96; RESP 18
--- NOTE | 2017-02-18 15:31 | PN ---
Date/Time of Note Date/Time of Note DATE: 02/18/17 TIME: 15:29 Assessment/Plan VTE Prophylaxis VTE Prophylaxis Intervention: LMWH Lines/Catheters IV [facility]ter Type (from [facility]): Saline Lock Assessment/Plan Chief Complaint/Hosp Course 1. Acute hypoxic and hypercapnic respiratory failure. Secondary to COPD exacerbation. Continue inhaled bronchodilators. Continue supplemental oxygen. 2. COPD exacerbation. Continue inhaled bronchodilators. Continue tapering dose of steroids. 3. Essential hypertension. Beta-blockers on hold because of active bronchospasms. 4. Bipolar disorder. 5. Nicotine use. Cessation advised. Continue nicotine patch. 6. Normocytic, normochromic anemia. Etiology unclear. Iron panel showing low iron saturation. Monitor H&H closely. 7. Fluids, electrolytes, and nutrition. Regular diet. 8. DVT prophylaxis with subcutaneous Lovenox. 9. Gastrointestinal prophylaxis. Histamine 2 receptor ivana since the patient is getting steroids. 10. Plan. Continue tapering dose of steroids. Continue inhaled bronchodilators. ABG on room air does not qualify the patient for home oxygen. drive worker on the case for finding a placement (sober living) for the patient. Case discussed with Dr. Barnes. Problems: Subjective 24 Hr Interval Summary Free Text/Dictation Complains of back pain. Exam/Review of Systems Vital Signs Vitals Vital Signs Date Time Temp Pulse Resp B/P Pulse Ox O2 Delivery O2 Flow Rate FiO2 02/18/17 14:13 97.5 79 18 149/96 95 02/18/17 13:53 Nasal Cannula 2.0 02/14/17 08:34 30 Intake and Output 02/17/17 02/17/17 02/18/17 15:00 23:00 07:00 Intake Total 1700 ml 340 ml Balance 1700 ml 340 ml Exam General: Adequately build 62 year-old male lying in bed in no apparent distress. HEENT: Normocephalic, atraumatic. Eyes: Anicteric sclerae, conjunctivae clear. ENT: Nasal septum midline, oral mucosa moist. Neck supple, no JVD noticed. Respiratory: Bilaterally diminished breath sounds. No use of accessory muscles of respiration. Bilateral expiratory wheezing. Cardiovascular: S1, S2 heard. Regular rate and rhythm. Abdomen: Soft, nontender, and nondistended. Bowel sounds positive in all 4 quadrants. Genitourinary: Deferred. Extremities: No cyanosis, no edema. Peripheral pulses palpable. Neurologic: Cranial nerves II through XII grossly intact. The patient is awake, alert, and oriented. Skin: Normal skin turgor. No skin rashes. Results Result Diagram: 02/17/1752502/17/17525 Medications Medications Current Medications Lorazepam (Ativan) 0.5 mg Q6H PRN IV ANXIETY; Start 02/14/17 at 05:00 Ondansetron HCl (Zofran Inj) 4 mg Q6H PRN IV NAUSEA AND/OR VOMITING; Start at 05:00 Acetaminophen (Tylenol Tab) 650 mg Q6H PRN PO PAIN LEVEL 1-3 OR FEVER Last administered on 02/15/17 20:59; Admin Dose 650 MG; Start 02/14/17 at 05:00 Morphine Sulfate (morphine) 2 mg Q4H PRN IV PAIN LEVEL 7-10 Last administered on 02/18/17 14:26; Admin Dose 2 MG; Start 02/14/17 at 05:00 Enoxaparin Sodium (Lovenox) 40 mg DAILY SC Last administered on 02/18/17 09: 08; Admin Dose 40 MG; Start 02/14/17 at 09:00 Nicotine (Nicoderm 21 Mg/ 24hr) 1 patch DAILY TRANSDERM Last administered on 09:07; Admin Dose 1 PATCH; Start 02/14/17 at 09:00 Salmeterol Xinafoate/ Fluticasone (Advair 250/50 Diskus) 1 inh BID INH Last administered on 02/18/17 09:07; Admin Dose 1 INH; Start 02/14/17 at 13:00 Famotidine (Pepcid) 20 mg BID PO Last administered on 02/18/17 09:07; Admin Dose 20 MG; Start 02/15/17 at 21:00 Methylprednisolone Sodium Succinate (Solu-Medrol) 40 mg Q12 IV Last administered on 02/18/17 09:07; Admin Dose 40 MG; Start 02/16/17 at 21:00 Azithromycin (Zithromax) 500 mg DAILY PO Last administered on 02/18/17 09:07 ; Admin Dose 500 MG; Start 02/17/17 at 09:00 KIKI BOYCE NP Feb 18, 2017 15:31
[2017-02-18 19:38] VITALS: BP 134/85; RESP 20
[2017-02-19 02:05] VITALS: BP 130/84; RESP 20
[2017-02-19 07:25] VITALS: BP 150/95; RESP 18
[2017-02-19] MEDS: FAMOTIDINE 20 MG TAB PO SCH (08:49)
[2017-02-19] MEDS: ENOXAPARIN 40 MG/0.4 ML SYG SC SCH (08:50)
[2017-02-19] MEDS: NICOTINE (21 MG/24 HR) PATCH TRANSDERM SCH (08:51)
[2017-02-19] MEDS: SALMETEROL/FLUTICASONE 250/50 INHA INH SCH (08:53)
[2017-02-19] MEDS: ALBUTEROL/IPRATROPIUM (NEB) 3 ML AMP HHN SCH ×2 (08:56→13:00)
[2017-02-19] MEDS ORDERED: predniSONE 20 MG TAB PO SCH (09:00)
[2017-02-19] MEDS: morphine 2 MG INJ IV PRN (09:47)
[2017-02-19] MEDS: AZITHROMYCIN 250 MG TAB PO SCH (09:47)
[2017-02-19 10:10] VITALS: BP 130/89; PULSE 87
--- NOTE | 2017-02-19 11:16 | PDOCDIS ---
Discharge Instructions DIAGNOSIS Discharge Diagnosis COPD exacerbation. CONDITION Patient Condition: Stable HOME CARE INSTRUCTIONS: Diet Instructions: RegularSpecial Diet: regular diet FOLLOW UP/APPOINTMENTS Follow-up Plan Lemuel Koehler MD Specialty: Internal Medicine Office Address: [address] [place], [place] [id number] Office OTHER ORDERS: Other Orders: 1. Take medications as per prescription. 2. Take a regular diet. 3. Follow-up with your primary care physician 1 week. If you do not have a primary care physician, please call Dr. Lemuel Koehler's office. 4. Activities as tolerated. 5. Avoid tobacco. KIKI BOYCE NP Feb 19, 2017 11:16
[2017-02-19] MEDS ORDERED: PRED20TA PO (11:18)
[2017-02-19] MEDS ORDERED: ADV25050 INH (11:20)
[2017-02-19] MEDS ORDERED: HYDR-906 PO (11:20)
[2017-02-19] MEDS ORDERED: OXCA150T3 PO (11:22)
[2017-02-19] MEDS ORDERED: DIVA125T14 PO (11:22)
[2017-02-19 13:28] VITALS: BP 135/88; PULSE 92
--- NOTE | 2017-02-19 15:19 | DS ---
Date/Time of Note Date/Time of Note DATE: 02/19/17 TIME: 15:19 Discharge Summary Admission/Discharge Info Admit Date/Time Feb 13, 2017 at 23:51 Discharge Date/Time Feb 19, 2017 at 13:30 Discharge Diagnosis 1. Acute hypoxic and hypercapnic respiratory failure. 2. COPD exacerbation. 3. Nicotine use. 4. Essential hypertension. 5. Bipolar disorder. Patient Condition: Stable Consults None. Procedures CXR IMPRESSION: No acute intrathoracic abnormality. Stable elevation of the left hemidiaphragm. Hx of Present Illness This is a 62-year-old male with past medical history of COPD, bipolar disorder, essential hypertension, and nicotine use who came to the emergency room from a sober living facility because of shortness of breath and wheezing. Provided the patient's history of present illness, his comorbidities and the diagnostic findings, a clinical decision was made to admit the patient inpatient setting to have a further evaluated. The patient was admitted to inpatient setting. Hospital Course The patient was started on tapering dose of steroids. The patient was maintained on inhaled bronchodilators both around the clock and on an as needed basis. The patient was also started on maintenance inhalers. The patient responded well to the treatment strategy. The patient apparently has a history of CAD as per the H&P. However, the patient was not noticed to be taking any aspirin. The patient was resumed on beta-blockers once the patient's bronchospasms were better controlled. The patient underwent a room air ABG that did not qualify him for any home oxygen. The patient has history of diastolic heart failure. However the patient had no evidence of any acute exacerbation of diastolic heart failure. Consequently, the patient was not maintained on any diuretics. The patient is a nicotine user and he was maintained on a nicotine patch for the same. The patient was noticed to have normocytic, normochromic anemia. The patient's H&H remained stable. The patient has underlying bipolar disorder. The patient's antipsychotics will be resumed upon discharge. The patient was also complaining of lower back pain and he was requiring opioids during the hospital course. The patient will be discharged home on a short course of oral opioids to be followed up with his primary care physician for further management. The patient has no history of any seizure disorder and the patient is using Depakote for his underlying bipolar disorder. The patient had a stable hospital course and the patient is stable to be discharged. The patient will be discharged to a sober living facility. Discharge Disposition/Plan 1. Take medications as per prescription. 2. Take a regular diet. 3. Follow-up with your primary care physician 1 week. If you do not have a primary care physician, please call Dr. Lemuel Koehler's office. 4. Activities as tolerated. 5. Avoid tobacco. The patient verbalized understanding of his discharge instructions. Case discussed with Dr. Barnes. Home Meds Active Scripts Divalproex Sodium* (Depakote*) 125 Mg Tablet., 125 MG PO QID, #120 TAB Prov:KIKI BOYCE NP 02/19/17 Oxcarbazepine* (Trileptal*) 150 Mg Tablet, 150 MG PO BID, #60 TAB Prov:KIKI BOYCE NP 02/19/17 Hydrocodone/Acetaminophen ([place] 5-325 Tablet) 1 Each Tablet, 1 EACH PO Q6H for PAIN, #10 TAB Prov:KIKI BOYCE NP 02/19/17 Salmeterol Xinaf/Fluticasone* (Advair*) 250-50 Diskus Inhaler, 1 INH INH BID, # 1 INHALER Prov:KIKI BOYCE NP 02/19/17 Prednisone* (Prednisone*) 20 Mg Tab, 40 MG PO DAILY for 2 Days, #2 TAB Prednisone 40 mg p.o. daily 2 days, then Prednisone 20 mg p.o. daily 2 days, then Prednisone 10 mg p.o. daily 2 days, then Prednisone 5 mg p.o. daily 2 days. Prov:KIKI BOYCE NP 02/19/17 Albuterol Sulfate* (Ventolin HFA*) 18 Gm Hfa.aer.ad, 2 PUFF INHALATION Q4H, #1 INHALER Prov:TAL MOSES 01/27/17 Carvedilol* (Carvedilol*) 3.125 Mg Tablet, 3.125 MG PO BID for 30 Days, #60 TAB Prov:TAL MOSES 01/27/17 Discontinued Reported Medications Oxcarbazepine* (Trileptal*) 150 Mg Tablet, PO BID, TAB 06/14/14 Divalproex Sodium* (Depakote*) 125 Mg Tablet., PO QID, TAB 3/26/15 Discontinued Scripts Nicotine* (Nicotine* Patch) 21 mg/day Patch, 1 PATCH TRANSDERM DAILY for 30 Days , #30 PATCH Prov:CHAD DRUMMOND MD 02/01/17 Follow-up Plan Lemuel Koehler MD Specialty: Internal Medicine Office Address: [address] [place], [place] [id number] Office Primary Care Provider Not On Staff Doctor Time spent on discharge: 35 minutes. KIKI BOYCE NP Feb 19, 2017 15:19
== END 2017-02-19 13:30 | disposition home or self-care (01) | DRG 190 ==
LOC: E/R 20:55 → TEL 23:51 → PP2 02-16 18:24
PROVIDERS: ADMIT Internal Medicine; ATTEND Internal Medicine
PROC: 5A09357 Assistance with Respiratory Ventilation, Less than 24 Consecutive Hours, Continuous Positive Airway Pressure (ICD-10-PCS; principal; 2017-02-13)
DX: J44.1 Chronic obstructive pulmonary disease with (acute) exacerbation (principal); J96.01 Acute respiratory failure with hypoxia; J96.02 Acute respiratory failure with hypercapnia; I50.32 Chronic diastolic (congestive) heart failure; F31.9 Bipolar disorder, unspecified; F17.210 Nicotine dependence, cigarettes, uncomplicated; D64.9 Anemia, unspecified; I11.0 Hypertensive heart disease with heart failure; I25.10 Atherosclerotic heart disease of native coronary artery without angina pectoris; Z59.0 Homelessness
CPT/HCPCS: 36415; 36600; 71010; 80048; 80053; 82550; 82553; 82728; 82803; 82962; 83540; 83735; 83880; 84100; 84484; 85025; 87070; 90686; 93005; 94640; 94644; 94660; 94664; 96374; J0456; J1650; J2270; J2920; J2930; J7120; J7512

== ENCOUNTER 2017-02-27 12:50 | Inpatient (IN) | payer MEDICAID ==
[~2017-02-27] VITALS: Ht 177.8 cm; Wt 74.4 kg
[~2017-02-27 12:50] MED LIST changes: +ADV25050 INH; +HYDR-906 PO; -NICO1PAT6 TRANSDERM; +PRED20TA PO
--- NOTE | 2017-02-27 17:42 | ERD ---
ER Documentation Chief Complaint Chief Complaint SENT BY PMD FOR SOB , H/O COPD , ALSO WANTS TO BE SEEN FOR BACK PAIN HPI 62-year-old man with a history of COPD presents with shortness of breath and wheezing 1 day, he denies chest pain, no fevers or chills, no vomiting or diarrhea, no headache or blurry vision. Patient also complains of low back pain similar multiple previous episodes. Patient denies history of intubations. ROS All systems reviewed and are negative except as per history of present illness. Medications Home Meds Active Scripts Divalproex Sodium* (Depakote*) 125 Mg Tablet.dr, 125 MG PO QID, #120 TAB Prov:KIKI BOYCE NP 02/19/17 Oxcarbazepine* (Trileptal*) 150 Mg Tablet, 150 MG PO BID, #60 TAB Prov:KIKI BOYCE NP 02/19/17 Hydrocodone/Acetaminophen ([place] 5-325 Tablet) 1 Each Tablet, 1 EACH PO Q6H for PAIN, #10 TAB Prov:KIKI BOYCE NP 02/19/17 Salmeterol Xinaf/Fluticasone* (Advair*) 250-50 Diskus Inhaler, 1 INH INH BID, # 1 INHALER Prov:KIKI BOYCE NP 02/19/17 Prednisone* (Prednisone*) 20 Mg Tab, 40 MG PO DAILY for 2 Days, #2 TAB Prednisone 40 mg p.o. daily 2 days, then Prednisone 20 mg p.o. daily 2 days, then Prednisone 10 mg p.o. daily 2 days, then Prednisone 5 mg p.o. daily 2 days. Prov:KIKI BOYCE NP 02/19/17 Albuterol Sulfate* (Ventolin HFA*) 18 Gm Hfa.aer.ad, 2 PUFF INHALATION Q4H, #1 INHALER Prov:TAL MOSES 01/27/17 Carvedilol* (Carvedilol*) 3.125 Mg Tablet, 3.125 MG PO BID for 30 Days, #60 TAB Prov:TAL MOSES 01/27/17 Allergies Allergies: Coded Allergies: No Known Allergy (Unverified , 01/30/17) PMhx/Soc COPD, hypertension, bipolar disorder History of Surgery: Yes (HERNIA REPAIR) Anesthesia Reaction: No Hx Neurological Disorder: No Hx Respiratory Disorders: Yes (PNA,COPD) Hx Cardiac Disorders: Yes (HTN, AMI, CHF) Hx Psychiatric Problems: Yes (bipolar, psychotic tendencies) Hx Miscellaneous Medical Probl: No Hx Alcohol Use: Yes Hx Substance Use: No Hx Tobacco Use: No FmHx Family History: No diabetes Physical Exam Vitals Vital Signs Date Time Temp Pulse Resp B/P Pulse Ox O2 Delivery O2 Flow Rate FiO2 02/27/17 18:21 73 100 60 02/27/17 18:04 Nasal Cannula 02/27/17 18:00 83 30 100 Nasal Cannula 2.0 28 02/27/17 12:56 98.2 86 18 146/89 96 Physical Exam GENERAL: Well-developed, appears dehydrated, dyspneic, afebrile HEENT: Dry mucous membranes, pink conjunctiva, no cervical spine tenderness or step-off deformities, no goiter, no jaundice or icterus, extraocular movements intact without pain. No submandibular induration, and no pharyngeal erythema NEURO: Alert and oriented 3, cranial nerves II through XII intact bilaterally, pupils equal round reactive to light, no focal deficits or facial asymmetry, sensation intact distally Strength 5/5 in upper and lower extremities bilaterally CARDIAC: Tachycardic and regular, no murmurs rubs or gallops LUNGS: Dense wheezes bilaterally, no crackles or stridor, poor breath sounds ABDOMEN: Soft nontender, no guarding, no rigidity, no rebound, no psoas sign no obturator sign. Normoactive bowel sounds SKIN: Warm and dry to touch, no abrasions, contusions, or hematomas, no lacerations, no ecchymosis, no target lesions, and without ulcers EXTREMITIES: No clubbing cyanosis, 1+ pitting edema in the lower extremities bilaterally, calves are bilaterally symmetrical, no Homans sign, no popliteal cord sign. Distal pulses equal and bilateral PSYCH: Normal affect without agitation or irritability Result Diagram: 02/27/17180302/27/171803 Results 24 hrs Laboratory Tests Test 02/27/17 18:04 White Blood Count 20.810^3/ul Red Blood Count 4.3710^6/ul Hemoglobin 13.8g/dl Hematocrit 40.9% Mean Corpuscular Volume 93.6fl Mean Corpuscular Hemoglobin 31.6pg Mean Corpuscular Hemoglobin Concent 33.7g/dl Red Cell Distribution Width 16.2% Platelet Count 34786^3/UL Mean Platelet Volume 11.3fl Neutrophils % % Segmented Neutrophils % (Manual) 61% Lymphocytes % % Lymphocytes % (Manual) 30% Monocytes % % Monocytes % (Manual) 6% Eosinophils % % Eosinophils % (Manual) 3% Basophils % % Nucleated Red Blood Cells % 0.0/100WBC Neutrophils # 10^3/ul Absolute Lymphocytes (Manual) 6.210^3/ul Lymphocytes # 10^3/ul Monocytes # 10^3/ul Absolute Monocytes (Manual) 1.210^3/ul Eosinophils # 10^3/ul Basophils # 10^3/ul Nucleated Red Blood Cells # 10^3/ul Platelet Estimate NORMAL Polychromasia 1+ Anisocytosis 1+ Macrocytosis 1+ Sodium Level 136mmol/L Potassium Level 4.2mmol/L Chloride Level 99mmol/L Carbon Dioxide Level 32mmol/L Anion Gap 9 Blood Urea Nitrogen 14mg/dl Creatinine 0.57mg/dl Glucose Level 75mg/dl Calcium Level 9.0mg/dl Total Bilirubin 0.4mg/dl Direct Bilirubin 0.00mg/dl Indirect Bilirubin 0.4mg/dl Aspartate Amino Transf (AST/SGOT) 30IU/L Alanine Aminotransferase (ALT/SGPT) 32IU/L Alkaline Phosphatase 118IU/L Troponin I Pending B-Type Natriuretic Peptide Pending Total Protein 6.9g/dl Albumin 3.7g/dl Globulin 3.20g/dl Albumin/Globulin Ratio 1.15 Lipase 239U/L Current Medications Medications (Trade) Dose Ordered Sig/Jennifer Route PRN Reason Start Time Stop Time Status Last Admin Dose Admin Sodium Chloride (NS) 500 ml @ 500 mls/hr Q1H STAT IV 02/27/17 17:49 02/27/17 18:48 DC 02/27/17 18:16 Albuterol (Proventil 0.5% (Neb)) 10 mg ONCE STAT INH 02/27/17 17:49 02/27/17 17:51 DC 02/27/17 17:59 Ipratropium [place] (Atrovent 0.02% (Neb)) 1 mg ONCE STAT INH 02/27/17 17:49 02/27/17 17:51 DC 02/27/17 17:49 Methylprednisolone Sodium Succinate 125 mg 125 mg ONCE STAT IV 02/27/17 17:49 02/27/17 17:51 DC 02/27/17 18:15 Magnesium Sulfate 50 ml @ 25 mls/hr ONCE STAT IVPB 02/27/17 17:49 02/27/17 19:48 02/27/17 18:16 Levofloxacin/ Dextrose (Levaquin 750 Mg/ D5W 150 ml (Pmx)) 150 ml @ 100 mls/hr ONCE ONCE IVPB 02/27/17 19:00 02/27/17 20:29 02/27/17 18:59 Procedures/MDM IV line was established patient was placed on manager cardiac cath rhythm strip revealed a sinus rhythm at about 100 bpm with upright P and T waves. Patient was afebrile I placed the patient on BiPAP for respiratory support. I administered 500 cc normal saline IV 1, albuterol 10 mg via nebulizer, ipratropium 1 mg via nebulizer, methylprednisolone 125 mg IV 1, magnesium 2 g IV EKG performed, read by me: 78 bpm, normal sinus rhythm, normal axis, no acute ST segment changes, narrow QRS complex, with good R-wave progression in precordial leads. Chest X-ray 1V Interpreted by me: Soft Tissue: Atelectatic changes bilaterally, no acute infiltrates Bones: No acute abnormalities Mediastinum/Cardiac Silhouette/Lungs: No acute abnormalities Critical Care: Time: 38 minutes, this was time separate from other billable procedures. Treatments/Evaluations: Close monitoring and treatment of unstable vital signs, cardiorespiratory, and neurologic status, while maintaining tight balance of fluid, respiratory, and cardiac interventions. CBC reveals a leukocytosis of 21, electrolytes were unremarkable, liver function tests normal, troponin negative, BNP low. Patient was afebrile and I do not suspect sepsis although blood culture was drawn and I administered levofloxacin 750 mg IV 1. Patient will be admitted to telemetry setting for continued medical management and bronchodilator therapy. Departure Diagnosis: Primary Impression: Acute respiratory failure Respiratory failure complication: hypoxia and hypercapnia Qualified Code: J96.01 - Acute respiratory failure with hypoxia and hypercapnia Additional Impressions: COPD (chronic obstructive pulmonary disease) COPD type: COPD with acute exacerbation Qualified Code: J44.1 - Chronic obstructive pulmonary disease with acute exacerbation Leukocytosis Leukocytosis type: lymphocytosis Qualified Code: D72.820 - Lymphocytosis Condition: ADRIANA Phipps MD Feb 27, 2017 17:42
[2017-02-27] MEDS ORDERED: METHYLPREDNISOLONE 125 MG INJ IV STA (17:49)
[2017-02-27] MEDS ORDERED: SOD CHLORIDE 0.9% 500 ML IV STA (17:49)
[2017-02-27] MEDS ORDERED: MAGNESIUM SULFATE 2 GM/50 ML 50 ML IVPB STA (17:49)
[2017-02-27] MEDS ORDERED: ALBUTEROL 0.5% (NEB) 2.5 MG/0.5 ML AMP INH STA (17:49)
[2017-02-27] MEDS ORDERED: IPRATROPIUM (NEB) 0.5 MG/2.5 ML AMP INH STA (17:49)
[2017-02-27 18:26] LABS: ABNORMAL IP MESSAGE 1; HEMATOCRIT 40.9 % (42.0-52.0); HEMOGLOBIN 13.8 g/dl (14.0-18.0); MEAN CORPUSCULAR HEMOGLOBIN 31.6 pg (29.0-33.0); MEAN CORPUSCULAR HGB CONC 33.7 g/dl (32.0-37.0); MEAN CORPUSCULAR VOLUME 93.6 fl (82.0-101.0); MEAN PLATELET VOLUME 11.3 fl (7.4-10.4); PLATELET COUNT 242 10^3/UL (140-415); POSITIVE DIFF @See below; RED BLOOD COUNT 4.37 10^6/ul (4.70-6.10); RED CELL DISTRIBUTION WIDTH 16.2 % (11.5-14.5); WHITE BLOOD COUNT 20.8 10^3/ul (4.8-10.8)
--- NOTE | 2017-02-27 18:30 | RADRPT ---
PROCEDURE: XR Chest. CLINICAL INDICATION: Shortness of breath TECHNIQUE: A frontal view of the chest was performed. COMPARISON: February 13, 2017 FINDINGS: The cardiomediastinal silhouette is within normal limits. The lungs are clear. No signs of pleural f luid or pneumothorax are seen. There is stable elevation of the left hemidiaphragm denis The osseous structures and soft tissues are unremarkable. IMPRESSION: No evidence for active cardiopulmonary disease. Stable elevation of the left hemidiaphragm. No inter natasha change. RPTAT: QQ .Cindi Cox MD, MD Date Time Electronically viewed and signed by .Cindi Cox MD, MD on 02/27/2017 18:29 .F/
[2017-02-27 18:50] LABS: ALANINE AMINOTRANSFERASE 32 IU/L (13-69); ALBUMIN 3.7 g/dl (3.3-4.9); ALBUMIN/GLOBULIN RATIO 1.15; ALKALINE PHOSPHATASE 118 IU/L (42-121); ANION GAP 9 (8-16); ASPARTATE AMINO TRANSFERASE 30 IU/L (15-46); BILIRUBIN,INDIRECT 0.4 mg/dl (0-1.1); BILIRUBIN,TOTAL 0.4 mg/dl (0.2-1.3); BLOOD UREA NITROGEN 14 mg/dl (7-20); CARBON DIOXIDE 32 mmol/L (21-31); CHLORIDE 99 mmol/L (97-110); CREATININE 0.57 mg/dl (0.61-1.24); GLUCOSE 75 mg/dl (70-220); POTASSIUM 4.2 mmol/L (3.5-5.1); SODIUM 136 mmol/L (135-144); TOTAL PROTEIN 6.9 g/dl (6.1-8.1)
[2017-02-27] MEDS ORDERED: LEVOFLOXACIN 750MG/D5W (PMX) 150 ML IVPB ONE (19:00)
[2017-02-27 19:02] LABS: ANISOCYTOSIS 1+ (0-0); B-TYPE NATRIURETIC PEPTIDE 193 PG/ML (0-125); EOSINOPHILS % (M) 3 % (0-7); MONOCYTES % (M) 6 % (0-11); PLATELET ESTIMATE NORMAL; POLYCHROMASIA 1+ (0-0)
[2017-02-27 19:04] LABS: TROPONIN-I < 0.012 ng/ml (0.00-0.12)
[2017-02-27] MEDS ORDERED: NICOTINE (21 MG/24 HR) PATCH TRANSDERM ONE (20:30)
[2017-02-27] MEDS: morphine 4 MG/ML VIAL IV PRN (23:49)
[2017-02-28] VITALS (11 sets, daily range): BP systolic 114–141; BP diastolic 58–94; PULSE 72–92; RESP 19–22; Ht 177.8 cm; Wt 74.4 kg
[2017-02-28] MEDS ORDERED: ALBUTEROL HFA 8 GM INHALER INH PRN (06:30)
[2017-02-28] MEDS ORDERED: ACETAMINOPHEN 325 MG TAB PO PRN (06:30)
[2017-02-28] MEDS ORDERED: LORAZEPAM 0.5 MG TAB PO PRN (06:30)
[2017-02-28] MEDS ORDERED: NACL 0.9% 3 ML SYG IV SCH (06:30)
[2017-02-28] MEDS ORDERED: ONDANSETRON 4 MG INJ IV PRN (06:30)
[2017-02-28] MEDS: morphine 4 MG/ML VIAL IV PRN ×3 (06:44→22:06)
--- NOTE | 2017-02-28 06:48 | HP ---
Date/Time of Note Date/Time of Note DATE: 02/28/17 TIME: 06:38 Assessment/Plan VTE Prophylaxis VTE Prophylaxis Intervention: heparin Lines/Catheters Urinary Cath still in place: No Assessment/Plan Assessment/Plan ASSESSMENT 62-year-old male with past medical history of COPD, bipolar disorder, hypertension, and active nicotine use who presented to the emergency room from because of shortness of breath and wheezing likely from COPD exacerbation PLAN Supplemental oxygen, bronchodilators, inhaled and IV steroid, IV antibiotic. Note that patient presented with a WBC of 21,000 but he has been on prednisone. Continue home medications adjustment as needed Pain management for chronic back pain. Note that there is no alarming sign HPI/ROS Admit Date/Time Admit Date/Time Feb 27, 2017 at 19:00 Hx of Present Illness This is a 62-year-old male with past medical history of COPD, bipolar disorder, hypertension, and nicotine use and illicit drug use who presented to the emergency room from because of shortness of breath and wheezing. He also complains of back pain. He said he initially actually decided to come to the hospital because of chronic back pain but then he said he started becoming short of breath which felt like being "suffocated". He said he does not have money to buy pain medications for his chronic back pain. Deformity on his upper back which causes chronic pain. He denied recent trauma. Pain does not radiate to his lower extremities and denied urinary or bladder incontinence. Patient is currently on probation related to drug use and has a brace over his leg. He said the last time he used meds was last year. 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 Patient was admitted here recently and was discharged a week ago after he was sent from a sober living facility for shortness of breath. He was treated for COPD exacerbation. Patient is now returning back complaining of shortness of breath. During his recent hospitalization a 2D echo showed only a stage I diastolic dysfunction with EF of 50%. An ABG at that time was done to see if he can qualify for home oxygen but he did not meet the criteria. When he presented to the ER at this time, he had an initial oxygen saturation of 100% on room air. Lab shows a WBC of 21,000. Chest x-ray was no acute findings. PMH/Family/Social Past Surgical History Past Surgical Hx: no surgical history Social History Smoking Status: Current every day smoker Exam/Review of Systems Vital Signs Vitals Vital Signs Date Time Temp Pulse Resp B/P Pulse Ox O2 Delivery O2 Flow Rate FiO2 02/28/17 04:12 98.2 19 19 125/80 97 02/28/17 00:05 Nasal Cannula 2.0 02/27/17 18:21 60 Exam Constitutional: alert, oriented Head: atraumatic, normocephalic Eyes: EOMI, PERRL Respiratory: wheezing Cardiovascular: nl pulses, regular rate and rhythm Gastrointestinal: non-tender, soft Extremities: normal pulses Labs Result Diagram: 02/27/17180302/27/171803 Medications Medications Current Medications Morphine Sulfate (morphine) 3 mg Q4H PRN IV PAIN Last administered on t 23:49; Admin Dose 3 MG; Start 02/28/17 at 00:00 Lorazepam (Ativan) 0.5 mg Q8H PRN PO ANXIETY; Start 02/28/17 at 06:30; Status UNV Ondansetron HCl (Zofran Inj) 4 mg Q6H PRN IV NAUSEA AND/OR VOMITING; Start 01/05 at 06:30; Status UNV Methylprednisolone Sodium Succinate (Solu-Medrol) 60 mg Q12 IV ; Start at 09:00; Status UNV Acetaminophen (Tylenol Tab) 650 mg Q6H PRN PO PAIN LEVEL 1-3 OR FEVER; Start 02/28/17 at 06:30; Status UNV Heparin Sodium (Porcine) (Heparin (5000 Units/0.5 ml)) 5,000 unit Q12 SC ; Start 02/28/17 at 09:00; Status UNV Albuterol (Proventil (O.r. Use Only)) 2 puff Q4H PRN INH SHORTNESS OF BREATH; Start 02/28/17 at 06:30; Status UNV Carvedilol (Coreg) 3.125 mg BID PO ; Start 02/28/17 at 09:00; Status UNV Divalproex Sodium (Depakote) 125 mg QID PO ; Start 02/28/17 at 09:00; Status UNV Acetaminophen/ Hydrocodone Bitart ([place] (5/325)) 1 tab Q6H PRN PO PAIN; Start 02/28/17 at 06:30; Status UNV Oxcarbazepine (Trileptal) 150 mg BID PO ; Start 02/28/17 at 09:00; Status UNV Salmeterol Xinafoate/ Fluticasone (Advair 250/50 Diskus) 1 inh BID INH ; Start 02/28/17 at 09:00; Status UNV MARISABEL RIVERS MD Feb 28, 2017 06:48
[2017-02-28 07:17] LABS: ABNORMAL IP MESSAGE 1; BASOPHILS % 0.3 % (0.0-2.0); HEMATOCRIT 39.2 % (42.0-52.0); HEMOGLOBIN 13.2 g/dl (14.0-18.0); LYMPHOCYTES # 0.6 10^3/ul (0.8-2.9); LYMPHOCYTES % 4.9 % (15.0-51.0); MEAN CORPUSCULAR HEMOGLOBIN 31.5 pg (29.0-33.0); MEAN CORPUSCULAR HGB CONC 33.7 g/dl (32.0-37.0); MEAN CORPUSCULAR VOLUME 93.6 fl (82.0-101.0); MEAN PLATELET VOLUME 11.3 fl (7.4-10.4); MONOCYTE # 0.2 10^3/ul (0.3-0.9); MONOCYTES % 1.8 % (0.0-11.0); NEUTROPHIL # 10.5 10^3/ul (1.6-7.5); NEUTROPHILS % 88.3 % (39.0-77.0); PLATELET COUNT 197 10^3/UL (140-415); POSITIVE DIFF @See below; RED BLOOD COUNT 4.19 10^6/ul (4.70-6.10); RED CELL DISTRIBUTION WIDTH 16.2 % (11.5-14.5); WHITE BLOOD COUNT 11.9 10^3/ul (4.8-10.8)
[2017-02-28 07:38] LABS: ALBUMIN 3.4 g/dl (3.3-4.9); ALBUMIN/GLOBULIN RATIO 1.25; BILIRUBIN,INDIRECT 0.4 mg/dl (0-1.1); BILIRUBIN,TOTAL 0.4 mg/dl (0.2-1.3); CALCIUM 8.8 mg/dl (8.4-10.2); CREATININE 0.55 mg/dl (0.61-1.24); POTASSIUM 4.5 mmol/L (3.5-5.1); TOTAL PROTEIN 6.1 g/dl (6.1-8.1)
[2017-02-28] MEDS: METHYLPREDNISOLONE 125 MG INJ IV SCH ×2 (08:35→20:28)
[2017-02-28] MEDS: OXCARBAZEPINE 150 MG TAB PO SCH ×2 (08:35→20:28)
[2017-02-28] MEDS: DIVALPROEX (EC) 125 MG TAB PO SCH ×4 (08:35→20:28)
[2017-02-28] MEDS: SALMETEROL/FLUTICASONE 250/50 INHA INH SCH ×2 (08:35→20:28)
[2017-02-28] MEDS: LEVOFLOXACIN 500MG/D5W (PMX) 100 ML IVPB SCH (08:35)
[2017-02-28] MEDS: HEPARIN 5,000 UNIT/0.5 ML VIAL SC SCH ×2 (08:36→20:30)
[2017-02-28] MEDS: ALBUTEROL/IPRATROPIUM (NEB) 3 ML AMP HHN PRN ×2 (14:56→19:25)
[2017-03-01] VITALS (11 sets, daily range): BP systolic 125–151; BP diastolic 79–94; PULSE 79–101; RESP 18–20
[2017-03-01] MEDS: ALBUTEROL/IPRATROPIUM (NEB) 3 ML AMP HHN PRN (00:22)
[2017-03-01 06:58] LABS: ABNORMAL IP MESSAGE 1; BASOPHILS % 0.1 % (0.0-2.0); HEMATOCRIT 37.4 % (42.0-52.0); HEMOGLOBIN 12.7 g/dl (14.0-18.0); LYMPHOCYTES # 0.5 10^3/ul (0.8-2.9); LYMPHOCYTES % 2.6 % (15.0-51.0); MEAN CORPUSCULAR HEMOGLOBIN 32.1 pg (29.0-33.0); MEAN CORPUSCULAR VOLUME 94.4 fl (82.0-101.0); MEAN PLATELET VOLUME 11.5 fl (7.4-10.4); MONOCYTE # 0.4 10^3/ul (0.3-0.9); MONOCYTES % 1.7 % (0.0-11.0); NEUTROPHIL # 19.4 10^3/ul (1.6-7.5); NEUTROPHILS % 93.5 % (39.0-77.0); PLATELET COUNT 187 10^3/UL (140-415); POSITIVE DIFF @See below; RED BLOOD COUNT 3.96 10^6/ul (4.70-6.10); RED CELL DISTRIBUTION WIDTH 16.6 % (11.5-14.5); WHITE BLOOD COUNT 20.8 10^3/ul (4.8-10.8)
[2017-03-01 07:24] LABS: CALCIUM 9.1 mg/dl (8.4-10.2); CREATININE 0.58 mg/dl (0.61-1.24); MAGNESIUM 1.9 mg/dl (1.7-2.5); PHOSPHORUS 2.6 mg/dl (2.5-4.9); POTASSIUM 4.1 mmol/L (3.5-5.1)
[2017-03-01] MEDS: LEVOFLOXACIN 500MG/D5W (PMX) 100 ML IVPB SCH (08:56)
[2017-03-01] MEDS: SALMETEROL/FLUTICASONE 250/50 INHA INH SCH ×2 (08:56→22:09)
[2017-03-01] MEDS: DIVALPROEX (EC) 125 MG TAB PO SCH ×4 (08:57→22:09)
[2017-03-01] MEDS: HEPARIN 5,000 UNIT/0.5 ML VIAL SC SCH ×2 (08:57→22:11)
[2017-03-01] MEDS: OXCARBAZEPINE 150 MG TAB PO SCH ×2 (08:57→22:09)
[2017-03-01] MEDS: METHYLPREDNISOLONE 125 MG INJ IV SCH ×2 (08:57→22:09)
[2017-03-01] MEDS: HYDROCODONE/APAP (5/325) TAB PO PRN ×2 (09:10→18:44)
[2017-03-01] MEDS ORDERED: ALBUTEROL/IPRATROPIUM (NEB) 3 ML AMP ONE (11:39)
[2017-03-01] MEDS: ALBUTEROL/IPRATROPIUM (NEB) 3 ML AMP HHN SCH ×3 (11:42→20:40)
--- NOTE | 2017-03-01 14:41 | PN ---
Date/Time of Note Date/Time of Note DATE: 03/01/17 TIME: 14:39 Assessment/Plan VTE Prophylaxis VTE Prophylaxis Intervention: LMWH Lines/Catheters IV C[facility] Type [facility]from [facility] Saline Lock Urinary Cath still in place: No Assessment/Plan Chief Complaint/Hosp Course 62 yo male with h/o tobacco use d/o, COPD presenting with acute on chronic COPD exacerbation COPD exacerbation: - Contniue bronchodilators and steroids, abx - Improving nicely Tobacco use d/o: - Extensively counseled on cessation - NRT patch while in house Discharge to self care likely tomorrow Problems: Subjective 24 Hr Interval Summary Free Text/Dictation Feeling improved since admission, still a bit dypsneic though he says, no entirely back to baseline Exam/Review of Systems Vital Signs Vitals Vital Signs Date Time Temp Pulse Resp B/P Pulse Ox O2 Delivery O2 Flow Rate FiO2 03/01/17 14:03 2.0 03/01/17 12:09 88 03/01/17 11:53 97.9 19 142/93 95 03/01/17 11:46 Nasal Cannula 28 Intake and Output 02/28/17 02/28/17 03/01/17 15:00 23:00 07:00 Intake Total 100 ml 960 ml 500 ml Balance 100 ml 960 ml 500 ml Exam Breathing comfortably Scattered expiratory wheezing b/l Nonlabored Results Result Diagram: 03/01/17 0638 03/01/17 0638 Results 24 hrs Laboratory Tests Test 03/01/17 06:38 White Blood Count 20.8 #H Red Blood Count 3.96 L Hemoglobin 12.7 L Hematocrit 37.4 L Mean Corpuscular Volume 94.4 Mean Corpuscular Hemoglobin 32.1 Mean Corpuscular Hemoglobin Concent 34.0 Red Cell Distribution Width 16.6 H Platelet Count 187 Mean Platelet Volume 11.5 H Neutrophils % 93.5 H Lymphocytes % 2.6 L Monocytes % 1.7 Eosinophils % 0.0 Basophils % 0.1 Nucleated Red Blood Cells % 0.0 Neutrophils # 19.4 H Lymphocytes # 0.5 L Monocytes # 0.4 Eosinophils # 0.0 Basophils # 0.0 Nucleated Red Blood Cells # 0.0 Sodium Level 137 Potassium Level 4.1 Chloride Level 99 Carbon Dioxide Level 32 H Anion Gap 10 Blood Urea Nitrogen 17 Creatinine 0.58 L Glucose Level 199 Calcium Level 9.1 Phosphorus Level 2.6 Magnesium Level 1.9 Medications Medications Current Medications Morphine Sulfate (morphine) 3 mg Q4H PRN IV PAIN Last administered on 22:06; Admin Dose 3 MG; Start 02/28/17 at 00:00 Lorazepam (Ativan) 0.5 mg Q8H PRN PO ANXIETY; Start 02/28/17 at 06:30 Ondansetron HCl (Zofran Inj) 4 mg Q6H PRN IV NAUSEA AND/OR VOMITING; Start 01/05 at 06:30 Methylprednisolone Sodium Succinate (Solu-Medrol) 60 mg Q12 IV Last administered on 03/01/17 08:57; Admin Dose 60 MG; Start 02/28/17 at 09:00 Acetaminophen (Tylenol Tab) 650 mg Q6H PRN PO PAIN LEVEL 1-3 OR FEVER; Start 02/28/17 at 06:30 Heparin Sodium (Porcine) (Heparin (5000 Units/0.5 ml)) 5,000 unit Q12 SC Last administered on 03/01/17 08:57; Admin Dose 5,000 UNIT; Start 02/28/17 at 09: 00 Albuterol (Ventolin Hfa) 2 puff Q4H PRN INH SHORTNESS OF BREATH; Start at 06:30 Divalproex Sodium (Depakote) 125 mg QID PO Last administered on 03/01/17 13: 40; Admin Dose 125 MG; Start 02/28/17 at 09:00 Acetaminophen/ Hydrocodone Bitart ([place] (5/325)) 1 tab Q6H PRN PO PAIN Last administered on 03/01/17 09:10; Admin Dose 1 TAB; Start 02/28/17 at 06:30 Oxcarbazepine (Trileptal) 150 mg BID PO Last administered on 03/01/17 08:57; Admin Dose 150 MG; Start 02/28/17 at 09:00 Salmeterol Xinafoate/ Fluticasone 1 inh 1 inh BID INH Last administered on 08:56; Admin Dose 1 INH; Start 02/28/17 at 09:00 Levofloxacin/ Dextrose (Levaquin 500mg/ D5W 100 ml (Pmx)) 100 ml @ 100 mls/hr Q24H IVPB Last administered on 03/01/17t 08:56; Admin Dose 100 MLS/HR; Start 02/28/17 at 07:00 BARBARA TINAJERO MD Mar 01, 2017 14:41
[2017-03-02] VITALS (12 sets, daily range): BP systolic 125–151; BP diastolic 65–95; PULSE 77–100; RESP 18–20
[2017-03-02] MEDS: ALBUTEROL/IPRATROPIUM (NEB) 3 ML AMP HHN SCH ×6 (01:00→21:32)
[2017-03-02] MEDS: LEVOFLOXACIN 500MG/D5W (PMX) 100 ML IVPB SCH (06:32)
[2017-03-02] MEDS: OXCARBAZEPINE 150 MG TAB PO SCH ×2 (08:42→21:53)
[2017-03-02] MEDS: METHYLPREDNISOLONE 125 MG INJ IV SCH ×2 (08:42→21:53)
[2017-03-02] MEDS: HEPARIN 5,000 UNIT/0.5 ML VIAL SC SCH ×2 (08:42→23:15)
[2017-03-02] MEDS: DIVALPROEX (EC) 125 MG TAB PO SCH ×4 (08:42→21:53)
[2017-03-02] MEDS: HYDROCODONE/APAP (5/325) TAB PO PRN ×3 (08:42→23:19)
[2017-03-02] MEDS: SALMETEROL/FLUTICASONE 250/50 INHA INH SCH ×2 (08:42→21:53)
--- NOTE | 2017-03-02 15:31 | PN ---
Date/Time of Note Date/Time of Note DATE: 03/02/17 TIME: 15:30 Assessment/Plan VTE Prophylaxis VTE Prophylaxis Intervention: LMWH Lines/Catheters IV Catheter Type (from Nrs): Saline Lock Urinary Cath still in place: No Assessment/Plan Chief Complaint/Hosp Course 62 yo male with h/o tobacco use d/o, COPD presenting with acute on chronic COPD exacerbation COPD exacerbation: - Continue bronchodilators and steroids, abx course - Improving nicely Tobacco use d/o: - Extensively counseled on cessation - NRT patch while in house Discharge to self care likely tomorrow Problems: Subjective 24 Hr Interval Summary Free Text/Dictation Still feels wheezy, SOB, not ready to go yet Exam/Review of Systems Vital Signs Vitals Vital Signs Date Time Temp Pulse Resp B/P Pulse Ox O2 Delivery O2 Flow Rate FiO2 03/02/17 13:20 2.0 03/02/17 13:02 79 20 97 Nasal Cannula 28 03/02/17 12:10 97.6 140/83 Intake and Output 03/01/17 03/01/17 03/02/17 15:00 23:00 07:00 Intake Total 100 ml 1018 ml 120 ml Balance 100 ml 1018 ml 120 ml Exam Nonlabored Lungs wiht scattered expiratory wheeze Results Result Diagram: 03/01/17 0638 03/01/17 0638 Medications Medications Current Medications Morphine Sulfate (morphine) 3 mg Q4H PRN IV PAIN Last administered on 22:06; Admin Dose 3 MG; Start 02/28/17 at 00:00 Lorazepam (Ativan) 0.5 mg Q8H PRN PO ANXIETY; Start 02/28/17 at 06:30 Ondansetron HCl (Zofran Inj) 4 mg Q6H PRN IV NAUSEA AND/OR VOMITING; Start 01/05 at 06:30 Methylprednisolone Sodium Succinate (Solu-Medrol) 60 mg Q12 IV Last administered on 03/02/17 08:42; Admin Dose 60 MG; Start 02/28/17 at 09:00 Acetaminophen (Tylenol Tab) 650 mg Q6H PRN PO PAIN LEVEL 1-3 OR FEVER; Start 02/28/17 at 06:30 Heparin Sodium (Porcine) (Heparin (5000 Units/0.5 ml)) 5,000 unit Q12 SC Last administered on 03/02/17 08:42; Admin Dose 5,000 UNIT; Start 02/28/17 at 09: 00 Albuterol (Ventolin Hfa) 2 puff Q4H PRN INH SHORTNESS OF BREATH; Start at 06:30 Divalproex Sodium (Depakote) 125 mg QID PO Last administered on 03/02/17 13: 12; Admin Dose 125 MG; Start 02/28/17 at 09:00 Acetaminophen/ Hydrocodone Bitart ([place] (5/325)) 1 tab Q6H PRN PO PAIN Last administered on 03/02/17 08:42; Admin Dose 1 TAB; Start 02/28/17 at 06:30 Oxcarbazepine (Trileptal) 150 mg BID PO Last administered on 03/02/17 08:42; Admin Dose 150 MG; Start 02/28/17 at 09:00 Salmeterol Xinafoate/ Fluticasone 1 inh 1 inh BID INH Last administered on 08:42; Admin Dose 1 INH; Start 02/28/17 at 09:00 Levofloxacin/ Dextrose (Levaquin 500mg/ D5W 100 ml (Pmx)) 100 ml @ 100 mls/hr Q24H IVPB Last administered on 03/02/17 06:32; Admin Dose 100 MLS/HR; Start 02/28/17 at 07:00 BARBARA TINAJERO MD Mar 02, 2017 15:31
[2017-03-03] MEDS: NICOTINE (14 MG/24 HR) PATCH TRANSDERM SCH (00:18)
[2017-03-03] MEDS: ALBUTEROL/IPRATROPIUM (NEB) 3 ML AMP HHN SCH ×6 (01:00→20:22)
[2017-03-03 02:28] VITALS: BP 131/85; RESP 18
[2017-03-03 07:38] VITALS: BP 135/84; RESP 18
[2017-03-03] MEDS: OXCARBAZEPINE 150 MG TAB PO SCH ×2 (09:03→20:46)
[2017-03-03] MEDS: HYDROCODONE/APAP (5/325) TAB PO PRN (09:03)
[2017-03-03] MEDS: DIVALPROEX (EC) 125 MG TAB PO SCH ×4 (09:03→20:46)
[2017-03-03] MEDS: SALMETEROL/FLUTICASONE 250/50 INHA INH SCH ×2 (09:04→20:46)
[2017-03-03] MEDS: METHYLPREDNISOLONE 125 MG INJ IV SCH ×2 (09:04→20:46)
[2017-03-03] MEDS: LEVOFLOXACIN 500MG/D5W (PMX) 100 ML IVPB SCH (09:05)
[2017-03-03] MEDS: HEPARIN 5,000 UNIT/0.5 ML VIAL SC SCH ×2 (09:07→20:47)
[2017-03-03 14:00] VITALS: BP 136/76; RESP 20
--- NOTE | 2017-03-03 16:41 | PN ---
Date/Time of Note Date/Time of Note DATE: 03/03/17 TIME: 16:40 Assessment/Plan VTE Prophylaxis VTE Prophylaxis Intervention: LMWH Lines/Catheters IV [facility] Saline Lock Urinary Cath still in place: No Assessment/Plan Chief Complaint/Hosp Course 62 yo male with h/o tobacco use d/o, COPD presenting with acute on chronic COPD exacerbation COPD exacerbation: - Continue bronchodilators and steroids, abx course - Improving nicely Tobacco use d/o: - Extensively counseled on cessation - NRT patch while in house Discharge to self care tomorrow Problems: Subjective 24 Hr Interval Summary Free Text/Dictation Feeling SOB, asking to stay another day Exam/Review of Systems Vital Signs Vitals Vital Signs Date Time Temp Pulse Resp B/P Pulse Ox O2 Delivery O2 Flow Rate FiO2 03/03/17 14:00 98.8 68 20 136/76 96 03/03/17 13:27 Nasal Cannula 2.0 03/02/17 16:21 28 Intake and Output 03/02/17 03/02/17 03/03/17 15:00 23:00 07:00 Intake Total 100 ml 1080 ml 960 ml Balance 100 ml 1080 ml 960 ml Exam Appears comfortable Lungs clear, no more wheeze Results Result Diagram: 03/01/1738 03/01/17 0638 Medications Medications Current Medications Morphine Sulfate (morphine) 3 mg Q4H PRN IV PAIN Last administered on 22:06; Admin Dose 3 MG; Start 02/28/17 at 00:00 Lorazepam (Ativan) 0.5 mg Q8H PRN PO ANXIETY; Start 02/28/17 at 06:30 Ondansetron HCl (Zofran Inj) 4 mg Q6H PRN IV NAUSEA AND/OR VOMITING; Start 01/05 at 06:30 Methylprednisolone Sodium Succinate (Solu-Medrol) 60 mg Q12 IV Last administered on 03/03/17 09:04; Admin Dose 60 MG; Start 02/28/17 at 09:00 Acetaminophen (Tylenol Tab) 650 mg Q6H PRN PO PAIN LEVEL 1-3 OR FEVER; Start 02/28/17 at 06:30 Heparin Sodium (Porcine) (Heparin (5000 Units/0.5 ml)) 5,000 unit Q12 SC Last administered on 03/03/17 09:07; Admin Dose 5,000 UNIT; Start 02/28/17 at 09: 00 Albuterol (Ventolin Hfa) 2 puff Q4H PRN INH SHORTNESS OF BREATH; Start at 06:30 Divalproex Sodium (Depakote) 125 mg QID PO Last administered on 03/03/17 13: 09; Admin Dose 125 MG; Start 02/28/17 at 09:00 Acetaminophen/ Hydrocodone Bitart ([place] (5/325)) 1 tab Q6H PRN PO PAIN Last administered on 03/03/17 09:03; Admin Dose 1 TAB; Start 02/28/17 at 06:30 Oxcarbazepine (Trileptal) 150 mg BID PO Last administered on 03/03/17 09:03; Admin Dose 150 MG; Start 02/28/17 at 09:00 Salmeterol Xinafoate/ Fluticasone 1 inh 1 inh BID INH Last administered on 09:04; Admin Dose 1 INH; Start 02/28/17 at 09:00 Levofloxacin/ Dextrose (Levaquin 500mg/ D5W 100 ml (Pmx)) 100 ml @ 100 mls/hr Q24H IVPB Last administered on 03/03/17 09:05; Admin Dose 100 MLS/HR; Start 02/28/17 at 07:00 Nicotine (Nicoderm 14 Mg/ 24hr) 1 patch DAILY TRANSDERM Last administered on 00:18; Admin Dose 1 PATCH; Start 03/03/17 at 00:00 BARBARA TINAJERO MD Mar 03, 2017 16:41
[2017-03-03 20:45] VITALS: BP 137/86; RESP 18
[2017-03-04] MEDS: ALBUTEROL/IPRATROPIUM (NEB) 3 ML AMP HHN SCH ×6 (00:55→20:14)
[2017-03-04] MEDS: NICOTINE (14 MG/24 HR) PATCH TRANSDERM SCH (01:51)
[2017-03-04 03:13] VITALS: BP 147/94; RESP 18
[2017-03-04] MEDS: LEVOFLOXACIN 500MG/D5W (PMX) 100 ML IVPB SCH (06:07)
[2017-03-04 07:25] VITALS: BP 147/98; RESP 18
[2017-03-04] MEDS: DIVALPROEX (EC) 125 MG TAB PO SCH ×4 (09:12→21:06)
[2017-03-04] MEDS: OXCARBAZEPINE 150 MG TAB PO SCH ×2 (09:12→21:06)
[2017-03-04] MEDS: METHYLPREDNISOLONE 125 MG INJ IV SCH ×2 (09:12→21:06)
[2017-03-04] MEDS: HEPARIN 5,000 UNIT/0.5 ML VIAL SC SCH ×2 (09:13→21:08)
[2017-03-04] MEDS: HYDROCODONE/APAP (5/325) TAB PO PRN (09:17)
[2017-03-04] MEDS: SALMETEROL/FLUTICASONE 250/50 INHA INH SCH ×2 (09:18→21:05)
[2017-03-04] MEDS ORDERED: NS3ML IV (13:47)
--- NOTE | 2017-03-04 13:53 | PDOCDIS ---
Discharge Instructions DIAGNOSIS Discharge Diagnosis COPD exacerbation CONDITION Patient Condition: Fair FOLLOW UP/APPOINTMENTS Follow-up Plan Use your inhaler daily as prescribed. Use albeterol if you feel acutely short of breath. Return to the hospital if you have any worsening of your breathing or any other concerning symptoms. BARBARA TINAJERO MD Mar 04, 2017 13:53
--- NOTE | 2017-03-04 13:57 | DS ---
Date/Time of Note Date/Time of Note DATE: 03/04/17 TIME: 13:56 Discharge Summary Admission/Discharge Info Admit Date/Time Feb 27, 2017 at 19:00 Discharge Date/Time Discharge Diagnosis COPD exacerbation Patient Condition: Fair Hospital Course 62 yo male with h/o tobacco use d/o, COPD presenting with acute on chronic COPD exacerbation The patient was treated with bronchodilators, systemic prednisone, and antibiotics. His respiratory status improved to baseline. He was discharged to further care as an outpatient on symbicort and spiriva with albuerol PRN. He was encouraged to stop smoking cigarettes Home Meds Active Scripts Sodium Chloride* (NS* 3 ml (Saline Flush)) 3 Ml Soln, 3 ML IV .PER PROTOCOL for 60 Days, #2 INHALER Prov:BARBARA TINAJERO MD 03/04/17 Divalproex Sodium* (Depakote*) 125 Mg Tablet., 125 MG PO QID, #120 TAB Prov:KIKI BOYCE NP 02/19/17 Oxcarbazepine* (Trileptal*) 150 Mg Tablet, 150 MG PO BID, #60 TAB Prov:KIKI BOYCE NP 02/19/17 Hydrocodone/Acetaminophen ([place] 5-325 Tablet) 1 Each Tablet, 1 EACH PO Q6H for PAIN, #10 TAB Prov:KIKI BOYCE NP 02/19/17 Salmeterol Xinaf/Fluticasone* (Advair*) 250-50 Diskus Inhaler, 1 INH INH BID, # 1 INHALER Prov:KIKI BOYCE NP 02/19/17 Prednisone* (Prednisone*) 20 Mg Tab, 40 MG PO DAILY for 2 Days, #2 TAB Prednisone 40 mg p.o. daily 2 days, then Prednisone 20 mg p.o. daily 2 days, then Prednisone 10 mg p.o. daily 2 days, then Prednisone 5 mg p.o. daily 2 days. Prov:KIKI BOYCE NP 02/19/17 Albuterol Sulfate* (Ventolin HFA*) 18 Gm Hfa.aer.ad, 2 PUFF INHALATION Q4H, #1 INHALER Prov:TAL MOSES 01/27/17 Carvedilol* (Carvedilol*) 3.125 Mg Tablet, 3.125 MG PO BID for 30 Days, #60 TAB Prov:TAL MOSES 01/27/17 Follow-up Plan Use your inhaler daily as prescribed. Use albeterol if you feel acutely short of breath. Return to the hospital if you have any worsening of your breathing or any other concerning symptoms. Primary Care Provider Care Physician No Primary Time spent on discharge: > 30 minutes BARBARA TINAJERO MD Mar 04, 2017 13:57
[2017-03-04 14:12] VITALS: BP 146/96; RESP 18
[2017-03-04 19:33] VITALS: BP 135/85; RESP 20
[2017-03-05] MEDS: ALBUTEROL/IPRATROPIUM (NEB) 3 ML AMP HHN SCH ×3 (00:40→08:38)
[2017-03-05 01:58] VITALS: BP 135/89; RESP 20
[2017-03-05] MEDS: LEVOFLOXACIN 500MG/D5W (PMX) 100 ML IVPB SCH (06:10)
[2017-03-05] MEDS: SALMETEROL/FLUTICASONE 250/50 INHA INH SCH (08:31)
[2017-03-05] MEDS: METHYLPREDNISOLONE 125 MG INJ IV SCH (08:32)
[2017-03-05] MEDS: DIVALPROEX (EC) 125 MG TAB PO SCH ×2 (08:32→11:51)
[2017-03-05] MEDS: OXCARBAZEPINE 150 MG TAB PO SCH (08:32)
[2017-03-05] MEDS: HEPARIN 5,000 UNIT/0.5 ML VIAL SC SCH (08:33)
[2017-03-05] MEDS: NICOTINE (14 MG/24 HR) PATCH TRANSDERM SCH (08:40)
[2017-03-05] MEDS ORDERED: TIOT18CA INHALATION (09:32)
[2017-03-05 09:33] VITALS: BP 136/87; RESP 16
== END 2017-03-05 12:57 | disposition home or self-care (01) | DRG 190 ==
LOC: E/R 12:50 → MS4 19:00 → PP2 03-02 17:57
PROVIDERS: ADMIT Internal Medicine; ATTEND Internal Medicine
PROC: 5A09357 Assistance with Respiratory Ventilation, Less than 24 Consecutive Hours, Continuous Positive Airway Pressure (ICD-10-PCS; principal; 2017-02-27)
DX: J44.1 Chronic obstructive pulmonary disease with (acute) exacerbation (principal); J96.00 Acute respiratory failure, unspecified whether with hypoxia or hypercapnia; I10 Essential (primary) hypertension; F31.9 Bipolar disorder, unspecified; F17.200 Nicotine dependence, unspecified, uncomplicated
CPT/HCPCS: 36415; 71010; 80048; 80053; 83690; 83735; 83880; 84100; 84484; 85025; 87040; 93005; 94640; 94644; 94660; 94664; 96374; 96375; J1644; J1956; J2270; J2930; J3475; J7040